=== PATIENT | male | born 1950 | race Caucasian/White ===

== ENCOUNTER → 2017-08-08 | Outpatient (CLI) | payer BC ==
[~2017-08-08] MED LIST: ALA; ALBU1AER9 INH; BIOCIDIN; CHOL1TAB42; COCONUT PO; FISHOIL PO; METHYL CPG; MULTCAP42 PO; NAC; TRANSFER FACTOR; [UNRECOGNIZED DRUG - OTHER]; [UNRECOGNIZED DRUG - OTHER]; [UNRECOGNIZED DRUG - OTHER]; probiotic; tumeric
[2017-08-13 05:39] LABS: ANA SCREEN TC 249X POSITIVE (NEGATIVE); ANTI-SS-A <1.0 NEG AI (<1.0 NEG); ANTI-SS-B <1.0 NEG AI (<1.0 NEG); ANTICARDIOLIPID AB IGA <11 APL (< = 11); COMPLEMENT C3 TC 44859W 121 MG/DL (90-180); COMPLEMENT C4 TC 44982E 26 MG/DL (16-47); MICROSOMAL AB <1 IU/ML (<9)
[2017-08-13 13:08] LABS: ANA TITER 1:40 TITER (<1:40)
== END | disposition home or self-care (01) ==
LOC: C.LAB1850 14:54
PROVIDERS: ATTEND Internal Medicine Infectious Disease
DX: F03.90 Unspecified dementia, unspecified severity, without behavioral disturbance, psychotic disturbance, mood disturbance, and anxiety (principal)

== ENCOUNTER 2022-01-16 11:39 | Inpatient (IN) ==
[2022-01-16 12:22] LABS: Appearance Urine Clear (Clear); Bacteria Urine Automated Negative (Negative); Bilirubin Urine Negative (Negative); Blood Urine Negative (Negative); Color Urine Yellow; Epithelial Cell Urine Auto >30 /lpf (0-5); Glucose Urine UA Trace (Negative); Ketones Urine Trace (Negative); Leukocyte Esterase Urine Negative (Negative); Nitrite Urine Negative (Negative); Protein Urine Trace (Negative); RBC Urine Automated 0-4 /hpf (0-4); Specific Gravity Urine 1.028 (1.000-1.030); Urobilinogen Urine Negative (Negative); pH Urine 6.5 (4.5-7.5)
--- NOTE | 2022-01-16 12:28 | Emergency Department Note ---
History of Present Illness General Chief complaint: Leg Weakness, Bilateral Stated complaint: FELL,LOSS OF MUSCLE CONTROLL,NECK PAIN Time Seen by Provider: 01/16/22 12:16 History of Present Illness 71-year-old male presents to the ED with a chief complaint change in mental status over the past 24 hours. Normally he is able to ambulate but has not been able to ambulate for about 24 hours. He fell last night around 10:30 PM. He fell onto the bed and against a nightstand. He has had a cough for the past cou ple of days. The patient had some Advil this morning. He does have a chronic history of dementia. He has had this for around 10 years. When the contacted the PCPs office, they recommended that the patient come into the ED for evaluation. Home Medications Medication Instructions Recorded Confirmed Type L-Threonine Tab 1 tab PO DAILY 04/01/21 04/01/21 History Bharath Restful Sleep 1 tab PO HS 04/01/21 04/01/21 History aspirin 81 mg tablet 81 mg PO DAILY 04/01/21 04/01/21 History atorvastatin 40 mg tablet 40 mg PO QPM 04/01/21 04/01/21 History memantine 10 mg tablet 10 mg PO BID 04/01/21 04/01/21 History sertraline 50 mg tablet 50 mg PO DAILY 04/01/21 04/01/21 History Allergies Allergy/AdvReac Type Severity Reaction Status Date / Time celecoxib Allergy Unknown RASH Verified 04/01/21 16:47 penicillin V Allergy Unknown COLITIS Verified 04/01/21 16:47 WITH ALL CILLINS Past Med/Surg History Medical History Dementia High cholesterol Surgical History History of knee joint replacement Social History Smoking Status: Never smoker Feels Safe at Home: Yes Review of Systems A total of 10 systems reviewed and were otherwise negative Physical Exam Vital Signs Vital Signs - 24 hr 01/16/22 11:41 01/16/22 12:54 Temperature 36.8 C Temperature Source Temporal Artery Scan Pulse Rate 108 H Pulse Rate [Apical] 68 Pulse Rhythm [Apical] Regular Respiratory Rate 18 16 Respiratory Effort / Characteristics Non-Labored Non-Labored Respiratory Depth Normal Normal Blood Pressure 124/80 Blood Pressure [Right Arm] 121/76 Blood Pressure Mean 94 Blood Pressure Mean [Right Arm] 91 Pulse Oximetry 97 98 Oxygen Delivery Method Room Air Room Air Sepsis Recent Fever Within 48 Hours No Sepsis New/Unexplained Change in Mental Status No Sepsis Action Taken by Nursing No Action Required CONSTITUTIONAL/VITAL SIGNS: Reviewed / noted above. GENERAL: Non-toxic in appearance. INTEGUMENTARY: Warm, dry, and [place]. HEAD: Normocephalic. EYES: without scleral icterus or trauma. ENT/OROPHARYNX: clear and moist. LYMPHADENOPATHY/NECK: Is supple without lymphadenopathy or meningismus. RESPIRATORY: Clear to auscultation bilaterally. No increased work of breathing. CARDIOVASCULAR: Regular rate and rhythm. GI/ABDOMEN: Soft and nontender. No organomegaly or pulsatile mass. EXTREMITIES: Warm and well perfused. BACK: No CVA tenderness. NEUROLOGICAL: Patient does not follow commands. Minimal verbal skills which are known comprehensible. Moves all 4 extremities. PSYCHIATRIC: Unable to assess. MUSCULOSKELETAL: Normally developed with good muscle tone. TRIAGE NURSING DOCUMENTATION REVIEWED. Medical Decision Making Differential Diagnosis Differential includes acute coronary syndrome, myocardial infarction, CVA, TIA, anemia, infection, pneumonia, UTI, pyelonephritis, poor nutrition, dehydration, electrolyte disturbance,hypoglycemia. Medical Records Attestation: I reviewed the patient's medical records. Home Medications Current Medication List: was personally reviewed by me Laboratory Data Attestation: I reviewed the patient's lab results. Result diagrams: 01/16/22 12:16 01/16/22 12:16 Lab Results 01/16/22 01/16/22 01/16/22 Range/Units 11:55 12:16 12:16 WBC 6.58 (4.8-10.8) K/ul RBC 5.02 (4.63-6.08) M/uL Hgb 16.0 (14.0-18.0) g/dl Hct 46.6 (40.1-51.0) % MCV 92.8 (80.0-100.0) fL MCH 31.9 (25.0-34.0) pg MCHC 34.3 (32.0-36.0) g/dL RDW Std Deviation 41.1 (36.4-46.3) fL RDW Coeff of [place] 12.0 (11.5-14.5) % Plt Count 138 (130-400) K/uL MPV 10.0 (9.4-12.4) fL Immature Gran % (Auto) 0.3 % Neut % (Auto) 76.3 % Lymph % (Auto) 12.8 % [place] % (Auto) 9.7 % Eos % (Auto) 0.3 % Baso % (Auto) 0.6 % Neut # (Auto) 5.02 (1.4-6.5) K/uL Lymph # (Auto) 0.84 L (1.2-3.4) K/uL [place] # (Auto) 0.64 (0.24-0.82) K/uL Eos # (Auto) 0.02 (0-0.50) K/uL Baso # (Auto) 0.04 (0-0.2) K/uL Immature Gran # (Auto) 0.02 (0.00-0.02) K/uL Sodium 138 (136-145) mmol/L Potassium 4.2 (3.5-5.1) mmol/L Chloride 100 (98-107) mmol/L Carbon Dioxide 28 (21-32) mmol/L Anion Gap 10 (3-11) BUN 17 (6-23) mg/dl Creatinine 1.19 (0.6-1.4) mg/dl Est Cr Clr Drug Dosing Not Reportable Est GFR ( Amer) 71.8 ml/min Est GFR (Non-Af Amer) 62.0 ml/min BUN/Creatinine Ratio 14.3 (10-20) Glucose 191 H (70-99(Fasting)) mg/dl Calcium 9.2 (8.5-10.1) mg/dl Total Bilirubin 0.9 (0.2-1.0) mg/dl AST 42 H (13-39) U/L ALT 41 (7-52) U/L Alkaline Phosphatase 88 (34-104) U/L Troponin I High Sens 9.5 (0-20) pg/ml Total Protein 7.4 (6.0-8.3) gm/dl Albumin 4.4 (3.4-5.0) gm/dl Globulin 3.0 (2.5-4.0) gm/dl Albumin/Globulin Ratio 1.5 (0.9-2) TSH (0.300-4.500) uIu/ml Urine Color Yellow Urine Appearance Clear (Clear) Urine pH 6.5 (4.5-7.5) Ur Specific [place] 1.028 (1.000-1.030) Urine Protein Trace H (Negative) Urine Glucose (UA) Trace H (Negative) Urine Ketones Trace H (Negative) Urine Blood Negative (Negative) Urine Nitrite Negative (Negative) Urine Bilirubin Negative (Negative) Urine Urobilinogen Negative (Negative) Ur Leukocyte Esterase Negative (Negative) Urine WBC (Auto) 1-5 (0-5) /hpf Urine RBC (Auto) 0-4 (0-4) /hpf U Hyaline Cast (Auto) 1-5 (0-5) /lpf U Epithel Cells (Auto) >30 H (0-5) /lpf Urine Bacteria (Auto) Negative (Negative) Ur Renal Epithelial Cell Not Reportable Urine Mucus Present A (None Prsent) Urine Sperm Present A (None Prsent) SARS-CoV-2, RNA, NAAT (NEGATIVE) 01/16/22 01/16/22 Range/Units 12:16 12:49 WBC (4.8-10.8) K/ul RBC (4.63-6.08) M/uL Hgb (14.0-18.0) g/dl Hct (40.1-51.0) % MCV (80.0-100.0) fL MCH (25.0-34.0) pg MCHC (32.0-36.0) g/dL RDW Std Deviation (36.4-46.3) fL RDW Coeff of [place] (11.5-14.5) % Plt Count (130-400) K/uL MPV (9.4-12.4) fL Immature Gran % (Auto) % Neut % (Auto) % Lymph % (Auto) % [place] % (Auto) % Eos % (Auto) % Baso % (Auto) % Neut # (Auto) (1.4-6.5) K/uL Lymph # (Auto) (1.2-3.4) K/uL [place] # (Auto) (0.24-0.82) K/uL Eos # (Auto) (0-0.50) K/uL Baso # (Auto) (0-0.2) K/uL Immature Gran # (Auto) (0.00-0.02) K/uL Sodium (136-145) mmol/L Potassium (3.5-5.1) mmol/L Chloride (98-107) mmol/L Carbon Dioxide (21-32) mmol/L Anion Gap (3-11) BUN (6-23) mg/dl Creatinine (0.6-1.4) mg/dl Est Cr Clr Drug Dosing Est GFR ( Amer) ml/min Est GFR (Non-Af Amer) ml/min BUN/Creatinine Ratio (10-20) Glucose (70-99(Fasting)) mg/dl Calcium (8.5-10.1) mg/dl Total Bilirubin (0.2-1.0) mg/dl AST (13-39) U/L ALT (7-52) U/L Alkaline Phosphatase (34-104) U/L Troponin I High Sens (0-20) pg/ml Total Protein (6.0-8.3) gm/dl Albumin (3.4-5.0) gm/dl Globulin (2.5-4.0) gm/dl Albumin/Globulin Ratio (0.9-2) TSH 1.384 (0.300-4.500) uIu/ml Urine Color Urine Appearance (Clear) Urine pH (4.5-7.5) Ur Specific [place] (1.000-1.030) Urine Protein (Negative) Urine Glucose (UA) (Negative) Urine Ketones (Negative) Urine Blood (Negative) Urine Nitrite (Negative) Urine Bilirubin (Negative) Urine Urobilinogen (Negative) Ur Leukocyte Esterase (Negative) Urine WBC (Auto) (0-5) /hpf Urine RBC (Auto) (0-4) /hpf U Hyaline Cast (Auto) (0-5) /lpf U Epithel Cells (Auto) (0-5) /lpf Urine Bacteria (Auto) (Negative) Ur Renal Epithelial Cell Urine Mucus (None Prsent) Urine Sperm (None Prsent) SARS-CoV-2, RNA, NAAT POSITIVE A* (NEGATIVE) Imaging Data Radiologist's Impression: Chest X-Ray 01/16/22 11:48 XR chest 1V portable CLINICAL HISTORY: weakness COMPARISON STUDY: Chest radiograph April 01, 2021. FINDINGS: Lung volumes are normal. Linear left basilar opacity reflects atelectasis. There is no pneumothorax or pleural effusion. Cardiac size is normal. Mediastinal contours are normal. There is no evidence for pulmonary edema. Old left-sided rib deformities are unchanged. IMPRESSION: No acute cardiopulmonary findings. ACT 112: Negative or not required by law. Electronically signed by: Jaxon Chavira M.D. 01/16/2022 12:[address] 01/16/22 12:27 CT cervical spine wo con CLINICAL HISTORY: fall TECHNIQUE: Multidetector row helical CT of the cervical spine was performed without administration of intravenous contrast. Coronal and sagittal reformations were obtained. Automated dose lowering techniques and/or adjustment according to patient size were utilized for this exam. Comparison: None available at the time of this dictation. FINDINGS: No acute fractures or subluxations are identified. Degenerative changes are seen in the visualized spine. The alignment is normal. Soft tissues are unremarkable. IMPRESSION: Degenerative changes without evidence of acute bony injury. ACT 112: Negative or not required by law. Electronically signed by: Giancarlo Cruz M.D. 01/16/2022 1:[address] 01/16/22 12:27 CT head/brain wo con CLINICAL HISTORY: fall with pain COMPARISON STUDY: No previous studies for comparison. CT DOSE: 823.94 mGycm TECHNIQUE: Standard CT of the Brain was performed without IV contrast. A dose lowering technique was utilized adhering to the principles of ALARA. FINDINGS: Extraaxial space: There is no evidence for subdural hematoma. There are no extra-axial fluid collections. Ventricles and cisterns: The ventricles are mildly to moderately dilated bilaterally. There is no evidence for midline shift or mass effect. Parenchyma: There is no subarachnoid or intraparenchymal hemorrhage. There is no evidence for an acute infarct or cerebral edema. There is evidence for an old, sharply defined lacunar infarct within the basal ganglia on the left. There is mild cerebral cortical atrophy and decreased attenuation in the periventricular white matter representing remote small vessel disease. There are no gross mass lesions. Osseous structures: There is no evidence for an acute fracture. There is mild mucosal thickening involving the floor the right maxillary. The remaining visual ized paranasal sinuses are clear. The mastoid air cells are clear bilaterally. Soft tissues: There is no evidence for focal soft tissue swelling. IMPRESSION: 1. No acute intracerebral pathology. 2. Old lacunar infarct within the basal ganglia on the left. 3. Mild cerebral cortical atrophy and remote small vessel disease. 4. Mild chronic right maxillary sinusitis ACT 112: Negative or not required by law. Electronically signed by: Gavino Keys M.D. 01/16/2022 1:32 PM ECG Data Attestation: I personally reviewed and interpreted this ECG as follows: Additional Comments: Twelve-lead EKG: Per my interpretation shows a normal sinus rhythm at a rate of 67. No ST elevation. No PVCs. Normal QTC. MDM Narrative 71-year-old male presents to the ED from home with a concern about worsening weakness and a fall in the setting of chronic dementia. Fell last night around 10:30 PM. Past 24 hours has not been able to ambulate. Normally ambulates without assistance devices. His twelve-lead EKG shows a normal sinus rhythm. Urine did not show infection. CBC was normal. Chemistry panel was unremarkable. Glucose is 191. Troponin was negative. TSH was normal. Urine did not show infection. CT scan of the head and CT scan of the cervical spine did not show acute injury. Chest x-ray was also negative for acute disease. COVID test was positive. The patient and family were told the results of the test. The patient was seen by the hospitalist for further evaluation and care. Impression & Plan Ambulatory dysfunction, Altered mental status, COVID-19 Discharge Plan Visit Data Chief Complaint: Leg Weakness, Bilateral Stated Complaint: FELL,LOSS OF MUSCLE CONTROLL,NECK PAIN ED Provider: Fidencio Alvarez Discharge Problem: Ambulatory dysfunction, Altered mental status, COVID-19 Patient Disposition: Being Evaluated by Hospitalist Forms Stand Alone Forms: My [facility], Virtual Emergency Department, Important Visit Information Prescriptions Prescriptions: No Action memantine 10 mg tablet 10 mg PO BID atorvastatin 40 mg tablet 40 mg PO QPM Low-Dose Aspirin 81 mg Tablet 81 mg PO DAILY sertraline 50 mg tablet 50 mg PO DAILY L-Threonine Tab 1 tab PO DAILY Bharath Restful Sleep 1 tab PO HS Referrals Referrals: Corby Cox, [Primary Care Provider] -
[2022-01-16 12:37] LABS: Mucus Urine Present (None Prsent)
[2022-01-16 12:38] LABS: Sperm Urine Present (None Prsent)
--- NOTE | 2022-01-16 12:38 | XRay Report ---
XR chest 1V portable CLINICAL HISTORY: weakness COMPARISON STUDY: Chest radiograph April 01, 2021. FINDINGS: Lung volumes are normal. Linear left basilar opacity reflects atelectasis. There is no pneu mothorax or pleural effusion. Cardiac size is normal. Mediastinal contours are normal. There is no ev idence for pulmonary edema. Old left-sided rib deformities are unchanged. IMPRESSION: No acute cardiopulmonary findings. ACT 112: Negative or not required by law. Electronically signed by: Jaxon Chavira M.D. 01/16/2022 12:37 PM
[2022-01-16 12:59] LABS: Troponin I High Sensitivity 9.5 pg/ml (0-20)
[2022-01-16 13:05] LABS: Alanine Aminotransferase 41 U/L (7-52); Albumin Globulin Ratio 1.5 (0.9-2); Albumin Level 4.4 gm/dl (3.4-5.0); Alkaline Phosphatase 88 U/L (34-104); Anion Gap 10 (3-11); Aspartate Aminotransferase 42 U/L (13-39); BUN Creatinine Ratio 14.3 (10-20); Bilirubin,Total 0.9 mg/dl (0.2-1.0); Blood Urea Nitrogen 17 mg/dl (6-23); Calcium 9.2 mg/dl (8.5-10.1); Carbon Dioxide 28 mmol/L (21-32); Chloride 100 mmol/L (98-107); Est GFR (African American) 71.8 ml/min; Glucose 191 mg/dl (70-99(Fasting)); Potassium 4.2 mmol/L (3.5-5.1); Sodium 138 mmol/L (136-145); Total Protein 7.4 gm/dl (6.0-8.3)
[2022-01-16 13:10] LABS: Hematocrit (blood only) 46.6 % (40.1-51.0); Mean Corpuscular Hemoglobin 31.9 pg (25.0-34.0); Mean Corpuscular Hgb Conc 34.3 g/dL (32.0-36.0); Mean Corpuscular Volume 92.8 fL (80.0-100.0); Platelet Count 138 K/uL (130-400); RDW Standard Deviation 41.1 fL (36.4-46.3); Red Blood Count 5.02 M/uL (4.63-6.08); White Blood Count 6.58 K/ul (4.8-10.8)
[2022-01-16 13:11] LABS: Basophils # (auto) 0.04 K/uL (0-0.2); Basophils % (auto) 0.6 %; Eosinophils # (auto) 0.02 K/uL (0-0.50); Eosinophils % (auto) 0.3 %; Immature Granulocytes # (auto) 0.02 K/uL (0.00-0.02); Immature Granulocytes % (auto) 0.3 %; Lymphocytes # (auto) 0.84 K/uL (1.2-3.4); Lymphocytes % (auto) 12.8 %; Monocytes # (auto) 0.64 K/uL (0.24-0.82); Monocytes % (auto) 9.7 %; Neutrophils # (auto) 5.02 K/uL (1.4-6.5); Neutrophils % (auto) 76.3 %
--- NOTE | 2022-01-16 13:33 | CT Scan Report ---
CT head/brain wo con CLINICAL HISTORY: fall with pain COMPARISON STUDY: No previous studies for comparison. CT DOSE: 823.94 mGycm TECHNIQUE: Standard CT of the Brain was performed without IV contrast. A dose lowering technique was utilized adhering to the principles of ALARA. FINDINGS: Extraaxial space: There is no evidence for subdural hematoma. There are no extra-axial fluid collecti ons. Ventricles and cisterns: The ventricles are mildly to moderately dilated bilaterally. There is no bryon dence for midline shift or mass effect. Parenchyma: There is no subarachnoid or intraparenchymal hemorrhage. There is no evidence for an acut e infarct or cerebral edema. There is evidence for an old, sharply defined lacunar infarct within the basal ganglia on the left. There is mild cerebral cortical atrophy and decreased attenuation in the periventricular white matter representing remote small vessel disease. There are no gross mass lesion s. Osseous structures: There is no evidence for an acute fracture. There is mild mucosal thickening invo lving the floor the right maxillary. The remaining visualized paranasal sinuses are clear. The mastoi d air cells are clear bilaterally. Soft tissues: There is no evidence for focal soft tissue swelling. IMPRESSION: 1. No acute intracerebral pathology. 2. Old lacunar infarct within the basal ganglia on the left. 3. Mild cerebral cortical atrophy and remote small vessel disease. 4. Mild chronic right maxillary sinusitis ACT 112: Negative or not required by law. Electronically signed by: Gavino Keys M.D. 01/16/2022 1:32 PM
--- NOTE | 2022-01-16 13:37 | CT Scan Report ---
CT cervical spine wo con CLINICAL HISTORY: fall TECHNIQUE: Multidetector row helical CT of the cervical spine was performed without administration of intravenous contrast. Coronal and sagittal reformations were obtained. Automated dose lowering techn iques and/or adjustment according to patient size were utilized for this exam. Comparison: None available at the time of this dictation. FINDINGS: No acute fractures or subluxations are identified. Degenerative changes are seen in the visualized sp ine. The alignment is normal. Soft tissues are unremarkable. IMPRESSION: Degenerative changes without evidence of acute bony injury. ACT 112: Negative or not required by law. Electronically signed by: Giancarlo Cruz M.D. 01/16/2022 1:36 PM
--- NOTE | 2022-01-16 15:41 | History & Physical Report ---
Date of Service January 16, 2022 Assessment & Plan (1) Dementia: (2) Ambulatory dysfunction: Plan: Admit to [facility] Patient presenting from home with generalized weakness, fall. Head CT, C-spine CT negative for acute findings. History of advanced dementia Tested positive for COVID-19 in the ED Patient currently too weak to return home with . states that she is considering long-term placement. PT/OT, case management consults (3) COVID-19: Plan: Saturating well on room air, no signs of pneumonia on CXR No indication for COVID-19 directed therapies at this time Trace ketones noted in urine, patient may be mildly dehydrated, will give 1 L IVF (4) History of CVA (cerebrovascular accident): Plan: Continue ASA and statin (5) DVT prophylaxis: Plan: SQ Lovenox History of Present Illness Chief Complaint: Generalized weakness Primary Care Provider: Corby Cox DO 71-year-old male with PMH advanced dementia, history of CVA, HLD, and other problems listed below who presents the ED for evaluation of generalized weakness. Due to patient's advanced dementia, history is unobtainable from him. History is obtained from patient's at the bedside. A couple of days ago, while taking their dog for a walk, patient's noticed that he was shuffling his feet and leaning forward. Yesterday, patient was increasingly confused from his baseline. He had fallen out of bed overnight. Patient typically can walk unassisted. His speech is garbled and nonsensical at baseline. notes a mild cough and rhinorrhea since yesterday. No fever. No other symptoms reported. In the ED, patient tested positive for COVID-19. No signs of pneumonia on CXR and patient is saturating well on room air. Labs unremarkable. Patient is currently too weak to return home with his . Allergies Allergy/AdvReac Type Severity Reaction Status Date / Time ampicillin Allergy Unknown colitis Verified 01/16/22 15:55 celecoxib Allergy Unknown RASH Verified 04/01/21 16:47 clindamycin Allergy Unknown colitis Verified 01/16/22 15:55 penicillin V Allergy Unknown COLITIS Verified 04/01/21 16:47 WITH ALL CILLINS Home Medications Medication Instructions Recorded Confirmed Type L-Threonine Tab 1 tab PO DAILY 04/01/21 01/16/22 History Bharath Restful Sleep 1 tab PO HS 04/01/21 01/16/22 History aspirin 81 mg tablet 81 mg PO Q2D 04/01/21 01/16/22 History atorvastatin 40 mg tablet 40 mg PO QPM 04/01/21 01/16/22 History memantine 10 mg tablet 10 mg PO BID 04/01/21 01/16/22 History sertraline 50 mg tablet 50 mg PO DAILY 04/01/21 01/16/22 History Past Med/Surg History Medical History (Updated 01/16/22 @ 15:51 by RICARDO Bains) Dementia High cholesterol History of CVA (cerebrovascular accident) Surgical History History of knee joint replacement Family History (Updated 01/16/22 @ 15:48 by RICARDO Bains) Mother Diabetes Social History (Updated 01/16/22 @ 15:48 by RICARDO Bains) Smoking Status: Never smoker Hx Alcohol Use: No Feels Safe at Home: Yes Review of Systems Review of Systems: Unobtainable due to cognitive status Physical Exam Constitutional: WD/WN, vitals as above Eyes: PERRL, conjunctivae normal, anicteric sclerae ENMT: external ear and nose normal, oropharynx normal Respiratory: normal respiratory effort, lungs clear to auscultation Cardiovascular: Rate/Rhythm: regular rate and regular rhythm Vessels: normal peripheral pulses Extremities: no edema Gastrointestinal (Abdomen): normal bowel sounds, soft, nontender, no hepatosplenomegaly Musculoskeletal: Extremities: no cyanosis and no clubbing Patient does not look commands in order to assess strength Skin: no rashes, warm and dry Neurologic: Speech / Cognition: + abnormal speech (Mumbled, nonsensical speech) Unable to complete neurologic exam due to underlying advanced dementia Psychiatric: Orientation: alert; + not oriented to person, + not oriented to place and + not oriented to time Results & Data Results & Data ([facility]) Vital Signs (Past 12 Hours) Vital Signs Temp Pulse Pulse Resp BP BP Pulse Ox 01/16/22 14:00 70 16 107/86 97 01/16/22 12:54 68 16 121/76 98 01/16/22 11:41 36.8 C 108 H 18 124/80 97 O2 Del Method 01/16/22 14:00 Room Air 01/16/22 12:54 Room Air 01/16/22 11:41 Room Air Laboratory Results Short CBC 01/16/22 Range/Units 12:16 WBC 6.58 (4.8-10.8) K/ul Hgb 16.0 (14.0-18.0) g/dl Hct 46.6 (40.1-51.0) % Plt Count 138 (130-400) K/uL BMP 01/16/22 12:16 Sodium 138 Potassium 4.2 Chloride 100 Carbon Dioxide 28 BUN 17 Creatinine 1.19 Glucose 191 H Calcium 9.2 Liver Function 01/16/22 Range/Units 12:16 Total Bilirubin 0.9 (0.2-1.0) mg/dl AST 42 H (13-39) U/L ALT 41 (7-52) U/L Alkaline Phosphatase 88 (34-104) U/L Albumin 4.4 (3.4-5.0) gm/dl Urine 01/16/22 Range/Units 11:55 Urine Color Yellow Urine Appearance Clear (Clear) Urine pH 6.5 (4.5-7.5) Ur Specific [place] 1.028 (1.000-1.030) Urine Protein Trace H (Negative) Urine Glucose (UA) Trace H (Negative) Diagnostic Findings Chest X-Ray 01/16/22 11:48 XR chest 1V portable CLINICAL HISTORY: weakness COMPARISON STUDY: Chest radiograph April 01, 2021. FINDINGS: Lung volumes are normal. Linear left basilar opacity reflects atelectasis. There is no pneumothorax or pleural effusion. Cardiac size is normal. Mediastinal contours are normal. There is no evidence for pulmonary edema. Old left-sided rib deformities are unchanged. IMPRESSION: No acute cardiopulmonary findings. ACT 112: Negative or not required by law. Electronically signed by: Jaxon Chavira M.D. 01/16/2022 12:[address] 01/16/22 12:27 CT cervical spine wo con CLINICAL HISTORY: fall TECHNIQUE: Multidetector row helical CT of the cervical spine was performed without administration of intravenous contrast. Coronal and sagittal reformations were obtained. Automated dose lowering techniques and/or adjustment according to patient size were utilized for this exam. Comparison: None available at the time of this dictation. FINDINGS: No acute fractures or subluxations are identified. Degenerative changes are seen in the visualized spine. The alignment is normal. Soft tissues are unremarkable. IMPRESSION: Degenerative changes without evidence of acute bony injury. ACT 112: Negative or not required by law. Electronically signed by: Giancarlo Cruz M.D. 01/16/2022 1:[address] 01/16/22 12:27 CT head/brain wo con CLINICAL HISTORY: fall with pain COMPARISON STUDY: No previous studies for comparison. CT DOSE: 823.94 mGycm TECHNIQUE: Standard CT of the Brain was performed without IV contrast. A dose lowering technique was utilized adhering to the principles of ALARA. FINDINGS: Extraaxial space: There is no evidence for subdural hematoma. There are no extra-axial fluid collections. Ventricles and cisterns: The ventricles are mildly to moderately dilated bilaterally. There is no evidence for midline shift or mass effect. Parenchyma: There is no subarachnoid or intraparenchymal hemorrhage. There is no evidence for an acute infarct or cerebral edema. There is evidence for an old, sharply defined lacunar infarct within the basal ganglia on the left. There is mild cerebral cortical atrophy and decreased attenuation in the periventricular white matter representing remote small vessel disease. There are no gross mass lesions. Osseous structures: There is no evidence for an acute fracture. There is mild mucosal thickening involving the floor the right maxillary. The remaining visualized paranasal sinuses are clear. The mastoid air cells are clear bilaterally. Soft tissues: There is no evidence for focal soft tissue swelling. IMPRESSION: 1. No acute intracerebral pathology. 2. Old lacunar infarct within the basal ganglia on the left. 3. Mild cerebral cortical atrophy and remote small vessel disease. 4. Mild chronic right maxillary sinusitis ACT 112: Negative or not required by law. Electronically signed by: Gavino Keys M.D. 01/16/2022 1:32 PM Code Status & VTE Plan Code Status Patient is a DNR as per my discussion with his who is at the bedside. Supervising Physician Co-Signing Physician Notes Patient was seen and examined independently at bedside. Chart reviewed. Case discussed with Poonam SILVA and agree with the documentation above with regards to HPI, physical exam and assessment plan. In summary, this is a 71 year old male with advanced Alzheimer's dementia who presented with generalized weakness and ambulatory dysfunction in setting of COVID 19 infection. Vitals stable, saturating well in room air. Awake alert but not answering appropriately or following commands, chest clear, abd benign, heart sounds normal, no LE edema. Will place in observation, gentle ivf, PT/OT eval, will need rehab. Rest as per the note above.
[2022-01-16] MEDS ORDERED: GLUCOSE 40% GEL 15 GM TUBE PO PRN (17:41)
[2022-01-16] MEDS ORDERED: SODIUM CHLORIDE 0.9% 1000ML 1,000 ML IV SCH (17:41)
[2022-01-16] MEDS ORDERED: GLUCOSE 10 TAB/TUBE PO PRN (17:41)
[2022-01-16] MEDS ORDERED: DEXTROSE 50% 50 ML SYRINGE IV PRN (17:41)
[2022-01-16] MEDS ORDERED: GLUCAGON FOR INJ 1 MG VIAL SQ PRN (17:41)
[2022-01-16] MEDS ORDERED: CARBOHYDRATES FOR HYPOGLYCEMIA PO PRN (17:41)
[2022-01-16] MEDS ORDERED: Patient's HEIGHT &/or WEIGHT Needed SCH (18:00)
[2022-01-16] MEDS: SERTRALINE HCL 50 MG TABLET PO SCH (19:50)
[2022-01-16] MEDS: ATORVASTATIN 40 MG TAB PO SCH (19:51)
[2022-01-16] MEDS: MEMANTINE HCL 10 MG TAB PO SCH (19:52)
[2022-01-16] MEDS: INSULIN ASPART PER UNIT SC SCH ×2 (20:51→21:31)
[2022-01-16] MEDS: ACETAMINOPHEN 325 MG TAB PO PRN (21:37)
[2022-01-16] MEDS: ENOXAPARIN INJ 40 MG/0.4 ML SYR SQ SCH (21:37)
--- NOTE | 2022-01-17 06:01 | Electrocardiogram Report ---
Test Reason : Blood Pressure : / mmHG Vent. Rate : 067 BPM Atrial Rate : 067 BPM P-R Int : 186 ms QRS Dur : 078 ms QT Int : 442 ms P-R-T Axes : 055 101 023 degrees QTc Int : 467 ms Normal sinus rhythm Rightward axis Cannot rule out Anterior infarct , age undetermined Nonspecific T wave abnormality Abnormal ECG When compared with ECG of 01-APR-2021 14:45, MA interval has decreased Nonspecific T wave abnormality now evident in Anterior leads Confirmed by Fan Gomez ([id number]) on 01/17/2022 6:00:46 AM Referred By: Confirmed By:Fan Gomez
[2022-01-17] MEDS: MEMANTINE HCL 10 MG TAB PO SCH ×2 (07:52→20:19)
[2022-01-17] MEDS: ASPIRIN 81 MG ECTAB PO SCH (07:52)
[2022-01-17] MEDS: SERTRALINE HCL 50 MG TABLET PO SCH (07:53)
[2022-01-17 08:02] LABS: BUN Creatinine Ratio 15.6 (10-20); Calcium 7.9 mg/dl (8.5-10.1); Creatinine Clr Calc Pharmacy 70.3 ml/min; Est GFR (African American) 93.1 ml/min; Est GFR (Non-African American) 80.3 ml/min; Potassium 4.1 mmol/L (3.5-5.1)
[2022-01-17 08:07] LABS: Hematocrit (blood only) 40.1 % (40.1-51.0); Hemoglobin 14.1 g/dl (14.0-18.0); Mean Corpuscular Hgb Conc 35.2 g/dL (32.0-36.0); Mean Corpuscular Volume 91.1 fL (80.0-100.0); Mean Platelet Volume 9.9 fL (9.4-12.4); Platelet Count 112 K/uL (130-400); RDW Coefficient of Variation 11.9 % (11.5-14.5); RDW Standard Deviation 39.9 fL (36.4-46.3); White Blood Count 8.17 K/ul (4.8-10.8)
[2022-01-17 08:21] LABS: Estimated Average Glucose 137 mg/dl; Hemoglobin A1C 6.4 % (4.5-5.6)
[2022-01-17] MEDS: INSULIN ASPART PER UNIT SC SCH ×4 (09:00→20:18)
--- NOTE | 2022-01-17 11:02 | Hospitalist Progress Note ---
Date of Service January 17, 2022 Assessment & Plan (1) Dementia: Plan: - advanced stage - is primary caregiver who has MS - she feels she is not able to care for him at home any more and he becomes belligerent and aggressive with her at times and she sometimes feels for her physical safety - he is ambulatory at baseline and can get himself to the bathroom usually, per his - not oriented, mostly dependent on most ADLs - looking for LTC placement most likely - CM consulted for above (2) Ambulatory dysfunction: Plan: - Admit to [facility] - Patient presenting from home with generalized weakness, fall. - Head CT, C-spine CT negative for acute findings. - History of advanced dementia - Tested positive for COVID-19 - no pulmonary concerns of pneumonia but likely contributing to his decreased PO intake leading to weakness - improved since IVF - Patient currently too weak to return home with . states that she is considering long-term placement. - PT/OT, case management consults (3) COVID-19: Plan: - Saturating well on room air, no signs of pneumonia on CXR - No indication for COVID-19 directed therapies at this time - Trace ketones noted in urine, patient likely dehydrated - s/p 1 L IVF - encourage PO intake (4) History of CVA (cerebrovascular accident): Plan: - Continue ASA and statin (5) DVT prophylaxis: Plan: - SQ Lovenox Plan DNR/DNI Med/surg Dispo - needs LTC placement - patient medically stable for discharge when facility available - CM consulted Cecil Song MD [facility] Medicine Admission and Anticipated Discharge Date Admission Date: January 16, 2022 Subjective The patient is 71 year old man with pmh advanced dementia, h/o CVA, HLD who presented with generalized weakness from home. Patient found to have COVID19 without pneumonia but likely contributed to his dehydration and decreased functional capacity from baseline. Given IVF and PT/OT consulted. leaning toward LTC as it is difficult for her to care for him by herself. The patient has advanced dementia and was not able to full participate in the exam. Denied any complaints when asked. says he looks better than when he came in yesterday. Review of Systems Review of Systems: All systems reviewed & are unremarkable except as noted in Subjective Physical Exam Physical Exam: Constitutional:L WD/WN, vitals as a james Eyes: PERRL, conjunctiva e normal, anicteri c sclerae ENMT: external ear and n ose normal, oropha rynx normal Respiratory: normal respiratory effort, lungs ronald ar to auscultation Cardiovascular:L Rate/Rhythm: regul ar rate and regula r rhythm Vessels: normal peripheral pulses Extremiti es: no edema Gastrointestinal ( Abdomen): normal bowel sound s, soft, nontender , no hepatosplenom egaly Musculoskeletal: L Extremities: no cy anosis and no club bruno Patient does not follow comman ds consistently in order to assess s trength full - mov ing all extremitie s Skin: no rashes, warm an d dry Neurologic: Speech / Cognition : + abnormal speec h (Mumbled, nonsen sical speech at ti mes) Unable to co mplete neurologic exam due to underl zaire advanced noé ntia Psychiatric: Orientation: alert ; + not oriented t o person, + not or iented to place an d + not oriented t o time Results & Data Results & Data ([facility]) Vital Signs (Past 12 Hours) Vital Signs Temp Pulse Resp BP Pulse Ox O2 Del Method 01/17/22 08:39 36.7 C 65 18 123/82 97 Room Air 01/17/22 08:08 Room Air Laboratory Results Short CBC 01/16/22 01/17/22 Range/Units 12:16 07:12 WBC 6.58 8.17 (4.8-10.8) K/ul Hgb 16.0 14.1 (14.0-18.0) g/dl Hct 46.6 40.1 (40.1-51.0) % Plt Count 138 112 L (130-400) K/uL BMP 01/16/22 01/17/22 12:16 07:12 Sodium 138 138 Potassium 4.2 4.1 Chloride 100 104 Carbon Dioxide 28 28 BUN 17 15 Creatinine 1.19 0.96 Glucose 191 H 140 H Calcium 9.2 7.9 L Liver Function 01/16/22 Range/Units 12:16 Total Bilirubin 0.9 (0.2-1.0) mg/dl AST 42 H (13-39) U/L ALT 41 (7-52) U/L Alkaline Phosphatase 88 (34-104) U/L Albumin 4.4 (3.4-5.0) gm/dl Urine 01/16/22 Range/Units 11:55 Urine Color Yellow Urine Appearance Clear (Clear) Urine pH 6.5 (4.5-7.5) Ur Specific [place] 1.028 (1.000-1.030) Urine Protein Trace H (Negative) Urine Glucose (UA) Trace H (Negative) Medications Administered Current Inpatient Medications Acetaminophen (Acetaminophen 325 Mg Tab) 650 mg PO Q4H PRN PRN Reason: pain/fever Stop: 02/15/22 17:40 Last Admin: 01/16/22 21:37 Dose: 650 mg Aspirin (Aspirin 81 Mg Ectab) 81 mg PO Q2D@0900 GIANCARLO Stop: 02/16/22 08:59 Last Admin: 01/17/22 07:52 Dose: 81 mg Atorvastatin Calcium (Atorvastatin 40 Mg Tab) 40 mg PO QPM GIANCARLO Stop: 02/15/22 20:59 Last Admin: 01/16/22 19:51 Dose: 40 mg Dextrose (Dextrose 50% 50 Ml Syringe) 25 - 50 ml IV UD PRN; Protocol PRN Reason: Hypoglycemia Protocol Stop: 02/15/22 17:40 Enoxaparin Sodium (Enoxaparin Inj 40 Mg/0.4 Ml Syr) 40 mg SQ QPM GIANCARLO Stop: 02/15/22 20:59 Last Admin: 01/16/22 21:37 Dose: 40 mg Glucagon (Glucagon For Inj 1 Mg Vial) 1 mg SQ UD PRN; Protocol PRN Reason: Hypoglycemia Protocol Stop: 02/15/22 17:40 Glucose (Glucose 40% Gel 15 Gm Tube) 15 - 30 gm PO UD PRN; Protocol PRN Reason: Hypoglycemia Protocol Stop: 02/15/22 17:40 Glucose (Glucose 10 Tab/Tube) 4 - 8 tab PO UD PRN; Protocol PRN Reason: Hypoglycemia Treatment Stop: 02/15/22 17:40 Insulin Aspart (Insulin Aspart Per Unit) 0 units SC ACHS GIANCARLO Stop: 02/15/22 17:40 Last Admin: 01/17/22 09:00 Dose: 7 units Memantine (Memantine Hcl 10 Mg Tab) 10 mg PO BID GIANCARLO Stop: 02/15/22 20:59 Last Admin: 01/17/22 07:52 Dose: 10 mg Miscellaneous (Carbohydrates For Hypoglycemia ) 15 - 30 gm PO UD PRN PRN Reason: Hypoglycemia Protocol Stop: 02/15/22 17:40 Sertraline HCl (Sertraline Hcl 50 Mg Tablet) 50 mg PO DAILY GIANCARLO Stop: 02/15/22 17:40 Last Admin: 01/17/22 07:53 Dose: 50 mg
[2022-01-17] MEDS: ATORVASTATIN 40 MG TAB PO SCH (20:15)
[2022-01-17] MEDS: ENOXAPARIN INJ 40 MG/0.4 ML SYR SQ SCH (20:16)
[2022-01-17] MEDS: ACETAMINOPHEN 325 MG TAB PO PRN (20:19)
[2022-01-18] MEDS: MEMANTINE HCL 10 MG TAB PO SCH ×2 (08:49→22:18)
[2022-01-18] MEDS: SERTRALINE HCL 50 MG TABLET PO SCH (08:49)
[2022-01-18] MEDS: INSULIN ASPART PER UNIT SC SCH ×4 (09:00→21:01)
--- NOTE | 2022-01-18 20:56 | Hospitalist Progress Note ---
Date of Service January 18, 2022 Assessment & Plan (1) Ambulatory dysfunction: Plan: - Patient presenting from home with generalized weakness, fall. - Head CT, C-spine CT negative for acute findings. - History of advanced dementia - Tested positive for COVID-19 - no pulmonary concerns of pneumonia but likely contributing to his decreased PO intake leading to weakness - improved since IVF - Patient currently too weak to return home with . states that she is considering long-term placement. - PT/OT, case management consults -Fall precaution (2) Dementia: Plan: - advanced stage - is primary caregiver who has MS - she feels she is not able to care for him at home any more and he becomes belligerent and aggressive with her at times and she sometimes feels for her physical safety - he is ambulatory at baseline and can get himself to the bathroom usually, per his - not oriented, mostly dependent on most ADLs - looking for LTC placement most likely -Case management working on placement (3) COVID-19: Plan: - Saturating well on room air, no signs of pneumonia on CXR - No indication for COVID-19 directed therapies at this time -Clinically stable (4) History of CVA (cerebrovascular accident): Plan: - Continue ASA and statin (5) DVT prophylaxis: Plan: - SQ Lovenox Plan DNR/DNI Med/surg Disposition Waiting for placement Admission and Anticipated Discharge Date Admission Date: January 17, 2022 Subjective Patient was seen and examined for follow-up generalized weakness and COVID 19 Sitting in the commode with present As per patient started looking much better His strength improves compared to when he came he Is very calm and cooperative with no abnormal behavior Denies any chest pain, palpitation, dizziness, shortness of breath. Review of Systems Review of Systems: All systems reviewed & are unremarkable except as noted in Subjective Physical Exam Physical Exam: General- No acute distress, dementia Head- atraumatic Eyes- PERRL, EOMI, ENT- oropharynx clear Neck- supple, no JVD Lungs- clear to auscultation Heart- regular rhythm; no murmur Abdomen- normal bowel sounds, soft, nontender Extremities- no calf tenderness Neuro- EOMI; no facial palsy; no dysarthria, + abnormal speech (Mumbled, nonse nsical speech) Skin- warm & dry Results & Data Results & Data ([facility]) Vital Signs (Past 12 Hours) Vital Signs Temp Pulse Resp BP Pulse Ox O2 Del Method 01/18/22 16:46 36.7 C 60 16 96/61 L 100 Room Air 01/18/22 09:01 Room Air
[2022-01-18] MEDS: ATORVASTATIN 40 MG TAB PO SCH (22:17)
[2022-01-18] MEDS: ENOXAPARIN INJ 40 MG/0.4 ML SYR SQ SCH (22:19)
[2022-01-19] MEDS: ASPIRIN 81 MG ECTAB PO SCH (09:41)
[2022-01-19] MEDS: SERTRALINE HCL 50 MG TABLET PO SCH (09:41)
[2022-01-19] MEDS: MEMANTINE HCL 10 MG TAB PO SCH ×2 (09:41→22:01)
[2022-01-19] MEDS: INSULIN ASPART PER UNIT SC SCH ×4 (10:23→22:01)
--- NOTE | 2022-01-19 16:48 | Hospitalist Progress Note ---
Date of Service January 19, 2022 Assessment & Plan (1) Ambulatory dysfunction: Plan: - Patient presenting from home with generalized weakness, fall. - Head CT, C-spine CT negative for acute findings. - History of advanced dementia - Tested positive for COVID-19 - no pulmonary concerns of pneumonia but likely contributing to his decreased PO intake leading to weakness - improved since IVF - Patient currently too weak to return home with . states that she is considering long-term placement. - PT/OT, case management consults -Fall precaution (2) Dementia: Plan: - advanced stage - is primary caregiver who has MS - she feels she is not able to care for him at home any more and he becomes belligerent and aggressive with her at times and she sometimes feels for her physical safety - he is ambulatory at baseline and can get himself to the bathroom usually, per his - not oriented, mostly dependent on most ADLs - looking for LTC placement most likely -Case management working on placement (3) COVID-19: Plan: - Saturating well on room air, no signs of pneumonia on CXR - No indication for COVID-19 directed therapies at this time -Clinically stable (4) History of CVA (cerebrovascular accident): Plan: - Continue ASA and statin (5) DVT prophylaxis: Plan: - SQ Lovenox Plan DNR/DNI Med/surg Disposition Waiting for placement Admission and Anticipated Discharge Date Admission Date: January 17, 2022 Subjective Patient was seen and examined for follow-up generalized weakness and COVID 19 Lying in bed resting comfortable with at bedside said that she cannot take him home because pt sometimes got very aggressive Denies any chest pain, palpitation, dizziness, shortness of breath. Review of Systems Review of Systems: All systems reviewed & are unremarkable except as noted in Subjective Physical Exam Physical Exam: General- No acute distress, dementia Head- atraumatic Eyes- PERRL, EOMI, ENT- oropharynx clear Neck- supple, no JVD Lungs- clear to auscultation Heart- regular rhythm; no murmur Abdomen- normal bowel sounds, soft, nontender Extremities- no calf tenderness Neuro- EOMI; no facial palsy; no dysarthria, + abnormal speech (Mumbled, nonsensical speech) Skin- warm & dry Results & Data Results & Data ([facility]) Vital Signs (Past 12 Hours) Vital Signs Temp Pulse Resp BP Pulse Ox O2 Del Method 01/19/22 08:34 36.4 C L 46 L 16 123/80 98 Room Air
[2022-01-19] MEDS: ATORVASTATIN 40 MG TAB PO SCH (22:01)
[2022-01-19] MEDS: ENOXAPARIN INJ 40 MG/0.4 ML SYR SQ SCH (22:02)
[2022-01-20] MEDS: INSULIN ASPART PER UNIT SC SCH ×4 (08:51→21:31)
[2022-01-20] MEDS: SERTRALINE HCL 50 MG TABLET PO SCH (08:54)
[2022-01-20] MEDS: MEMANTINE HCL 10 MG TAB PO SCH ×2 (08:54→21:01)
[2022-01-20] MEDS: ATORVASTATIN 40 MG TAB PO SCH (21:01)
[2022-01-20] MEDS: ENOXAPARIN INJ 40 MG/0.4 ML SYR SQ SCH (21:01)
[2022-01-21] MEDS: ASPIRIN 81 MG ECTAB PO SCH (09:03)
[2022-01-21] MEDS: SERTRALINE HCL 50 MG TABLET PO SCH (09:03)
[2022-01-21] MEDS: MEMANTINE HCL 10 MG TAB PO SCH ×2 (09:03→20:05)
[2022-01-21] MEDS: INSULIN ASPART PER UNIT SC SCH ×4 (09:04→22:31)
--- NOTE | 2022-01-21 09:32 | Hospitalist Progress Note ---
Date of Service January 20, 2022 Assessment & Plan (1) Ambulatory dysfunction: Plan: - Patient presenting from home with generalized weakness, fall. - Head CT, C-spine CT negative for acute findings. - History of advanced dementia - Tested positive for COVID-19 - no pulmonary concerns of pneumonia but likely contributing to his decreased PO intake leading to weakness - improved since IVF - Patient currently too weak to return home with . states that she is considering long-term placement. - PT/OT, case management consults -Fall precaution (2) Dementia: Plan: - advanced stage - is primary caregiver who has MS - she feels she is not able to care for him at home any more and he becomes belligerent and aggressive with her at times and she sometimes feels for her physical safety - he is ambulatory at baseline and can get himself to the bathroom usually, per his - not oriented, mostly dependent on most ADLs - looking for LTC placement most likely - He has not had any aggressive behavior -Case management working on placement (3) COVID-19: Plan: - Saturating well on room air, no signs of pneumonia on CXR - No indication for COVID-19 directed therapies at this time -Repeat Covid 19 test positive -Clinically stable (4) History of CVA (cerebrovascular accident): Plan: - Continue ASA and statin (5) DVT prophylaxis: Plan: - SQ Lovenox Plan DNR/DNI Med/surg Disposition Waiting for placement Admission and Anticipated Discharge Date Admission Date: January 17, 2022 Subjective Patient was seen and examined for follow-up generalized weakness and COVID 19 Sitting in bed comfortable with at bedside is concerned about the longer pt stays in the hospital, it might get aggressive She said jeanna can take him on Sunday if repeat covid test is negative Denies any complaint Review of Systems Review of Systems: All systems reviewed & are unremarkable except as noted in Subjective Physical Exam Physical Exam: General- No acute distress, dementia Head- atraumatic Eyes- PERRL, EOMI, ENT- oropharynx clear Neck- supple, no JVD Lungs- clear to auscultation Heart- regular rhythm; no murmur Abdomen- normal bowel sounds, soft, nontender Extremities- no calf tenderness Neuro- EOMI; no facial palsy; no dysarthria, + abnormal speech (Mumbled, nonsensical speech) Skin- warm & dry Results & Data Results & Data ([facility]) Vital Signs (Past 12 Hours) Vital Signs Temp Pulse Resp BP Pulse Ox O2 Del Method 01/21/22 09:00 Room Air 01/21/22 08:54 37.0 C 66 16 134/75 92 Room Air
[2022-01-21] MEDS: ATORVASTATIN 40 MG TAB PO SCH (20:05)
[2022-01-21] MEDS: ENOXAPARIN INJ 40 MG/0.4 ML SYR SQ SCH (20:06)
--- NOTE | 2022-01-21 23:58 | Hospitalist Progress Note ---
Date of Service January 21, 2022 Assessment & Plan (1) Ambulatory dysfunction: Plan: - Patient presenting from home with generalized weakness, fall. - Head CT, C-spine CT negative for acute findings. - History of advanced dementia - Tested positive for COVID-19 - no pulmonary concerns of pneumonia but likely contributing to his decreased PO intake leading to weakness - improved since IVF - Patient currently too weak to return home with . states that she is considering long-term placement. - PT/OT recommended inpatient therapy -Fall precaution (2) Dementia: Plan: - advanced stage - is primary caregiver who has MS - she feels she is not able to care for him at home any more and he becomes belligerent and aggressive with her at times and she sometimes feels for her physical safety - he is ambulatory at baseline and can get himself to the bathroom usually, per his - not oriented, mostly dependent on most ADLs - looking for LTC placement most likely - He has not had any aggressive behavior -Case management working on placement (3) COVID-19: Plan: - Saturating well on room air, no signs of pneumonia on CXR - No indication for COVID-19 directed therapies at this time -Repeat Covid 19 test positive - Continue to be asymptomatic -Clinically stable (4) History of CVA (cerebrovascular accident): Plan: - Continue ASA and statin (5) DVT prophylaxis: Plan: - SQ Lovenox Plan DNR/DNI Med/surg Disposition Waiting for placement Admission and Anticipated Discharge Date Admission Date: January 17, 2022 Subjective Patient was seen and examined for follow-up generalized weakness and COVID 19 Sitting in bed comfortable with at bedside Pt is more awake today and was interact today. He shook my hand today said patient symptoms started on Sunday (01/13) but it was tested positive for Covid on Sunday ( 01/16) His repeat COVID test yesterday was positive Denies any complaint Review of Systems Review of Systems: All systems reviewed & are unremarkable except as noted in Subjective Physical Exam Physical Exam: General- No acute distress, dementia Head- atraumatic Eyes- PERRL, EOMI, ENT- oropharynx clear Neck- supple, no JVD Lungs- clear to auscultation Heart- regular rhythm; no murmur Abdomen- normal bowel sounds, soft, nontender Extremities- no calf tenderness Neuro- EOMI; no facial palsy; no dysarthria, + abnormal speech (Mumbled, nonsensical speech) Skin- warm & dry Results & Data Results [facility] ([facility]) Vital Signs (Past 12 Hours) Vital Signs Temp Pulse Resp BP Pulse Ox O2 Del Method 01/21/22 22:01 36.5 C 61 16 107/68 96 Room Air
[2022-01-22] MEDS: INSULIN ASPART PER UNIT SC SCH ×4 (08:46→23:54)
[2022-01-22] MEDS: SERTRALINE HCL 50 MG TABLET PO SCH (08:46)
[2022-01-22] MEDS: MEMANTINE HCL 10 MG TAB PO SCH ×2 (08:46→21:04)
[2022-01-22] MEDS: ENOXAPARIN INJ 40 MG/0.4 ML SYR SQ SCH (21:04)
[2022-01-22] MEDS: ATORVASTATIN 40 MG TAB PO SCH (21:04)
--- NOTE | 2022-01-22 23:50 | Hospitalist Progress Note ---
Date of Service January 22, 2022 Assessment & Plan (1) Ambulatory dysfunction: Plan: - Patient presenting from home with generalized weakness, fall. - Head CT, C-spine CT negative for acute findings. - History of advanced dementia - Tested positive for COVID-19 - no pulmonary concerns of pneumonia but likely contributing to his decreased PO intake leading to weakness - improved since IVF - Patient currently too weak to return home with . states that she is considering long-term placement. - PT/OT recommended inpatient therapy -Fall precaution (2) Dementia: Plan: - advanced stage - is primary caregiver who has MS - she feels she is not able to care for him at home any more and he becomes belligerent and aggressive with her at times and she sometimes feels for her physical safety - he is ambulatory at baseline and can get himself to the bathroom usually, per his - not oriented, mostly dependent on most ADLs - looking for LTC placement most likely - He has not had any aggressive behavior -Case management working on placement (3) COVID-19: Plan: - Saturating well on room air, no signs of pneumonia on CXR - No indication for COVID-19 directed therapies at this time -Repeat Covid 19 test positive - Continue to be asymptomatic -Clinically stable (4) History of CVA (cerebrovascular accident): Plan: - Continue ASA and statin (5) DVT prophylaxis: Plan: - SQ Lovenox Plan DNR/DNI Med/surg Disposition Waiting for placement Admission and Anticipated Discharge Date Admission Date: January 17, 2022 Subjective Patient was seen and examined for follow-up generalized weakness and COVID 19 Lying in bed comfortable with at bedside with sitting Patient has not any abnormal behavior or agitation Review of Systems Review of Systems: All systems reviewed & are unremarkable except as noted in Subjective Physical Exam Physical Exam: General- No acute distress, dementia Head- atraumatic Eyes- PERRL, EOMI, ENT- oropharynx clear Neck- supple, no JVD Lungs- clear to auscultation Heart- regular rhythm; no murmur Abdomen- normal bowel sounds, soft, nontender Extremities- no calf tenderness Neuro- EOMI; no facial palsy; no dysarthria, + abnormal speech (Mumbled, nonsensical speech) Skin- warm & dry Results & Data Results & Data ([facility]) Vital Signs (Past 12 Hours) Vital Signs Temp Pulse Pulse Resp BP Pulse Ox O2 Del Method 01/22/22 21:07 36.9 C 54 L 19 110/70 96 Room Air 01/22/22 16:26 36.7 C 64 18 128/62 96 Room Air
[2022-01-23] MEDS: INSULIN ASPART PER UNIT SC SCH ×2 (08:48→12:28)
[2022-01-23] MEDS: MEMANTINE HCL 10 MG TAB PO SCH (10:08)
[2022-01-23] MEDS: ASPIRIN 81 MG ECTAB PO SCH (10:08)
[2022-01-23] MEDS: SERTRALINE HCL 50 MG TABLET PO SCH (10:08)
--- NOTE | 2022-02-02 10:16 | Discharge Summary ---
Date of Service January 23, 2022 Admission HPI Per Admitting Provider 71-year-old male with PMH advanced dementia, history of CVA, HLD, and other problems listed below who presents the ED for evaluation of generalized weakness. Due to patient's advanced dementia, history is unobtainable from him. History is obtained from patient's at the bedside. A couple of days ago, while taking their dog for a walk, patient's noticed that he was shuffling his feet and leaning forward. Yesterday, patient was increasingly confused from his baseline. He had fallen out of bed overnight. Patient typically can walk unassisted. His speech is garbled and nonsensical at baseline. notes a mild cough and rhinorrhea since yesterday. No fever. No other symptoms reported. In the ED, patient tested positive for COVID-19. No signs of pneumonia on CXR and patient is saturating well on room air. Labs unremarkable. Patient is currently too weak to return home with his . Admission Exam Per Admitting Provider Constitutional: WD/WN, vitals as above Eyes: PERRL, conjunctivae normal, anicteric sclerae ENMT: external ear and nose normal, oropharynx normal Respiratory: normal respiratory effort, lungs clear to auscultation Cardiovascular: Rate/Rhythm: regular rate and regular rhythm Vessels: normal peripheral pulses Extremities: no edema Gastrointestinal (Abdomen): normal bowel sounds, soft, nontender, no hepatosplenomegaly Musculoskeletal: Extremities: no cyanosis and no clubbing Patient does not look commands in order to assess strength Skin: no rashes, warm and dry Neurologic: Speech / Cognition: + abnormal speech (Mumbled, nonsensical speech) Unable to complete neurologic exam due to underlying advanced dementia Psychiatric: Orientation: alert; + not oriented to person, + not oriented to place and + not oriented to time Principal Diagnosis Ambulatory dysfunction Dementia COVID-19 History of CVA (cerebrovascular accident): Discharge Exam General- No acute distress, dementia Head- atraumatic Eyes- PERRL, EOMI, ENT- oropharynx clear Neck- supple, no JVD Lungs- clear to auscultation Heart- regular rhythm; no murmur Abdomen- normal bowel sounds, soft, nontender Extremities- no calf tenderness Neuro- EOMI; no facial palsy; no dysarthria, + abnormal speech (Mumbled, nonsensical speech) Skin- warm & dry Discharge Data Allergies Allergy/AdvReac Type Severity Reaction Status Date / Time ampicillin Allergy Unknown colitis Verified 01/16/22 15:55 celecoxib Allergy Unknown RASH Verified 04/01/21 16:47 clindamycin Allergy Unknown colitis Verified 01/16/22 15:55 penicillin V Allergy Unknown COLITIS Verified 04/01/21 16:47 WITH ALL CILLINS Consultations 01/16/22 14:16 ED Decision to Admit Stat Ordered Studies 01/16/22 12:27 CT cervical spine wo con Stat CT head/brain wo con Stat CT head/brain wo con CLINICAL HISTORY: fall with pain COMPARISON STUDY: No previous studies for comparison. CT DOSE: 823.94 mGycm TECHNIQUE: Standard CT of the Brain was performed without IV contrast. A dose lowering technique was utilized adhering to the principles of ALARA. FINDINGS: Extraaxial space: There is no evidence for subdural hematoma. There are no extra-axial fluid collections. Ventricles and cisterns: The ventricles are mildly to moderately dilated bilaterally. There is no evidence for midline shift or mass effect. Parenchyma: There is no subarachnoid or intraparenchymal hemorrhage. There is no evidence for an acute infarct or cerebral edema. There is evidence for an old, sharply defined lacunar infarct within the basal ganglia on the left. There is mild cerebral cortical atrophy and decreased attenuation in the periventricular white matter representing remote small vessel disease. There are no gross mass lesions. Osseous structures: There is no evidence for an acute fracture. There is mild mucosal thickening involving the floor the right maxillary. The remaining visualized paranasal sinuses are clear. The mastoid air cells are clear bilaterally. Soft tissues: There is no evidence for focal soft tissue swelling. IMPRESSION: 1. No acute intracerebral pathology. 2. Old lacunar infarct within the basal ganglia on the left. 3. Mild cerebral cortical atrophy and remote small vessel disease. 4. Mild chronic right maxillary sinusitis ACT 112: Negative or not required by law. Electronically signed by: Gavino Keys M.D. 01/16/2022 1:32 PM Dictated:01/16/22 1330 Transcribed: 01/16/[address] cervical spine wo con CLINICAL HISTORY: fall TECHNIQUE: Multidetector row helical CT of the cervical spine was performed without administration of intravenous contrast. Coronal and sagittal reformations were obtained. Automated dose lowering techniques and/or adjustment according to patient size were utilized for this exam. Comparison: None available at the time of this dictation. FINDINGS: No acute fractures or subluxations are identified. Degenerative changes are seen in the visualized spine. The alignment is normal. Soft tissues are unremarkable. IMPRESSION: Degenerative changes without evidence of acute bony injury. ACT 112: Negative or not required by law. Electronically signed by: Giancarlo Cruz M.D. 01/16/2022 1:36 PM Dictated:01/16/22 1333 Transcribed: 01/16/22 1333 XR chest 1V portable CLINICAL HISTORY: weakness COMPARISON STUDY: Chest radiograph April 01, 2021. FINDINGS: Lung volumes are normal. Linear left basilar opacity reflects atelectasis. There is no pneumothorax or pleural effusion. Cardiac size is normal. Mediastinal contours are normal. There is no evidence for pulmonary edema. Old left-sided rib deformities are unchanged. IMPRESSION: No acute cardiopulmonary findings. ACT 112: Negative or not required by law. Electronically signed by: Jaxon Chavira M.D. 01/16/2022 12:37 PM Dictated:01/16/22 1236 Transcribed: 01/16/22 1236 Hospital Course (1) Ambulatory dysfunction: - Patient presenting from home with generalized weakness, fall. - Head CT, C-spine CT negative for acute findings. - History of advanced dementia - Tested positive for COVID-19 - no pulmonary concerns of pneumonia but likely contributing to his decreased PO intake leading to weakness - improved since IVF - Patient currently too weak to return home with . states that she is considering long-term placement. - PT/OT recommended inpatient therapy -Fall precaution (2) Dementia: - advanced stage - is primary caregiver who has MS - she feels she is not able to care for him at home any more and he becomes belligerent and aggressive with her at times and she sometimes feels for her physical safety - he is ambulatory at baseline and can get himself to the bathroom usually, per his - not oriented, mostly dependent on most ADLs - looking for LTC placement most likely - He has not had any aggressive behavior -Case management working on placement (3) COVID-19: - Saturating well on room air, no signs of pneumonia on CXR - No indication for COVID-19 directed therapies at this time -Repeat Covid 19 test positive - Continue to be asymptomatic -Clinically stable (4) History of CVA (cerebrovascular accident): - Continue ASA and statin (5) DVT prophylaxis: - SQ Lovenox Plan DNR/DNI Med/surg Disposition Waiting for placement Total Time Total Time Spent Total Time Spent (In Minutes): 35 minutes Discharge Plan Discharge Items Patient Disposition: Personal [facility] Reason For Visit: COVID+, AMBULATORY DYSFUNCTION Discharge Diagnosis: Ambulatory dysfunction Dementia COVID-19 History of CVA (cerebrovascular accident): Activity: Resume your previous activity Non-emergency contact: Primary Care Provider Call non-emergency contact if: you have any medication questions and your temperature is above 101 Follow-up/Referrals: Corby Cox, [Primary Care Provider] - Diet: Heart Healthy Addtl Attending Provider Instructions: Follow up with your primary care provider once discharge from [facility] Continue physical and occupational therapy Continue to practice social distance Continue to wear a mask Continue monitor for sign of shortness of breath Seek medical attention if develop any respiratory problem Fall precaution Home Isolation COVID-19 Instructions The following information about Home Isolation is from the CDC Website: https://www.cdc.gov/coronavirus/2019-ncov/hcp/svoyyvyh-tkyndnt-pchfow.html Stay home except to get medical care People who are mildly ill with COVID-19 are able to isolate at home during their illness. You should restrict activities outside your home, except for getting medical care. Do not go to work, school, or public areas. Avoid using public transportation, ride-sharing, or taxis. Separate yourself from other people and animals in your home People: As much as possible, you should stay in a specific room and away from other people in your home. Also, you should use a separate bathroom, if available. Animals: You should restrict contact with pets and other animals while you are sick with COVID-19, just like you would around other people. Although there have not been reports of pets or other animals becoming sick with COVID-19, it is still recommended that people sick with COVID-19 limit contact with animals until more information is known about the virus. When possible, have another member of your household care for your animals while you are sick. If you are sick with COVID-19, avoid contact with your pet, including petting, snuggling, being kissed or licked, and sharing food. If you must care for your pet or be around animals while you are sick, wash your hands before and after you interact with pets and wear a face mask. Call ahead before visiting your doctor If you have a medical appointment, call the healthcare provider and tell them that you have or may have COVID-19. This will help the healthcare providers office take steps to keep other people from getting infected or exposed. Wear a face mask You should wear a face mask when you are around other people (e.g., sharing a room or vehicle) or pets and before you enter a healthcare providers office. If you are not able to wear a face mask (for example, because it causes trouble breathing), then people who live with you should not stay in the same room with you, or they should wear a face mask if they enter your room. Cover your coughs and sneezes Cover your mouth and nose with a tissue when you cough or sneeze. Throw used tissues in a lined trash can. Immediately wash your hands with soap and water for at least 20 seconds or, if soap and water are not available, clean your hands with an alcohol-based hand sugar sampler that contains at least 60% alcohol. Clean your hands often Wash your hands often with soap and water for at least 20 seconds, especially after blowing your nose, coughing, or sneezing; going to the bathroom; and before eating or preparing food. If soap and water are not readily available, use an alcohol-based hand sugar sampler with at least 60% alcohol, covering all surfaces of your hands and rubbing them together until they feel dry. Soap and water are the best option if hands are visibly dirty. Avoid touching your eyes, nose, and mouth with unwashed hands. Avoid sharing personal household items You should not share dishes, drinking glasses, cups, eating utensils, towels, or bedding with other people or pets in your home. After using these items, they should be washed thoroughly with soap and water. Clean all high-touch surfaces everyday High touch surfaces include counters, tabletops, doorknobs, bathroom fixtures, toilets, phones, keyboards, tablets, and bedside tables. Also, clean any surfaces that may have blood, stool, or body fluids on them. Use a household cleaning spray or wipe, according to the label instructions. Labels contain instructions for safe and effective use of the cleaning product including precautions you should take when applying the product, such as wearing gloves and making sure you have good ventilation during use of the product. Monitor your symptoms Seek prompt medical attention if your illness is worsening (e.g., difficulty breathing).Beforeseeking care, call your healthcare provider and tell them that you have, or are being evaluated for, COVID-19. Put on a face mask before you enter the facility. These steps will help the healthcare providers office to keep other people in the office or waiting room from getting infected or exposed. Ask your healthcare provider to call the local or state health department. Persons who are placed under active monitoring or facilitated self- monitoring should follow instructions provided by their local health department or occupational health professionals, as appropriate. When working with your local health department check their available hours. If you have a medical emergency and need to call 911, notify the dispatch personnel that you have, or are being evaluated for COVID-19. If possible, put on a face mask before emergency medical services arrive. Discontinuing home isolation Patients with confirmed COVID-19 should remain under home isolation precautions until the risk of secondary transmission to others is thought to be low. The decision to discontinue home isolation precautions should be made on a [id number]-[id number] basis, in consultation with healthcare providers and state and local health departments. Coronavirus disease 2019 (COVID-19) is a virus that causes a respiratory illness. It is caused by a coronavirus called 2019 novel coronavirus (2019- nCoV). There are many types of coronavirus. Coronaviruses are a very common cause of bronchitis. They may sometimes cause lung infection(pneumonia). Symptoms can range from mild to severe respiratory illness. These viruses are also foundin some animals. COVID-19 was first found in people in [facility], in late 2019. In 2020, several cases of COVID-19 have been confirmed in the [place] Public health officials are working to find the source. How the virus spreads is not yet fully known. It may be spread through droplets of fluid that a person coughs or sneezes into the air. It may be spread if you touch a surface with virus on it, such as a handle or object, and then touch your mouth. What are the symptoms of COVID-19? Some people have no symptoms or mild symptoms. Symptoms may appear 2 to 14 days after contact with the virus. Symptoms can include: Fever Coughing Trouble breathing What are possible complications from COVID-19? In many cases, this virus can cause infection (pneumonia) in both lungs. In some cases, this can cause . How is COVID-19 diagnosed? Your healthcare provider will ask about your symptoms. He or she will also ask about your recent travel and contact with sick people. Testing for the virus is only done through the CDC. If yourhealthcare provider thinks you may have COVID- 19, he or she will work with your local health department and the CDC on testing. Follow all instructions from your healthcare provider. COVID-19 is diagnosed by: Nasal and throat swab. A cotton-tipped swab is wiped inside your nose or throat. This is done to check for viruses in your nasal mucus. Sputum culture. A small sample of mucus coughed from your lungs (sputum) is collected if you have a cough. It is checked for the virus. How is COVID-19 treated? There is currently no medicine to treat the virus. Treatment is done to help your body while it fights the virus. This is known as supportive care. Supportive care may include: Pain medicine. These include acetaminophen and ibuprofen. They are used to help ease pain and reduce fever. Bed rest. This helps your body fight the illness. For severe illness, you may need to stay in the hospital. Care during severe illness may include: IV (intravenous) fluids.These are given through a vein to help keep your body hydrated. Oxygen. Supplemental oxygen or ventilation with a breathing machine (ventilator) may be given. This is done to keep enough oxygen in your body. Are you at risk for COVID-19? If youve been to a place where people have been sick with this virus, you are at risk for infection. You are at risk if you: Recently traveled to an affected area Had contact with a sick person who recently traveled to this area Had contact with a person who was diagnosed with COVID-19 How can COVID-19 be prevented? There is no vaccine yet. The best prevention is to not have contact with the virus. The CDC advises that people should not travel to areas where there are COVID-19 outbreaks right now for any reason that is not urgent. To help prevent spreading the infection, wash your hands often, or use an alcohol-basedhand sugar sampler. If you are in an area with COVID-19: Wash your hands often. Or use an alcohol-based hand sugar sampler often. Only touch your eyes, nose, or mouth with clean hands. Dont have contact with people who are sick. Follow local instructions about being in public. For example, you may be told to not use public transport for a period of time. Stay away from markets that have live or animals. Wash your hands after touching any animals. Don't touch animals that may be sick. Dont share eating or drinking tools with sick people. Dont kiss someone who is sick. Clean surfaces often with disinfectant. If you were in an area with COVID-19 in the last 14 days: Call your healthcare provider. He or she can talk with local health staff to see what action may be needed. Follow all instructions from your provider. Take your temperature every morning and evening for at least 14 days. This is to check for fever. Keep a record of the readings. Keep watch for symptoms of the virus. Tell your provider right away if you have symptoms. If you were in an area with COVID-19 and have a fever or other symptoms: Dont panic. Keep in mind that other illnesses can cause similar symptoms. Stay away from work, school, and public places. Limit physical contact with family members. Don't kiss anyone or share eating or drinking utensils. Clean surfaces you touch with disinfectant. This is to help prevent the virus from spreading. Call your healthcare provider. Explain that you have been exposed to COVID-19 and have symptoms. Do this before going to any hospital. Wait for instructions. Keep in mind that healthcare staff may wear protective equipment such as masks, gowns, gloves, and eye protection. You may be put in a separate room. This is to prevent the possible virus from spreading. Tell the healthcare staff about recent travel. This includes local travel on public transport. Staff may need to find other people you have been in contact with. Follow all instructions the healthcare staff give you. If you have been diagnosed with COVID-19 Follow all instructions from your healthcare provider. Dont leave your home, except to get medical care. Call your healthcare providers office before going. They can prepare and give you instructions. This will help prevent the virus from spreading. Dont go to work, school, or public areas. Dont use public transport or taxis. Stay away from other people in your home. Have them wear face masks around you. Dont share household items or food. Wear a face mask if you can. This includes at home or in a medical facility. Cover your face with a tissue when you cough or sneeze. Throw the tissue away. Wash your hands. Wash your hands often. Caregivers should: Follow all instructions from healthcare staff. Wear a face mask and protective clothing as advised. Wash hands often. Keep track of the sick persons symptoms. Clean surfaces, fabrics, and laundry thoroughly. Keep other people away from the sick person. When to call your healthcare provider Call your healthcare provider: If youve recently traveled and have symptoms If you have been diagnosed with COVID-19 and your symptoms are worse To learn more To find out more about COVID-19, visit the CDC website at www.cdc.gov/coronavirus/2019-ncov/index.html. 6858-0527 [employer]. [address] [place] [address]. All rights reserved. This information is not intended as a substitute for professional medical care. Always follow your healthcare professional's instructions. This information has been adapted from [employer] Pending Studies at Discharge: No Stand-Alone Forms: My [employer], Smoking Cessation Skilled Items Patient informed of condition?: Yes DNR: Yes Discharge Level of Care: Skilled Communicable Disease: Yes Discharge Prognosis: Stable Lines: None Urinary Catheter: No Medications and DC Order Prescriptions: Continued aspirin 81 mg Tablet,Delayed Release (Dr/Ec) 81 mg PO Q OTHER DAY memantine 10 mg tablet 10 mg PO AMHS atorvastatin 40 mg tablet 40 mg PO QPM sertraline 50 mg tablet 50 mg PO DAILY Discharge Orders: Discharge Order (Routine); Ordered 01/23/22 Ordered By: Di Bray/Other Patient Handouts: Prediabetes Admission Data Admit Date/Time: 01/17/22 12:12 Attending Provider: Di Kaba Admit Provider: Juan Wilkinson Primary Care Provider: Corby Cox Other Providers: Juan Wilkinson ; Yoselin Glass at [facility] ; Cecil Song Other Interventions: Discharge Summary Assessment (RN) Last Done: 01/23/22 11:50
== END 2022-01-23 13:48 | disposition home or self-care (01) | DRG 178 ==
LOC: ED 11:39 → EDINP 11:39 → SUATTDRO 14:55 → 3W 17:40 → SUATTDRO 01-17 12:12
DX: Z79.82 Long term (current) use of aspirin; E78.00 Pure hypercholesterolemia, unspecified; Z88.0 Allergy status to penicillin; Z86.73 Personal history of transient ischemic attack (TIA), and cerebral infarction without residual deficits; U07.1 COVID-19; R26.89 Other abnormalities of gait and mobility; Z83.3 Family history of diabetes mellitus; Z88.8 Allergy status to other drugs, medicaments and biological substances; F03.91 Unspecified dementia, unspecified severity, with behavioral disturbance; Z66 Do not resuscitate; E86.0 Dehydration

== ENCOUNTER 2022-03-13 08:36 | Inpatient (IN) ==
[2022-03-13] MEDS ORDERED: LORazepam 2 MG/2 ML SYR IV STA ×2 (08:48→11:45)
[2022-03-13] MEDS ORDERED: levETIRAcetam 1,500 MG in 0.9 % SODIUM CHLORIDE 100 ML IV STA (08:48)
[2022-03-13] MEDS ORDERED: SODIUM CHLORIDE 0.9% 500 ML IV SCH (09:00)
[2022-03-13 09:03] LABS: Basophils # (auto) 0.05 K/uL (0-0.2); Basophils % (auto) 0.8 %; Eosinophils # (auto) 0.26 K/uL (0-0.50); Eosinophils % (auto) 4.3 %; Hematocrit (blood only) 42.9 % (40.1-51.0); Hemoglobin 14.8 g/dl (14.0-18.0); Immature Granulocytes # (auto) 0.01 K/uL (0.00-0.02); Immature Granulocytes % (auto) 0.2 %; Lymphocytes # (auto) 1.79 K/uL (1.2-3.4); Lymphocytes % (auto) 29.9 %; Mean Corpuscular Hemoglobin 31.8 pg (25.0-34.0); Mean Corpuscular Hgb Conc 34.5 g/dL (32.0-36.0); Mean Corpuscular Volume 92.1 fL (80.0-100.0); Mean Platelet Volume 9.6 fL (9.4-12.4); Monocytes # (auto) 0.59 K/uL (0.24-0.82); Monocytes % (auto) 9.9 %; Neutrophils # (auto) 3.28 K/uL (1.4-6.5); Neutrophils % (auto) 54.9 %; Platelet Count 179 K/uL (130-400); RDW Coefficient of Variation 12.9 % (11.5-14.5); RDW Standard Deviation 43.6 fL (36.4-46.3); Red Blood Count 4.66 M/uL (4.63-6.08); White Blood Count 5.98 K/ul (4.8-10.8)
--- NOTE | 2022-03-13 09:03 | Emergency Department Note ---
Impression & Plan Tachyarrhythmia, Fall, Seizure, CHI (closed head injury) ED Provider Note NAME: RACHAEL HOPSON AGE: 71 SEX: M : 1950 ARRIVES VIA: Ambulance INFORMANT: Patient, ED PROVIDER(S): Landen Davenport MD Chief Complaint: Seizure, fall HPI: Patient presents from [facility] due to concern for a history of dem entia associated with a fall this morning. Unsure as to whether not the fall because of seizure the seizure happened before the fall. Patient reportedly fell striking the back of his head. BSG was 123. Patient does have a known history of dementia and takes a baby aspirin. Patient sometimes does exhibit aggressive behavior but there were no issues for EMS in route. Patient was reported to have hematoma to the occiput. Patient reportedly had generalized tonic-clonic seizure-like activity for approximately 3 minutes in duration. No other reported symptoms or issues. No medications were given. Patient does not have a prior history of seizure. ROS: See HPI for pertinent positives and negatives. A total of 10 systems were reviewed and otherwise negative. Past medical history: See below Surgical history: See below Social history: See below Physical Exam: GENERAL: NAD, wearing a mask, non-toxic. EYE EXAM: Normal conjunctiva. PERRL, no anisocoria and EOM's grossly intact w/o pain. NECK: Supple, no nuchal rigidity, no adenopathy, non-tender. No signs of meningismus. FROM of the neck with good chin to chest and neck extension. No stridor. LUNGS: Clear to auscultation. Normal chest wall mechanics. HEART: NSR, no MRG. ABDOMEN: Abdomen soft, non-tender, normo-active bowel sounds, no masses, no rebound or guarding. BACK: No CVA TTP. SKIN: No rashes and no bruising. UPPER EXTREMITIES: Upper extremities are grossly normal. LOWER EXTREMITIES: Grossly normal, no edema. NEURO EXAM: Alert, occasionally follows commands,, cranial nerves II-XII grossly intact, normal speech, moves all 4 extremities. Differential diagnoses: Epilepsy, infection, hypoglycemia, electrolyte abnorm alities, cardiac sources, intracerebral event, trauma, toxicologic, neurologic, syncope, as well as other pathologies. Course: Patient was seen and evaluated the bedside. Full history physical exam was performed. EKG interpreted by Sinus with first-degree AV block, rate of 52, normal QRS and normal axis no obvious ST elevations. Repeat EKG interpreted by me Sinus bradycardia with first-degree AV block, rate of 52, prolonged SC normal QRS and axis no obvious ST elevations. No significant change from previous completed earlier today. Imaging Studies: See Below Cardiac monitoring: An order was placed for continuous cardiac monitoring. The monitor shows a rate of 65 with sinus rhythm. MDM: Patient was seen due to concern for seizure and head strike. Blood work was obtained along with an EKG. Patient was not very cooperative and thus was given a small amount of Ativan to help with facilitating blood work and obtaining CAT scans. The patient did have CT of the head and cervical spine completed. The patient was also ordered Keppra given the patient's concern for seizure. The patient's blood work showed a normal white count H&H and platelet count with normal kidney function and coags. Mild elevations in AST and ALT. Urinalysis with no evidence of obvious infection. COVID-negative. CT of his head with no ICH. There is a large posterior parietal scalp hematoma. The patient does not have any evidence of laceration that requires repair at this time. CT cervical spine negative. I did discuss the patient's case with on-call neurology Dr. Saenz who did not recommend continued antiepileptic medication for first-time possible seizure. Upon rediscussing the patient's plan of care with the power of criminal attorney which is the who was at bedside and the patient did have a tachyarrhythmia that was brief and self terminating. Patient did have pacer pads placed and we did discuss CODE STATUS. Patient is DNR/DNI. Patient was ordered magnesium and some Ativan. Patient was ordered additional IV fluids. Given the tachyarrhythmia this is a possible cause of the patient's possible seizure versus syncopal event. I did speak with the on-call hospitalist Edelmira almeida and the patient was admitted by Dr. Wilkinson. Past Med/Surg History Medical History Ambulatory dysfunction COVID-19 Dementia Fall High cholesterol History of CVA (cerebrovascular accident) HLD (hyperlipidemia) Seizure Senile degeneration of brain Surgical History History of knee joint replacement Family History Mother Diabetes Social History Smoking Status: Never smoker Hx Alcohol Use: No Hx Substance Use: No Preferred Language: Ukrainian Communication Ability: Impaired Psychiatric Clinician Required: No Beliefs That Will Affect Care: None marital status: Current Living Situation: Spouse Current Living Situation Comment: 1 story home with How many Children do You have: 2 Feels Safe at Home: Yes Assistive Devices: None Allergies Allergies Allergy/AdvReac Type Severity Reaction Status Date / Time ampicillin Allergy Unknown colitis Verified 01/16/22 15:55 celecoxib Allergy Unknown RASH Verified 04/01/21 16:47 clindamycin Allergy Unknown colitis Verified 01/16/22 15:55 penicillin V Allergy Unknown COLITIS Verified 04/01/21 16:47 WITH ALL CILLINS Home Meds Home Medications Medication Instructions Recorded Confirmed atorvastatin 40 mg tablet 40 mg PO QPM 04/01/21 03/13/22 memantine 10 mg tablet 10 mg PO AMHS 04/01/21 03/13/22 sertraline 50 mg tablet 50 mg PO DAILY 04/01/21 03/13/22 aspirin 81 mg tablet,delayed 81 mg PO Q OTHER DAY 01/16/22 03/13/22 release Results & Data (ED) Vital Signs Vital Signs - 24 hr 03/13/22 08:40 03/13/22 09:30 03/13/22 11:12 Temperature 36.5 C Temperature Source Oral Pulse Rate 60 Pulse Rate [Left Finger] 97 H Pulse Rate from SpO2 Sensor Pulse Rhythm Regular Pulse Rhythm [Left Finger] Pulse Strength Normal Pulse Strength [Left Finger] Respiratory Rate 22 16 Respiratory Effort / Characteristics Non-Labored Spontaneous Respiratory Depth Normal Respiratory Pattern Regular Blood Pressure 134/76 Blood Pressure [Right Arm] 147/90 H Blood Pressure Mean 95 Blood Pressure Mean [Right Arm] 109 Blood Pressure Position Sitting Pulse Oximetry 98 98 97 Oxygen Delivery Method Room Air Room Air Room Air Sepsis Recent Fever Within 48 Hours No Sepsis New/Unexplained Change in Mental Status No Sepsis Action Taken by Nursing No Action Required 03/13/22 11:12 03/13/22 11:12 03/13/22 08:43 Temperature Temperature Source Pulse Rate 49 L 76 Pulse Rate [Left Finger] 49 L Pulse Rate from SpO2 Sensor Pulse Rhythm Regular Pulse Rhythm [Left Finger] Regular Pulse Strength Pulse Strength [Left Finger] Normal Respiratory Rate 20 16 20 Respiratory Effort / Characteristics Non-Labored Respiratory Depth Normal Respiratory Pattern Blood Pressure Blood Pressure [Right Arm] 143/91 H Blood Pressure Mean Blood Pressure Mean [Right Arm] 108 Blood Pressure Position Pulse Oximetry 95 95 Oxygen Delivery Method Room Air Room Air Sepsis Recent Fever Within 48 Hours Sepsis New/Unexplained Change in Mental Status Sepsis Action Taken by Nursing 03/13/22 09:00 03/13/22 09:28 03/13/22 09:59 Temperature Temperature Source Pulse Rate 69 Pulse Rate [Left Finger] Pulse Rate from SpO2 Sensor Pulse Rhythm Pulse Rhythm [Left Finger] Pulse Strength Pulse Strength [Left Finger] Respiratory Rate 20 Respiratory Effort / Characteristics Respiratory Depth Respiratory Pattern Blood Pressure 147/90 H Blood Pressure [Right Arm] Blood Pressure Mean 109 Blood Pressure Mean [Right Arm] Blood Pressure Position Pulse Oximetry Oxygen Delivery Method Sepsis Recent Fever Within 48 Hours Sepsis New/Unexplained Change in Mental Status Sepsis Action Taken by Nursing 03/13/22 10:02 03/13/22 11:09 03/13/22 11:10 Temperature Temperature Source Pulse Rate 56 L 50 L Pulse Rate [Left Finger] Pulse Rate from SpO2 Sensor 59 L Pulse Rhythm Pulse Rhythm [Left Finger] Pulse Strength Pulse Strength [Left Finger] Respiratory Rate 11 L 19 Respiratory Effort / Characteristics Respiratory Depth Respiratory Pattern Blood Pressure Blood Pressure [Right Arm] Blood Pressure Mean Blood Pressure Mean [Right Arm] Blood Pressure Position Pulse Oximetry 97 Oxygen Delivery Method Sepsis Recent Fever Within 48 Hours Sepsis New/Unexplained Change in Mental Status Sepsis Action Taken by Nursing 03/13/22 11:10 03/13/22 11:41 03/13/22 11:41 Temperature Temperature Source Pulse Rate 61 Pulse Rate [Left Finger] Pulse Rate from SpO2 Sensor Pulse Rhythm Pulse Rhythm [Left Finger] Pulse Strength Pulse Strength [Left Finger] Respiratory Rate 21 Respiratory Effort / Characteristics Respiratory Depth Respiratory Pattern Blood Pressure 143/91 H 149/89 H Blood Pressure [Right Arm] Blood Pressure Mean 108 109 Blood Pressure Mean [Right Arm] Blood Pressure Position Pulse Oximetry Oxygen Delivery Method Sepsis Recent Fever Within 48 Hours Sepsis New/Unexplained Change in Mental Status Sepsis Action Taken by [facility] Medications Current Medication List: was personally reviewed by me Laboratory Data Attestation: I reviewed the patient's lab results. Result diagrams: 03/13/22 08:49 03/13/22 08:49 Lab Results 03/13/22 03/13/22 03/13/22 Range/Units 08:49 08:49 08:49 WBC 5.98 (4.8-10.8) K/ul RBC 4.66 (4.63-6.08) M/uL Hgb 14.8 (14.0-18.0) g/dl Hct 42.9 (40.1-51.0) % MCV 92.1 (80.0-100.0) fL MCH 31.8 (25.0-34.0) pg MCHC 34.5 (32.0-36.0) g/dL RDW Std Deviation 43.6 (36.4-46.3) fL RDW Coeff of Celeste 12.9 (11.5-14.5) % Plt Count 179 (130-400) K/uL MPV 9.6 (9.4-12.4) fL Immature Gran % (Auto) 0.2 % Neut % (Auto) 54.9 % Lymph % (Auto) 29.9 % Durham % (Auto) 9.9 % Eos % (Auto) 4.3 % Baso % (Auto) 0.8 % Neut # (Auto) 3.28 (1.4-6.5) K/uL Lymph # (Auto) 1.79 (1.2-3.4) K/uL Durham # (Auto) 0.59 (0.24-0.82) K/uL Eos # (Auto) 0.26 (0-0.50) K/uL Baso # (Auto) 0.05 (0-0.2) K/uL Immature Gran # (Auto) 0.01 (0.00-0.02) K/uL PT (9.0-12.0) Seconds INR (0.9-1.1) APTT (21.0-31.0) Seconds PTT Ratio Sodium 139 (136-145) mmol/L Potassium 4.5 (3.5-5.1) mmol/L Chloride 105 (98-107) mmol/L Carbon Dioxide 26 (21-32) mmol/L Anion Gap 8 (3-11) BUN 11 (6-23) mg/dl Creatinine 0.91 (0.6-1.4) mg/dl Est Cr Clr Drug Dosing 80.9 ml/min Est GFR ( Amer) 99.3 ml/min Est GFR (Non-Af Amer) 85.7 ml/min BUN/Creatinine Ratio 12.1 (10-20) Glucose 145 H (70-99(Fasting)) mg/dl Calcium 8.8 (8.5-10.1) mg/dl Phosphorus (2.5-4.9) mg/dl Magnesium 2.1 (1.7-2.4) mg/dl Total Bilirubin 0.7 (0.2-1.0) mg/dl AST 43 H (13-39) U/L ALT 60 H (7-52) U/L Alkaline Phosphatase 80 (34-104) U/L Troponin I High Sens 4.9 D (0-20) pg/ml Total Protein 5.7 L (6.0-8.3) gm/dl Albumin 3.5 (3.4-5.0) gm/dl Globulin 2.2 L (2.5-4.0) gm/dl Albumin/Globulin Ratio 1.6 (0.9-2) TSH 6.488 H (0.300-4.500) uIu/ml Free T4 0.63 (0.61-1.60) ng/dl Urine Color Urine Appearance (Clear) Urine pH (4.5-7.5) Ur Specific Cardinal (1.000-1.030) Urine Protein (Negative) Urine Glucose (UA) (Negative) Urine Ketones (Negative) Urine Blood (Negative) Urine Nitrite (Negative) Urine Bilirubin (Negative) Urine Urobilinogen (Negative) Ur Leukocyte Esterase (Negative) SARS-CoV-2, RNA, NAAT (NEGATIVE) 03/13/22 03/13/22 03/13/22 Range/Units 08:49 09:36 10:18 WBC (4.8-10.8) K/ul RBC (4.63-6.08) M/uL Hgb (14.0-18.0) g/dl Hct (40.1-51.0) % MCV (80.0-100.0) fL MCH (25.0-34.0) pg MCHC (32.0-36.0) g/dL RDW Std Deviation (36.4-46.3) fL RDW Coeff of Celeste (11.5-14.5) % Plt Count (130-400) K/uL MPV (9.4-12.4) fL Immature Gran % (Auto) % Neut % (Auto) % Lymph % (Auto) % Durham % (Auto) % Eos % (Auto) % Baso % (Auto) % Neut # (Auto) (1.4-6.5) K/uL Lymph # (Auto) (1.2-3.4) K/uL Durham # (Auto) (0.24-0.82) K/uL Eos # (Auto) (0-0.50) K/uL Baso # (Auto) (0-0.2) K/uL Immature Gran # (Auto) (0.00-0.02) K/uL PT 11.1 (9.0-12.0) Seconds INR 1.0 (0.9-1.1) APTT 24.6 (21.0-31.0) Seconds PTT Ratio 0.9 Sodium (136-145) mmol/L Potassium (3.5-5.1) mmol/L Chloride (98-107) mmol/L Carbon Dioxide (21-32) mmol/L Anion Gap (3-11) BUN (6-23) mg/dl Creatinine (0.6-1.4) mg/dl Est Cr Clr Drug Dosing ml/min Est GFR ( Amer) ml/min Est GFR (Non-Af Amer) ml/min BUN/Creatinine Ratio (10-20) Glucose (70-99(Fasting)) mg/dl Calcium (8.5-10.1) mg/dl Phosphorus 2.9 (2.5-4.9) mg/dl Magnesium (1.7-2.4) mg/dl Total Bilirubin (0.2-1.0) mg/dl AST (13-39) U/L ALT (7-52) U/L Alkaline Phosphatase (34-104) U/L Troponin I High Sens (0-20) pg/ml Total Protein (6.0-8.3) gm/dl Albumin (3.4-5.0) gm/dl Globulin (2.5-4.0) gm/dl Albumin/Globulin Ratio (0.9-2) TSH (0.300-4.500) uIu/ml Free T4 (0.61-1.60) ng/dl Urine Color Yellow Urine Appearance Clear (Clear) Urine pH 8.5 H (4.5-7.5) Ur Specific Cardinal 1.013 (1.000-1.030) Urine Protein Negative (Negative) Urine Glucose (UA) Negative (Negative) Urine Ketones Negative (Negative) Urine Blood Negative (Negative) Urine Nitrite Negative (Negative) Urine Bilirubin Negative (Negative) Urine Urobilinogen Negative (Negative) Ur Leukocyte Esterase Negative (Negative) SARS-CoV-2, RNA, NAAT (NEGATIVE) 03/13/22 Range/Units 11:40 WBC (4.8-10.8) K/ul RBC (4.63-6.08) M/uL Hgb (14.0-18.0) g/dl Hct (40.1-51.0) % MCV (80.0-100.0) fL MCH (25.0-34.0) pg MCHC (32.0-36.0) g/dL RDW Std Deviation (36.4-46.3) fL RDW Coeff of Celeste (11.5-14.5) % Plt Count (130-400) K/uL MPV (9.4-12.4) fL Immature Gran % (Auto) % Neut % (Auto) % Lymph % (Auto) % Durham % (Auto) % Eos % (Auto) % Baso % (Auto) % Neut # (Auto) (1.4-6.5) K/uL Lymph # (Auto) (1.2-3.4) K/uL Durham # (Auto) (0.24-0.82) K/uL Eos # (Auto) (0-0.50) K/uL Baso # (Auto) (0-0.2) K/uL Immature Gran # (Auto) (0.00-0.02) K/uL PT (9.0-12.0) Seconds INR (0.9-1.1) APTT (21.0-31.0) Seconds PTT Ratio Sodium (136-145) mmol/L Potassium (3.5-5.1) mmol/L Chloride (98-107) mmol/L Carbon Dioxide (21-32) mmol/L Anion Gap (3-11) BUN (6-23) mg/dl Creatinine (0.6-1.4) mg/dl Est Cr Clr Drug Dosing ml/min Est GFR ( Amer) ml/min Est GFR (Non-Af Amer) ml/min BUN/Creatinine Ratio (10-20) Glucose (70-99(Fasting)) mg/dl Calcium (8.5-10.1) mg/dl Phosphorus (2.5-4.9) mg/dl Magnesium (1.7-2.4) mg/dl Total Bilirubin (0.2-1.0) mg/dl AST (13-39) U/L ALT (7-52) U/L Alkaline Phosphatase (34-104) U/L Troponin I High Sens (0-20) pg/ml Total Protein (6.0-8.3) gm/dl Albumin (3.4-5.0) gm/dl Globulin (2.5-4.0) gm/dl Albumin/Globulin Ratio (0.9-2) TSH (0.300-4.500) uIu/ml Free T4 (0.61-1.60) ng/dl Urine Color Urine Appearance (Clear) Urine pH (4.5-7.5) Ur Specific Cardinal (1.000-1.030) Urine Protein (Negative) Urine Glucose (UA) (Negative) Urine Ketones (Negative) Urine Blood (Negative) Urine Nitrite (Negative) Urine Bilirubin (Negative) Urine Urobilinogen (Negative) Ur Leukocyte Esterase (Negative) SARS-CoV-2, RNA, NAAT NEGATIVE (NEGATIVE) Administered Medications Discontinued Medications Sodium Chloride (Nss) 500 mls @ 999 mls/hr IV .Q31M [facility] Stop: 03/13/22 09:30 Last Infusion: 03/13/22 09:33 Dose: 0 mls/hr Documented By: Admin: 03/13/22 09:02 Dose: 999 mls/hr Documented By: YOGESH Levetiracetam 1,500 mg/ Sodium (Chloride) 115 mls @ 440 mls/hr IV NOW STA Stop: 03/13/22 09:02 Last Infusion: 03/13/22 09:43 Dose: 0 mls/hr Documented By: Admin: 03/13/22 09:27 Dose: 440 mls/hr Documented By: YOGESH Sodium Chloride (Nss 1000ml) 1,000 mls @ 999 mls/hr IV .Q1H1M ONE Stop: 03/13/22 12:45 Last Infusion: 03/13/22 13:27 Dose: 0 mls/hr Documented By: Admin: 03/13/22 11:50 Dose: 999 mls/hr Documented By: BOLIVAR Magnesium Sulfate/Dextrose (Magnesium Sulfate / D5w) 1 gm in 100 mls @ 100 mls/hr IV NOW STA Stop: 03/13/22 12:56 Last Infusion: 03/13/22 13:27 Dose: 0 mls/hr Documented By: Admin: 03/13/22 12:07 Dose: 100 mls/hr Documented By: BOLIVAR Lorazepam (Lorazepam 2 Mg/2 Ml Syr) 0.5 mg IV NOW STA; Protocol Stop: 03/13/22 08:49 Last Admin: 03/13/22 09:02 Dose: 0.5 mg Documented By: YOGESH Lorazepam (Lorazepam 2 Mg/2 Ml Syr) Confirm Administered Dose 2 mg .ROUTE .STK- MED ONE Stop: 03/13/22 11:43 Last Admin: 03/13/22 11:50 Dose: Not Given Documented By: BOLIVAR Lorazepam (Lorazepam 2 Mg/2 Ml Syr) 0.5 mg IV NOW STA; Protocol Stop: 03/13/22 11:46 Last Admin: 03/13/22 11:49 Dose: 0.5 mg Documented By: BOLIVAR Imaging Data Radiologist's Impression: Cervical Spine CT 03/13/22 08:[address] DOSE: 1027.79 mGy.cm HISTORY: Closed head injury., occipital head strike, seizure TECHNIQUE: Multiaxial CT images of the cervical spine were performed and reformatted in the sagittal and coronal plane without the use of contrast. A dose lowering technique was utilized adhering to the principles of ALARA. COMPARISON: Cervical spine CT 01/16/2022. FINDINGS: No fractures. No subluxation. Prevertebral soft tissues and the C1-C2 interval are intact. No pneumothorax. The left C2-C3 facets are fused. Moderate disc space narrowing from C3 through C5. Severe disc space narrowing from C5 through C7. IMPRESSION: No fractures within the cervical spine. ACT 112: Negative or not required by law. Electronically signed by: Mainor Angeles M.D. 03/13/2022 10:[address] 03/13/22 08:49 CT SCAN OF THE BRAIN WITHOUT IV CONTRAST CLINICAL HISTORY: Head injury. Seizure. COMPARISON STUDY: CT of the brain dated 01/16/2022. TECHNIQUE: Unenhanced axial CT scan of the brain is performed from the vertex to the skull base. A dose lowering technique was utilized adhering to the principles of ALARA. FINDINGS: Brain parenchyma: There is age-related involutional change noting mild subcortical and periventricular microangiopathic disease. There is no hemorrhage, mass effect, or evidence of acute territorial ischemia by CT criteria. Chronic lacunar infarcts are noted in the left thalamus and the left basal ganglia. Looney-white matter differentiation is preserved. No extra-axial fluid collection is seen. Ventricles, sulci, cisterns: Prominent secondary to involutional change. Intracranial vasculature: There is atherosclerotic calcification of the cavernous carotid and vertebral arteries. Calvarium: The skeletal structures are osteopenic. No depressed calvarial fracture is seen. Soft tissues: There is a large posterior parietal scalp hematoma. Sinuses and mastoids: There is mild mucosal thickening within the right maxillary antrum. Trace mucosal thickening is seen in the ethmoid sinuses. The mastoid air cells are well pneumatized. Orbits: The bony orbits are grossly intact. IMPRESSION: 1 There is no hemorrhage, mass effect, or evidence of acute territorial ischemia by CT criteria. 2. Large posterior parietal scalp hematoma. ACT 112: Negative or not required by law. Electronically signed by: Wil Hernandez M.D. 03/13/2022 10:17 AM Discharge Plan Visit Data Chief Complaint: Seizure ED Provider: Landen Davenport Discharge Problem: Tachyarrhythmia, Fall, Seizure, CHI (closed head injury) Patient Disposition: Admitted As Inpatient Discharge Instructions Interventions: ED Discharge Assessment Last Done: 03/13/22 14:37
[2022-03-13 09:28] LABS: Albumin Globulin Ratio 1.6 (0.9-2); Albumin Level 3.5 gm/dl (3.4-5.0); BUN Creatinine Ratio 12.1 (10-20); Bilirubin,Total 0.7 mg/dl (0.2-1.0); Calcium 8.8 mg/dl (8.5-10.1); Creatinine Clr Calc Pharmacy 80.9 ml/min; Est GFR (African American) 99.3 ml/min; Est GFR (Non-African American) 85.7 ml/min; Globulin 2.2 gm/dl (2.5-4.0); Magnesium 2.1 mg/dl (1.7-2.4); Potassium 4.5 mmol/L (3.5-5.1); Total Protein 5.7 gm/dl (6.0-8.3)
[2022-03-13 09:29] LABS: Troponin I High Sensitivity 4.9 pg/ml (0-20)
[2022-03-13 09:38] LABS: Thyroid Stimulating Hormone 6.488 uIu/ml (0.300-4.500)
[2022-03-13 10:01] LABS: Partial Thromboplastin Ratio 0.9; Partial Thromboplastin Time 24.6 Seconds (21.0-31.0); Prothrombin Time 11.1 Seconds (9.0-12.0)
--- NOTE | 2022-03-13 10:18 | CT Scan Report ---
CT SCAN OF THE BRAIN WITHOUT IV CONTRAST CLINICAL HISTORY: Head injury. Seizure. COMPARISON STUDY: CT of the brain dated 01/16/2022. TECHNIQUE: Unenhanced axial CT scan of the brain is performed from the vertex to the skull base. A do se lowering technique was utilized adhering to the principles of ALARA. FINDINGS: Brain parenchyma: There is age-related involutional change noting mild subcortical and periventricula r microangiopathic disease. There is no hemorrhage, mass effect, or evidence of acute territorial isc hemia by CT criteria. Chronic lacunar infarcts are noted in the left thalamus and the left basal gang yosi. Looney-white matter differentiation is preserved. No extra-axial fluid collection is seen. Ventricles, sulci, cisterns: Prominent secondary to involutional change. Intracranial vasculature: There is atherosclerotic calcification of the cavernous carotid and vertebr al arteries. Calvarium: The skeletal structures are osteopenic. No depressed calvarial fracture is seen. Soft tissues: There is a large posterior parietal scalp hematoma. Sinuses and mastoids: There is mild mucosal thickening within the right maxillary antrum. Trace mucos al thickening is seen in the ethmoid sinuses. The mastoid air cells are well pneumatized. Orbits: The bony orbits are grossly intact. IMPRESSION: 1 There is no hemorrhage, mass effect, or evidence of acute territorial ischemia by CT criteria. 2. Large posterior parietal scalp hematoma. ACT 112: Negative or not required by law. Electronically signed by: Wil Hernandez M.D. 03/13/2022 10:17 AM
--- NOTE | 2022-03-13 10:18 | CT Scan Report ---
CERVICAL SPINE CT CT DOSE: 1027.79 mGy.cm HISTORY: Closed head injury., occipital head strike, seizure TECHNIQUE: Multiaxial CT images of the cervical spine were performed and reformatted in the sagittal and coronal plane without the use of contrast. A dose lowering technique was utilized adhering to th e principles of ALARA. COMPARISON: Cervical spine CT 01/16/2022. FINDINGS: No fractures. No subluxation. Prevertebral soft tissues and the C1-C2 interval are intact. No pneumothorax. The left C2-C3 facets are fused. Moderate disc space narrowing from C3 through C5. S evere disc space narrowing from C5 through C7. IMPRESSION: No fractures within the cervical spine. ACT 112: Negative or not required by law. Electronically signed by: Mainor Angeles M.D. 03/13/2022 10:17 AM
[2022-03-13 10:29] LABS: T4 Free Thyroxine 0.63 ng/dl (0.61-1.60)
[2022-03-13 10:45] LABS: Appearance Urine Clear (Clear); Bilirubin Urine Negative (Negative); Blood Urine Negative (Negative); Color Urine Yellow; Glucose Urine UA Negative (Negative); Ketones Urine Negative (Negative); Leukocyte Esterase Urine Negative (Negative); Nitrite Urine Negative (Negative); Protein Urine Negative (Negative); Specific Gravity Urine 1.013 (1.000-1.030); Urobilinogen Urine Negative (Negative); pH Urine 8.5 (4.5-7.5)
[2022-03-13] MEDS ORDERED: LORazepam 2 MG/2 ML SYR ONE (11:42)
[2022-03-13] MEDS ORDERED: SODIUM CHLORIDE 0.9% 1000ML 1,000 ML IV ONE (11:45)
--- NOTE | 2022-03-13 11:54 | History & Physical Report ---
Date of Service March 13, 2022 Assessment & Plan (1) Fall: (2) Seizure: (3) Senile degeneration of brain: (4) HLD (hyperlipidemia): Plan Mr. Rice is a 71 year old male who presented to the [facility] from [facility] s/p fall and a reported tonic-clonic seizure that lasted about 3 minutes. The patient has a PMH that includes: Advanced Alzheimer's dementia with behavioral disturbance, H/O CVA, HLD. Received Keppra once for empiric dosing. I talked with Dr. Saenz with Neurology and he stated we could do an EEG. 30 beat run of monomorphic VT and spontaneously returned to NSR. Per family, conservative approach to care. DNR/DNI in the event of cardiac or respiratory arrest, and confirmed no synchronized cardioversion or defibrillation. Will provide a POLST form to the family as discussed on the phone for them to complete (for future). Patient was lying in his hospital bed, but did become agitated with my physical exam. Fall: Seizure: Witnessed approx. 3 min tonic-clonic seizure after a fall where he hit the back of his head; no meds given in route Keppra given empirically and ED doc discussed with oncall Neurology; Dr. Saenz. No official neuro consult unless subsequent events Discussed with Dr. Saenz; hold on consult unless further seizure or family decides they would like EEG Cervical Spine CT: negative Head CT: small occipital hematoma Recently started on Olanzapine for behavior disturbance r/t dementia as outlined below - adverse affects include fall; benefits vs risk discussed with family. QTC: 446 Arrhythmia: Ventricular Tachycardia with pulse: Patient experienced 30 beat run of monomorphic VT in the ED; no chemical or mechanical intervention performed and family wishes for no cardioversion Will obtain ECHO as cleared by family Mg+ 2.1--> 1 G admin in ED; trend in AM Troponin 4.9; while negative will trend LFT's slightly elevated AST 43; ALT 60; will recheck in AM Alzheimer's Dementia with behavioral disturbance: Behavioral disturbance; diagnosed 7 years ago. Pt relies on staff to anticipate and meet most of his ADL needs; still ambulatory with walker independently. No recent falls. One fall noted when patient had covid. Was recently started on Olanzapine for behavioral disturbance; discussed benefit vs risk for this patient; will continue as observed benefit FAST score- up to 6C Palliative Performance Scale - 40-50% HLD: Stable; takes atorvastatin Disposition: PCP: Dr. Cox Code: DNR/DNI VTE Prophylaxis: SCDs. Consider chemoprophylaxis if patient is not discharged tomorrow. Patient currently a resident at [facility] but family was in process of transitioning to [facility]. Will pass along to Case Management to facilitate and look into this further I personally was able to review all current laboratory work and diagnostic images obtained in the ED. Additionally, I was able to review the patients past medication reconciliation and history with direct visualization in the patients chart. Discussed pt and plan of care with Dr. Wilkinson. History of Present Illness Chief Complaint: fall/seizure Primary Care Provider: Corby Cox DO Mr. Rice is a 71 year old male who presented to the [facility] from [facility] s/p fall and a reported tonic-clonic seizure that lasted about 3 minutes. The patient did hit his head when he fell. The patient has a PMH that includes: advanced alzheimer's dementia with behavioral disturbance, H/O CVA, HLD. Due to patient's advanced dementia, history is unobtainable from him. History is obtained from patient's Amairani. The patient does not have a history of seizures and has not had one before. I was able to meet with the patients , Amairani, at the bedside and also was able to facetime with the patients DIL Rosalinda who is a Pharmacist. At baseline, the patient is ambulatory with his walker, is able to eat independently, requires prompting for the bathroom and needs assistance with bathing and dressing. She has a baby monitor in his room at [facility] and she noticed him getting up with his walker in no apparent distress and he walked into the hallway. It is unclear whether he had a seizure and then a fall or had a fall and then a seizure. In the ED, he received Keppra once for empiric dosing. I talked with Dr. Saenz with Neurology and he stated we could do an EEG. Additionally, in the ED the patient experienced a 30 beat run of monomorphic VT and spontaneously returned to NSR. Plan of care was discussed with family and they would like to have a more conservative approach to his care. The decision was made to continue monitoring with electrolyte replacement as necessary, obtain an ECHO, continue to determine underlying causes of his arrhythmia and seizure with a goal to return to his SNF. The pt stated that she is in the process of having him transferred from [facility] to [facility]. Confirmed pt to be a DNR/DNI in the event of cardiac or respiratory arrest, and confirmed no synchronized cardioversion or defibrillation. Will provide a POLST form to the family as discussed on the phone for them to complete (for future). Patient was lying in his hospital bed, but did become agitated with my physical exam. Patient became further agitated and was able to urinate in the urinal. Per patients , he appears to be neurologically at baseline. Please see A/P for further details. Allergies Allergy/AdvReac Type Severity Reaction Status Date / Time ampicillin Allergy Unknown colitis Verified 01/16/22 15:55 celecoxib Allergy Unknown RASH Verified 04/01/21 16:47 clindamycin Allergy Unknown colitis Verified 01/16/22 15:55 penicillin V Allergy Unknown COLITIS Verified 04/01/21 16:47 WITH ALL CILLINS Home Medications Medication Instructions Recorded Confirmed Type atorvastatin 40 mg tablet 40 mg PO QPM 04/01/21 03/13/22 History memantine 10 mg tablet 10 mg PO AMHS 04/01/21 03/13/22 History sertraline 50 mg tablet 50 mg PO DAILY 04/01/21 03/13/22 History aspirin 81 mg tablet,delayed 81 mg PO Q OTHER DAY 01/16/22 03/13/22 History release Past Med/Surg History Medical History Ambulatory dysfunction COVID-19 Dementia Fall High cholesterol History of CVA (cerebrovascular accident) HLD (hyperlipidemia) Seizure Senile degeneration of brain Surgical History History of knee joint replacement Family History Mother Diabetes Social History Smoking Status: Unknown if ever smoked Hx Alcohol Use: No Hx Substance Use: No Preferred Language: Dominican Communication Ability: Impaired Shingler Required: No Beliefs That Will Affect Care: None marital status: Current Living Situation: Spouse Current Living Situation Comment: 1 story home with How many Children do You have: 2 Feels Safe at Home: Yes Assistive Devices: None Review of Systems Review of Systems: Unobtainable due to cognitive status (advanced dementia) Physical Exam Physical Exam: Neuro: AAOx1, PERRLA, unable to assess CN due to irritiability HEENT: head normocephalic, moist mucus membranes. posterior scalp hematoma with some bleeding noted. CV: S1/S2, (-) M/G/R, (-) edema, cap refill < 3 seconds Resp: Lungs CTA anteriorly. Pt refused to allow posterior auscultation. On RA GI: Abdomen S/NT/ND, Ax4 bowel sounds Musculoskeletal: 5/5 B/L UE strength, 5/5 B/L LE strength; uses walker to ambulate. Follows some commands. Skin: (-) rashes , (-) erythema. Psych: agitated and demented mood Results & Data Results & Data ([facility]) Vital Signs (Past 12 Hours) Vital Signs Temp Pulse Pulse Resp BP BP Pulse Ox 03/13/22 11:12 49 L 16 143/91 H 95 03/13/22 11:12 49 L 20 95 03/13/22 11:12 97 03/13/22 09:30 97 H 16 147/90 H 98 03/13/22 08:40 36.5 C 60 22 134/76 98 O2 Del Method 03/13/22 11:12 Room Air 03/13/22 11:12 Room Air 03/13/22 11:12 Room Air 03/13/22 09:30 Room Air 03/13/22 08:40 Room Air Laboratory Results Short CBC 03/13/22 Range/Units 08:49 WBC 5.98 (4.8-10.8) K/ul Hgb 14.8 (14.0-18.0) g/dl Hct 42.9 (40.1-51.0) % Plt Count 179 (130-400) K/uL BMP 03/13/22 08:49 Sodium 139 Potassium 4.5 Chloride 105 Carbon Dioxide 26 BUN 11 Creatinine 0.91 Glucose 145 H Calcium 8.8 Liver Function 03/13/22 Range/Units 08:49 Total Bilirubin 0.7 (0.2-1.0) mg/dl AST 43 H (13-39) U/L ALT 60 H (7-52) U/L Alkaline Phosphatase 80 (34-104) U/L Albumin 3.5 (3.4-5.0) gm/dl Urine 03/13/22 Range/Units 10:18 Urine Color Yellow Urine Appearance Clear (Clear) Urine pH 8.5 H (4.5-7.5) Ur Specific [place] 1.013 (1.000-1.030) Urine Protein Negative (Negative) Urine Glucose (UA) Negative (Negative) Diagnostic Findings Cervical Spine CT 03/13/22 08:[address] DOSE: 1027.79 mGy.cm HISTORY: Closed head injury., occipital head strike, seizure TECHNIQUE: Multiaxial CT images of the cervical spine were performed and reformatted in the sagittal and coronal plane without the use of contrast. A dose lowering technique was utilized adhering to the principles of ALARA. COMPARISON: Cervical spine CT 01/16/2022. FINDINGS: No fractures. No subluxation. Prevertebral soft tissues and the C1-C2 interval are intact. No pneumothorax. The left C2-C3 facets are fused. Moderate disc space narrowing from C3 through C5. Severe disc space narrowing from C5 through C7. IMPRESSION: No fractures within the cervical spine. ACT 112: Negative or not required by law. Electronically signed by: Mainor Angeles M.D. 03/13/2022 10:[address] 03/13/22 08:49 CT SCAN OF THE BRAIN WITHOUT IV CONTRAST CLINICAL HISTORY: Head injury. Seizure. COMPARISON STUDY: CT of the brain dated 01/16/2022. TECHNIQUE: Unenhanced axial CT scan of the brain is performed from the vertex to the skull base. A dose lowering technique was utilized adhering to the principles of ALARA. FINDINGS: Brain parenchyma: There is age-related involutional change noting mild subcortical and periventricular microangiopathic disease. There is no hemorrhage, mass effect, or evidence of acute territorial ischemia by CT criteria. Chronic lacunar infarcts are noted in the left thalamus and the left basal ganglia. Looney-white matter differentiation is preserved. No extra-axial fluid collection is seen. Ventricles, sulci, cisterns: Prominent secondary to involutional change. Intracranial vasculature: There is atherosclerotic calcification of the cavernous carotid and vertebral arteries. Calvarium: The skeletal structures are osteopenic. No depressed calvarial fracture is seen. Soft tissues: There is a large posterior parietal scalp hematoma. Sinuses and mastoids: There is mild mucosal thickening within the right maxillary antrum. Trace mucosal thickening is seen in the ethmoid sinuses. The mastoid air cells are well pneumatized. Orbits: The bony orbits are grossly intact. IMPRESSION: 1 There is no hemorrhage, mass effect, or evidence of acute territorial ischemia by CT criteria. 2. Large posterior parietal scalp hematoma. ACT 112: Negative or not required by law. Electronically signed by: Wil Hernandez M.D. 03/13/2022 10:17 AM Code Status & VTE Plan Code Status DNR/DNI in the event of cardiac or respiratory arrest VTE Prophylaxis Plan VTE Prophylaxis will be ordered: Yes Supervising Physician Co-Signing Physician Notes Patient was seen and examined independently at bedside. Chart reviewed. Case discussed with Sasha SILVA and agree with the documentation above with regards to HPI, physical exam and assessment plan. In summary, this is a 71 year old male with advanced Alzheimer's dementia, resident of [facility] with plan to transfer to [facility], presented to the ED with fall and tonic clonic seizure like activity for 3 minutes, sustaining posterior scalp hematoma. Given Keppra in ED but per discussion with neuro, no need for continuation of AED for now being first isolated episode- will need if recurrent episode. Also had 30 beats of VT in the ED, self limiting. Labs, CT, EKG, tele reviewed. Agree with observation, EEG, seizure precaution, neuro eval, tele, echo. Consider cardio evaluation if tele or echo with concerning findings. Family would like him to be transferred to [facility] directly from here rather than sending back to [facility]. CM notified. Also, family would like more conservative approach rather than being aggressive, as detailed above by Sasha SILVA. Rest as per the note above.
[2022-03-13] MEDS ORDERED: MAGNESIUM SULFATE / D5W 1 GM/100 ML BAG IV STA (11:57)
[2022-03-13] MEDS ORDERED: ONDANSETRON INJ 2 MG/ML 2 ML VIAL IV PRN (15:52)
[2022-03-13] MEDS ORDERED: ACETAMINOPHEN 325 MG TAB PO PRN (15:52)
[2022-03-13] MEDS ORDERED: POLYETHYLENE (MIRALAX) 17 GM PACK PO PRN (15:52)
[2022-03-13] MEDS ORDERED: ALUMINUM/MAGNESIUM SUSP 30 ML UDC PO PRN (15:52)
[2022-03-13] MEDS ORDERED: MAGNESIUM HYDROXIDE SUSP 30 ML UDC PO PRN (15:52)
[2022-03-13] MEDS ORDERED: OLANZapine ZYDIS 5 MG ORALLY DIS. TAB PO ONE (16:48)
[2022-03-13] MEDS ORDERED: OLANZapine 10 MG/2.1 ML SDV IM STA (16:49)
--- NOTE | 2022-03-13 18:00 | Electrocardiogram Report ---
Test Reason : Blood Pressure : / mmHG Vent. Rate : 052 BPM Atrial Rate : 052 BPM P-R Int : 216 ms QRS Dur : 090 ms QT Int : 460 ms P-R-T Axes : 064 063 037 degrees QTc Int : 427 ms Sinus bradycardia with sinus arrhythmia with 1st degree A-V block Low voltage QRS Borderline ECG When compared with ECG of 16-JAN-2022 12:00, CO interval has increased Confirmed by Jj Bautista ([id number]) on 03/13/2022 6:00:08 PM Referred By: REFERRED SELF Confirmed By:Thomas Bautista
[2022-03-13] MEDS: ATORVASTATIN 40 MG TAB PO SCH (20:26)
[2022-03-13] MEDS: MEMANTINE HCL 10 MG TAB PO SCH (20:26)
[2022-03-13] MEDS ORDERED: OLANZapine ZYDIS 5 MG ORALLY DIS. TAB PO SCH (21:00)
[2022-03-14 00:09] LABS: Chol HDL Ratio 3.2 (0-5)
[2022-03-14] MEDS: MEMANTINE HCL 10 MG TAB PO SCH ×2 (08:26→20:56)
[2022-03-14] MEDS: SERTRALINE HCL 50 MG TABLET PO SCH (08:26)
[2022-03-14] MEDS: OLANZAPINE 2.5 MG TAB PO SCH (08:26)
[2022-03-14] MEDS: DOCUSATE SODIUM 100 MG CAP PO SCH (08:30)
[2022-03-14] MEDS ORDERED: OLANZapine 10 MG/2.1 ML SDV IM STA ×2 (08:59→20:49)
[2022-03-14] MEDS ORDERED: ASPIRIN 81 MG ECTAB PO SCH (09:00)
[2022-03-14] MEDS ORDERED: LORazepam 0.5 MG in SYRINGE 0 ML IV ONE (09:15)
--- NOTE | 2022-03-14 10:14 | XRay Report ---
SINGLE VIEW CHEST CLINICAL HISTORY: Postoperative cough and wheezing. FINDINGS: An AP, portable, supine chest radiograph is compared to study dated 01/16/2022. The examinati on is degraded by portable technique and patient rotation. The heart appears enlarged noting atheros clerotic calcification of the thoracic aorta. The pulmonary vasculature is noncongested. The lungs an d pleural spaces are clear. No pneumothorax is seen. The skeletal structures are osteopenic. The bony thorax is grossly intact. IMPRESSION: No acute cardiopulmonary abnormality is identified. ACT 112: Negative or not required by law. Electronically signed by: Wil Hernandez M.D. 03/14/2022 10:13 AM
--- NOTE | 2022-03-14 13:36 | Hospitalist Progress Note ---
Date of Service March 14, 2022 Assessment & Plan (1) Fall: (2) Seizure: (3) Senile degeneration of brain: (4) HLD (hyperlipidemia): Plan Mr. Rice is a 71 year old male who presented to the [facility] from [facility] s/p fall and a reported seizure that lasted about 3 minutes. The patient has a PMH that includes: Advanced Alzheimer's dementia with behavioral disturbance, H/O CVA, HLD. Received Keppra once for empiric dosing in the ED. Dr. Saenz( Neurology) was called from the ED. He recommended to obtain EEG; no antiepileptic medication was recommended as this was patient's first seizure. In the ED, patient had 30 beats of monomorphic V. tach which self terminated. He is DNR/DNI. He was admitted to telemetry floor for further management. Fall ( ? Cardiogenic vs Seizure) Reported to have tonic-clonic seizure after a fall where he hit the back of his head Keppra given empirically and ED doc discussed with [facility] Neurology; Dr. Saenz. No official neuro consult unless subsequent events and recommended to obtain EEG Episode of monomorphic 30 beats of V tach in ED; self terminating Cervical Spine CT: negative Head CT: small occipital hematoma Recently started on Olanzapine for behavior disturbance r/t dementia EKG shows sinus bradycardia with first-degree AV block Echo shows normal systolic function with EF of 55 to 60% with no segmental wall motion abnormality Plan: - Uncertain if patient had a mechanical fall, fall following a seizure or cardiogenic syncope. -Telemetry shows sinus bradycardia with no pauses and no episode of V. tach since admission. Echo unremarkable for wall motion abnormality. We will continue to monitor him on telemetry. He may require outpatient Zio patch. -Continue to monitor for repeat seizure; EEG is pending. No maintenance antiepileptic needed as per neurology discussion with ED. Alzheimer's Dementia with behavioral disturbance: Behavioral disturbance; diagnosed 7 years ago. Pt relies on staff to anticipate and meet most of his ADL needs; still ambulatory with walker independently. No recent falls. One fall noted when patient had covid. Was recently started on Olanzapine for behavioral disturbance; discussed benefit vs risk for this patient; will continue as observed benefit FAST score- up to 6C Palliative Performance Scale - 40-50% Plan; -Discussed with his regarding discharge planning. She would prefer him to go to [facility] unit at discharge. Case management on board. Will appreciate recommendation. -Delirium precautions. HLD: Stable; takes atorvastatin Disposition: PCP: Dr. Cox Code: DNR/DNI VTE Prophylaxis: Lovenox Admission and Anticipated Discharge Date Admission Date: March 13, 2022 Subjective Patient seen and examined at bedside. He was agitated and aggressive. He required Zyprexa to calm him down. His was at bedside. Reports that the patient gets agitated when he has to urinate in a urinal and prefers going to the bathroom. No other episode of seizure noted since the hospitalization. Telemetry shows sinus bradycardia with rate in 40s; no episode of pause or V. tach. Review of Systems Review of Systems: Unobtainable due to mental health condition Physical Exam Physical Exam: GENERAL: Lethargic but awake evaluate voice.. EYE EXAM: Normal conjunctiva. PERRL, no anisocoria and EOM's grossly intact w/o pain. NECK: Supple, no nuchal rigidity, no adenopathy, non-tender. No signs of meningismus. LUNGS: Clear to auscultation. Normal chest wall mechanics. HEART: NSR, no MRG. ABDOMEN: Abdomen soft, non-tender, normo-active bowel sounds, no masses, no rebound or guarding. BACK: No CVA TTP. SKIN: No rashes and no bruising. UPPER EXTREMITIES: Upper extremities are grossly normal. LOWER EXTREMITIES: Grossly normal, no edema. NEURO EXAM: Alert, occasionally follows commands,, cranial nerves II-XII grossly intact, normal speech, moves all 4 extremities. Results & Data Results & Data ([facility]) Vital Signs (Past 12 Hours) Vital Signs Pulse 03/14/22 09:22 44 L Laboratory Results Laboratory Results WBC 5.98 K/ul (4.8-10.8) 03/13/22 08:49 RBC 4.66 M/uL (4.63-6.08) 03/13/22 08:49 Hgb 14.8 g/dl (14.0-18.0) 03/13/22 08:49 Hct 42.9 % (40.1-51.0) 03/13/22 08:49 MCV 92.1 fL (80.0-100.0) 03/13/22 08:49 MCH 31.8 pg (25.0-34.0) 03/13/22 08:49 MCHC 34.5 g/dL (32.0-36.0) 03/13/22 08:49 RDW Std Deviation 43.6 fL (36.4-46.3) 03/13/22 08:49 RDW Coeff of Celeste 12.9 % (11.5-14.5) 03/13/22 08:49 Plt Count 179 K/uL (130-400) 03/13/22 08:49 MPV 9.6 fL (9.4-12.4) 03/13/22 08:49 Immature Gran % (Auto) 0.2 % 03/13/22 08:49 Neut % (Auto) 54.9 % 03/13/22 08:49 Lymph % (Auto) 29.9 % 03/13/22 08:49 [place] % (Auto) 9.9 % 03/13/22 08:49 Eos % (Auto) 4.3 % 03/13/22 08:49 Baso % (Auto) 0.8 % 03/13/22 08:49 Neut # (Auto) 3.28 K/uL (1.4-6.5) 03/13/22 08:49 Lymph # (Auto) 1.79 K/uL (1.2-3.4) 03/13/22 08:49 [place] # (Auto) 0.59 K/uL (0.24-0.82) 03/13/22 08:49 Eos # (Auto) 0.26 K/uL (0-0.50) 03/13/22 08:49 Baso # (Auto) 0.05 K/uL (0-0.2) 03/13/22 08:49 Immature Gran # (Auto) 0.01 K/uL (0.00-0.02) 03/13/22 08:49 PT 11.1 Seconds (9.0-12.0) 03/13/22 09:36 INR 1.0 (0.9-1.1) 03/13/22 09:36 APTT 24.6 Seconds (21.0-31.0) 03/13/22 09:36 PTT Ratio 0.9 03/13/22 09:36 Sodium 139 mmol/L (136-145) 03/13/22 08:49 Potassium 4.5 mmol/L (3.5-5.1) 03/13/22 08:49 Chloride 105 mmol/L (98-107) 03/13/22 08:49 Carbon Dioxide 26 mmol/L (21-32) 03/13/22 08:49 Anion Gap 8 (3-11) 03/13/22 08:49 BUN 11 mg/dl (6-23) 03/13/22 08:49 Creatinine 0.91 mg/dl (0.6-1.4) 03/13/22 08:49 Est Cr Clr Drug Dosing 80.9 ml/min 03/13/22 08:49 Est GFR ( Amer) 99.3 ml/min 03/13/22 08:49 Est GFR (Non-Af Amer) 85.7 ml/min 03/13/22 08:49 BUN/Creatinine Ratio 12.1 (10-20) 03/13/22 08:49 Glucose 145 mg/dl (70-99(Fasting)) H 03/13/22 08:49 Calcium 8.8 mg/dl (8.5-10.1) 03/13/22 08:49 Phosphorus 2.9 mg/dl (2.5-4.9) 03/13/22 08:49 Magnesium 2.1 mg/dl (1.7-2.4) 03/13/22 08:49 Total Bilirubin 0.7 mg/dl (0.2-1.0) 03/13/22 08:49 AST 43 U/L (13-39) H 03/13/22 08:49 ALT 60 U/L (7-52) H 03/13/22 08:49 Alkaline Phosphatase 80 U/L (34-104) 03/13/22 08:49 Troponin I High Sens 8.0 pg/ml (0-20) 03/13/22 21:52 Total Protein 5.7 gm/dl (6.0-8.3) L 03/13/22 08:49 Albumin 3.5 gm/dl (3.4-5.0) 03/13/22 08:49 Globulin 2.2 gm/dl (2.5-4.0) L 03/13/22 08:49 Albumin/Globulin Ratio 1.6 (0.9-2) 03/13/22 08:49 Triglycerides 171 mg/dl (0-150) H 03/13/22 21:52 Cholesterol 174 mg/dl (0-200) 03/13/22 21:52 LDL Cholesterol, Calc 86 mg/dl 03/13/22 21:52 VLDL Cholesterol, Calc 34 mg/dl (0-30) H 03/13/22 21:52 HDL Cholesterol 54 mg/dl 03/13/22 21:52 Cholesterol/HDL Ratio 3.2 (0-5) 03/13/22 21:52 TSH 6.488 uIu/ml (0.300-4.500) H 03/13/22 08:49 Free T4 0.63 ng/dl (0.61-1.60) 03/13/22 08:49 Urine Color Yellow 03/13/22 10:18 Urine Appearance Clear (Clear) 03/13/22 10:18 Urine pH 8.5 (4.5-7.5) H 03/13/22 10:18 Ur Specific [place] 1.013 (1.000-1.030) 03/13/22 10:18 Urine Protein Negative (Negative) 03/13/22 10:18 Urine Glucose (UA) Negative (Negative) 03/13/22 10:18 Urine Ketones Negative (Negative) 03/13/22 10:18 Urine Blood Negative (Negative) 03/13/22 10:18 Urine Nitrite Negative (Negative) 03/13/22 10:18 Urine Bilirubin Negative (Negative) 03/13/22 10:18 Urine Urobilinogen Negative (Negative) 03/13/22 10:18 Ur Leukocyte Esterase Negative (Negative) 03/13/22 10:18 Nasal Screen MRSA (PCR) Negative (Negative) 03/13/22 17:26 SARS-CoV-2, RNA, NAAT NEGATIVE (NEGATIVE) 03/13/22 11:[address] 03/13/22 08:[address] DOSE: 1027.79 mGy.cm HISTORY: Closed head injury., occipital head strike, seizure TECHNIQUE: Multiaxial CT images of the cervical spine were performed and reformatted in the sagittal and coronal plane without the use of contrast. A dose lowering technique was utilized adhering to the principles of ALARA. COMPARISON: Cervical spine CT 01/16/2022. FINDINGS: No fractures. No subluxation. Prevertebral soft tissues and the C1-C2 interval are intact. No pneumothorax. The left C2-C3 facets are fused. Moderate disc space narrowing from C3 through C5. Severe disc space narrowing from C5 through C7. IMPRESSION: No fractures within the cervical spine. ACT 112: Negative or not required by law. Electronically signed by: Mainor Angeles M.D. 03/13/2022 10:[address] 03/13/22 08:49 CT SCAN OF THE BRAIN WITHOUT IV CONTRAST CLINICAL HISTORY: Head injury. Seizure. COMPARISON STUDY: CT of the brain dated 01/16/2022. TECHNIQUE: Unenhanced axial CT scan of the brain is performed from the vertex to the skull base. A dose lowering technique was utilized adhering to the principles of ALARA. FINDINGS: Brain parenchyma: There is age-related involutional change noting mild subcortical and periventricular microangiopathic disease. There is no hemorrhage, mass effect, or evidence of acute territorial ischemia by CT criteria. Chronic lacunar infarcts are noted in the left thalamus and the left basal ganglia. Looney-white matter differentiation is preserved. No extra-axial fluid collection is seen. Ventricles, sulci, cisterns: Prominent secondary to involutional change. Intracranial vasculature: There is atherosclerotic calcification of the cavernous carotid and vertebral arteries. Calvarium: The skeletal structures are osteopenic. No depressed calvarial fracture is seen. Soft tissues: There is a large posterior parietal scalp hematoma. Sinuses and mastoids: There is mild mucosal thickening within the right maxillary antrum. Trace mucosal thickening is seen in the ethmoid sinuses. The mastoid air cells are well pneumatized. Orbits: The bony orbits are grossly intact. IMPRESSION: 1 There is no hemorrhage, mass effect, or evidence of acute territorial ischemia by CT criteria. 2. Large posterior parietal scalp hematoma. ACT 112: Negative or not required by law. Electronically signed by: Wil Hernandez M.D. 03/13/2022 10:17 AM Chest X-Ray 03/14/22 11:48 SINGLE VIEW CHEST CLINICAL HISTORY: Postoperative cough and wheezing. FINDINGS: An AP, portable, supine chest radiograph is compared to study dated 01/16/2022. The examination is degraded by portable technique and patient rotation. The heart appears enlarged noting atherosclerotic calcification of the thoracic aorta. The pulmonary vasculature is noncongested. The lungs and pleural spaces are clear. No pneumothorax is seen. The skeletal structures are osteopenic. The bony thorax is grossly intact. IMPRESSION: No acute cardiopulmonary abnormality is identified. ACT 112: Negative or not required by law. Electronically signed by: Wil Hernandez M.D. 03/14/2022 10:13 AM (1) Fall Encounter type: initial encounter Qualified Code(s): W19.XXXA - Unspecified fall, initial encounter
[2022-03-14 15:13] LABS: Basophils # (auto) 0.06 K/uL (0-0.2); Basophils % (auto) 1.2 %; Eosinophils # (auto) 0.26 K/uL (0-0.50); Hemoglobin 14.8 g/dl (14.0-18.0); Immature Granulocytes # (auto) 0.01 K/uL (0.00-0.02); Immature Granulocytes % (auto) 0.2 %; Lymphocytes # (auto) 1.48 K/uL (1.2-3.4); Lymphocytes % (auto) 28.7 %; Mean Corpuscular Hemoglobin 31.6 pg (25.0-34.0); Mean Corpuscular Hgb Conc 34.4 g/dL (32.0-36.0); Mean Corpuscular Volume 91.7 fL (80.0-100.0); Mean Platelet Volume 9.7 fL (9.4-12.4); Monocytes # (auto) 0.57 K/uL (0.24-0.82); Monocytes % (auto) 11.1 %; Neutrophils # (auto) 2.77 K/uL (1.4-6.5); Neutrophils % (auto) 53.8 %; Platelet Count 190 K/uL (130-400); RDW Coefficient of Variation 12.8 % (11.5-14.5); RDW Standard Deviation 42.8 fL (36.4-46.3); Red Blood Count 4.69 M/uL (4.63-6.08); White Blood Count 5.15 K/ul (4.8-10.8)
[2022-03-14] MEDS ORDERED: OLANZapine ZYDIS 5 MG ORALLY DIS. TAB PO PRN (20:49)
[2022-03-14] MEDS: ATORVASTATIN 40 MG TAB PO SCH (20:56)
[2022-03-15] MEDS ORDERED: OLANZapine 10 MG/2.1 ML SDV IM STA (04:39)
[2022-03-15 07:38] LABS: Basophils # (auto) 0.08 K/uL (0-0.2); Basophils % (auto) 1.1 %; Hematocrit (blood only) 43.5 % (40.1-51.0); Hemoglobin 15.2 g/dl (14.0-18.0); Immature Granulocytes # (auto) 0.09 K/uL (0.00-0.02); Immature Granulocytes % (auto) 1.2 %; Lymphocytes # (auto) 1.64 K/uL (1.2-3.4); Lymphocytes % (auto) 21.8 %; Mean Corpuscular Hemoglobin 31.6 pg (25.0-34.0); Mean Corpuscular Hgb Conc 34.9 g/dL (32.0-36.0); Mean Corpuscular Volume 90.4 fL (80.0-100.0); Mean Platelet Volume 9.4 fL (9.4-12.4); Monocytes # (auto) 0.78 K/uL (0.24-0.82); Monocytes % (auto) 10.4 %; Neutrophils # (auto) 4.62 K/uL (1.4-6.5); Neutrophils % (auto) 61.5 %; Platelet Count 192 K/uL (130-400); RDW Coefficient of Variation 12.8 % (11.5-14.5); RDW Standard Deviation 42.8 fL (36.4-46.3); Red Blood Count 4.81 M/uL (4.63-6.08); White Blood Count 7.51 K/ul (4.8-10.8)
[2022-03-15 08:07] LABS: BUN Creatinine Ratio 14.6 (10-20); Calcium 8.8 mg/dl (8.5-10.1); Creatinine Clr Calc Pharmacy 82.8 ml/min; Est GFR (African American) 101.1 ml/min; Est GFR (Non-African American) 87.2 ml/min; Potassium 4.2 mmol/L (3.5-5.1)
--- NOTE | 2022-03-15 08:39 | Electrocardiogram Report ---
Test Reason : Blood Pressure : / mmHG Vent. Rate : 055 BPM Atrial Rate : 055 BPM P-R Int : 176 ms QRS Dur : 090 ms QT Int : 462 ms P-R-T Axes : 029 062 035 degrees QTc Int : 441 ms Sinus bradycardia Otherwise normal ECG When compared with ECG of 13-MAR-2022 11:44, AK interval has decreased Nonspecific T wave abnormality no longer evident in Anterior leads Confirmed by Jj Bautista ([id number]) on 03/15/2022 8:39:07 AM Referred By: REFERRED SELF Confirmed By:Thomas Bautista
--- NOTE | 2022-03-15 08:43 | Cardiology Consultation ---
Date of Consultation March 15, 2022 Assessment & Plan (1) Fall: (2) Ventricular tachycardia: (3) Seizure: (4) Dementia: Plan This is a 71-year-old male who presented due to a fall and reported tonic-clonic seizure lasting approximately 3 minutes. There is no prior history of seizures, this was a new possible diagnosis for him. Given x1 dose of Keppra without return of symptoms. 30 beat run of VT seen on telemetry while in the ED- no further episodes seen on telemetry since admission. Cause of fall uncertain at this time. Mechanical vs. seizure vs. medication related vs. cardiac ( ? VT) EEG pending per neurology. Will defer seizure workup to the primary team. Patient was recently started on Olanzapine/Zyprexa for behavioral disturbance which has a known adverse effect of possible falls. From a cardiac standpoint related to his episode of VT: Echo and labs were unremarkable. Unable to add beta noe to suppress potential ectopy due to slow resting heart rate. Per the hospitalist team family is wishing for conservative treatment only and patient is currently a DNR/DNI. They are declining any medical or mechanical extraordinary measures including cardioversion or defibrillation. I believe at this time monitoring on telemetry will be helpful to capture any further episode. As an outpatient, can consider ZIO monitor, however, given families wishes I am not sure that the results would change the outcome or treatment plan. Case discussed with Dr. Macario. No further recommendations by cardiology at this time- please reach out with any further questions or concerns. Supervising Physician Co-Signing Physician Notes Patient seen and examined with RICARDO Alejo. Agree with findings and assessment as above. History of Present Illness Reason for Consultation: Nonsustained ventricular tachycardia Requesting Physician: Jeanette hospitalist Attending Physician: Jamie Mancia MD History of Present Illness This is a 71-year-old male who presented to [facility] emergency department from [facility] due to a fall and reported tonic-clonic seizure lasting approximately 3 minutes. There is no prior history of seizures, this was a new possible diagnosis for him. Patient was treated with Keppra in the emergency department. Patient was recently started on olanzapine for behavioral disturbance which has a known adverse effect of possible falls. Family aware per hospitalist team. Neurology mention possibly doing an EEG. Head CT showed a small occipital hematoma On telemetry patient had a 30 beat run of nonsustained monitor for VT with spontaneous conversion to normal sinus rhythm. He was asymptomatic. Patient was made a DNR/DNI-family wishes no medical or mechanical intervention performed including cardioversion or defibrillation. Lab work: Unremarkable. Echo 03/14: LVEF normal at 55 to 60% with no wall motion abnormalities. Grade 2 diastolic dysfunction. No significant valvular pathology. 03/15: Upon entrance into the room patient sleeping soundly in bed. Woke easily. Patient is a poor historian due to underlying dementia. Overall states that he was feeling well. No chest pain. No shortness of breath. No palpitations. Per nursing, no further falls. No dizziness. Telemetry: SB 40-60s, no further VT seen on tele. Past medical history: Advanced Alzheimer's dementia with behavioral disturbance History of CVA Hyperlipidemia Allergies Allergy/AdvReac Type Severity Reaction Status Date / Time ampicillin Allergy Unknown colitis Verified 01/16/22 15:55 celecoxib Allergy Unknown RASH Verified 04/01/21 16:47 clindamycin Allergy Unknown colitis Verified 01/16/22 15:55 penicillin V Allergy Unknown COLITIS Verified 04/01/21 16:47 WITH ALL CILLINS Home Medications Medication Instructions Recorded Confirmed Type atorvastatin 40 mg tablet 40 mg PO QPM 04/01/21 03/13/22 History memantine 10 mg tablet 10 mg PO AMHS 04/01/21 03/13/22 History sertraline 50 mg tablet 50 mg PO DAILY 04/01/21 03/13/22 History aspirin 81 mg tablet,delayed 81 mg PO Q OTHER DAY 01/16/22 03/13/22 History release docusate sodium 100 mg capsule 100 mg PO DAILY 03/15/22 03/15/22 History (Colace) lorazepam 0.5 mg tablet 0.5 mg PO DAILY PRN Agitation 03/15/22 03/15/22 History olanzapine 2.5 mg tablet 2.5 mg PO DAILY 03/15/22 03/15/22 History Patient History Medical History Ambulatory dysfunction COVID-19 Dementia Fall High cholesterol History of CVA (cerebrovascular accident) HLD (hyperlipidemia) Seizure Senile degeneration of brain Surgical History History of knee joint replacement Family History Mother Diabetes Social History Smoking Status: Never smoker Hx Alcohol Use: No Hx Substance Use: No Preferred Language: Botswanan Communication Ability: Impaired Waxer Required: No Beliefs That Will Affect Care: None marital status: Current Living Situation: Spouse Current Living Situation Comment: 1 story home with How many Children do You have: 2 Feels Safe at Home: Yes Assistive Devices: None Review of Systems Review of Systems: Unobtainable due to cognitive status (Dementia) Physical Exam Constitutional: WD/WN, vitals as above no acute distress Eyes: PERRL, conjunctivae normal, anicteric sclerae Neck: normal visual inspection and trachea midline Respiratory: normal respiratory effort, lungs clear to auscultation Cardiovascular: RRR, no murmur, no edema Heart Sounds: normal S1 and normal S2; no murmur Vessels: normal peripheral pulses; no JVD and no carotid bruit Extremities: no edema Gastrointestinal (Abdomen): normal bowel sounds, soft, nontender, no hepatosplenomegaly Psychiatric: Orientation: alert and cooperative; + not oriented x 3 Results & Data ([facility]) Vital Signs (Past 12 Hours) Vital Signs Temp Pulse Pulse Resp BP Pulse Ox O2 Del Method 03/15/22 02:34 36.4 C L 51 L 16 158/90 H 100 Room Air 03/15/22 00:13 62 Laboratory Results Cardiac Enzymes 03/14/22 Range/Units 13:04 Troponin I High Sens 5.7 (0-20) pg/ml CBC 03/14/22 03/15/22 Range/Units 13:04 07:20 WBC 5.15 7.51 (4.8-10.8) K/ul RBC 4.69 4.81 (4.63-6.08) M/uL Hgb 14.8 15.2 (14.0-18.0) g/dl Hct 43.0 43.5 (40.1-51.0) % Plt Count 190 192 (130-400) K/uL Neut # (Auto) 2.77 4.62 (1.4-6.5) K/uL Lymph # (Auto) 1.48 1.64 (1.2-3.4) K/uL [place] # (Auto) 0.57 0.78 (0.24-0.82) K/uL Eos # (Auto) 0.26 0.30 (0-0.50) K/uL Baso # (Auto) 0.06 0.08 (0-0.2) K/uL Comprehensive Metabolic Panel 03/15/22 Range/Units 07:20 Sodium 140 (136-145) mmol/L Potassium 4.2 (3.5-5.1) mmol/L Chloride 107 (98-107) mmol/L Carbon Dioxide 28 (21-32) mmol/L BUN 13 (6-23) mg/dl Creatinine 0.89 (0.6-1.4) mg/dl Glucose 154 H (70-99(Fasting)) mg/dl Calcium 8.8 (8.5-10.1) mg/dl Intake and Output 03/14/22 03/15/22 03/15/22 22:59 06:59 14:59 Other: # Unmeasured Voids 2 1 (1) Fall Encounter type: initial encounter Qualified Code(s): W19.XXXA - Unspecified fall, initial encounter
--- NOTE | 2022-03-15 08:46 | Electrocardiogram Report ---
Test Reason : Blood Pressure : / mmHG Vent. Rate : 056 BPM Atrial Rate : 056 BPM P-R Int : 158 ms QRS Dur : 092 ms QT Int : 470 ms P-R-T Axes : 040 047 024 degrees QTc Int : 453 ms Sinus bradycardia Otherwise normal ECG When compared with ECG of 14-MAR-2022 16:36, (unconfirmed) No significant change was found Confirmed by Jj Bautista ([id number]) on 03/15/2022 8:45:37 AM Referred By: REFERRED SELF Confirmed By:Thomas Bautista
[2022-03-15] MEDS ORDERED: ENOXAPARIN INJ 40 MG/0.4 ML SYR SQ SCH (09:00)
[2022-03-15] MEDS: OLANZAPINE 2.5 MG TAB PO SCH (09:25)
[2022-03-15] MEDS: SERTRALINE HCL 50 MG TABLET PO SCH (09:25)
[2022-03-15] MEDS: MEMANTINE HCL 10 MG TAB PO SCH ×2 (09:25→20:51)
[2022-03-15] MEDS: DOCUSATE SODIUM 100 MG CAP PO SCH (09:26)
[2022-03-15] MEDS ORDERED: LORazepam 1 MG in SYRINGE 0 ML IV PRN (16:51)
--- NOTE | 2022-03-15 18:45 | Hospitalist Progress Note ---
Date of Service March 15, 2022 Assessment & Plan (1) Fall: (2) Seizure: (3) Senile degeneration of brain: (4) HLD (hyperlipidemia): Plan Patient is a 71 yr male who presented to the [facility] from [facility] s/p fall and a reported seizure that lasted about 3 minutes. The patient has a PMH that includes: Advanced Alzheimer's dementia with behavioral disturbance, H/O CVA, HLD. Received Keppra once for empiric dosing in the ED. Dr. Saenz( Neurology) was called from the ED. He recommended to obtain EEG; no antiepileptic medication was recommended as this was patient's first seizure. In the ED, patient had 30 beats of monomorphic V. tach which self terminated. He is DNR/DN I. He was admitted to telemetry floor for further management. Fall Likely multifactorial: Seizure Vs VT Reported to have tonic-clonic seizure after a fall Scalp Hematoma due to fall-POA ? Seizure secondary to withdrawal from lorazepam Keppra given empirically while in ED, and ED staff discussed with [facility] Neurology; Dr. Saenz. No official neuro consult unless subsequent events and recommended to obtain EEG Episode of monomorphic 30 beats of V tach in ED; self terminating --CT head:There is no hemorrhage, mass effect, or evidence of acute territorial ischemia by CT criteria. Large posterior parietal scalp hematoma. --Neck CT:No fractures within the cervical spine. EEG pending Seizure precautions Ativan as needed for seizure EKG shows sinus bradycardia with first-degree AV block Echo shows normal systolic function with EF of 55 to 60% with no segmental wall motion abnormality Appreciate cardiology input No aggressive management as per patient's family May need outpatient ZIO monitor Alzheimer's dementia with behavioral disturbance Pt relies on staff to anticipate and meet most of his ADL needs; still ambulatory with walker independently. No recent falls. Was recently started on Olanzapine for behavioral disturbance SNF as able Delirium precautions. Continue memantine HLD: Stable; on atorvastatin DVT Px: SCDs Re: Scalp Hematoma Code Status : DNR/DNI Admission and Anticipated Discharge Date Admission Date: March 13, 2022 Subjective Patient is seen and examined at bedside Was agitated overnight and received Zyprexa Sitter at bedside Poor historian Discussed with patient's over the phone EEG pending Review of Systems Review of Systems: Other Physical Exam Physical Exam: Physical Exam: Vitals signs as noted above General Appearance:Moderately built and nourished, no apparent distress Head: normocephalic, +traumatic, scalp laceration Eyes: normal inspection, EOMI Neck: supple, Trachea midline Respiratory/Chest: Normal breath sounds, CTA, No accessory muscle use Cardiovascular: S1, S2, No murmur Abdomen/GI:Soft, Non tender, Bowel sounds present Extremities/Musculoskeletal:normal inspection, no edema Neurologic/Psych:grossly no focal neurological deficits, +Dementia Skin: normal color, warm Results & Data Results & Data ([facility]) Vital Signs (Past 12 Hours) Vital Signs Temp Pulse Pulse Resp BP Pulse Ox O2 Del Method 03/15/22 14:16 55 L 03/15/22 10:03 36.3 C L 58 L 16 118/82 95 Room Air Laboratory Results Short CBC 03/15/22 Range/Units 07:20 WBC 7.51 (4.8-10.8) K/ul Hgb 15.2 (14.0-18.0) g/dl Hct 43.5 (40.1-51.0) % Plt Count 192 (130-400) K/uL BMP 03/15/22 07:20 Sodium 140 Potassium 4.2 Chloride 107 Carbon Dioxide 28 BUN 13 Creatinine 0.89 Glucose 154 H Calcium 8.8 (1) Fall Encounter type: initial encounter Qualified Code(s): W19.XXXA - Unspecified fall, initial encounter
[2022-03-15] MEDS: ATORVASTATIN 40 MG TAB PO SCH (20:50)
[2022-03-16 08:24] LABS: BUN Creatinine Ratio 14.9 (10-20); Calcium 8.9 mg/dl (8.5-10.1); Creatinine Clr Calc Pharmacy 69.3 ml/min; Est GFR (African American) 95.5 ml/min; Est GFR (Non-African American) 82.4 ml/min; Potassium 4.5 mmol/L (3.5-5.1)
[2022-03-16] MEDS: SERTRALINE HCL 50 MG TABLET PO SCH (10:00)
[2022-03-16] MEDS: OLANZAPINE 2.5 MG TAB PO SCH (10:00)
[2022-03-16] MEDS: DOCUSATE SODIUM 100 MG CAP PO SCH (10:00)
[2022-03-16] MEDS: MEMANTINE HCL 10 MG TAB PO SCH ×2 (10:00→19:51)
--- NOTE | 2022-03-16 12:28 | Electroencephalogram ---
EEG Procedure Note Date of Service March 16, 2022 Start / End Times Start Time: 9:27 AM End Time: 9:47 AM Referring Physician Sasha Whyte History Seizure-like episode, Alzheimer's dementia Home Medication List Medication Instructions Recorded Confirmed Type atorvastatin 40 mg tablet 40 mg PO QPM 04/01/21 03/13/22 History memantine 10 mg tablet 10 mg PO AMHS 04/01/21 03/13/22 History sertraline 50 mg tablet 50 mg PO DAILY 04/01/21 03/13/22 History aspirin 81 mg tablet,delayed 81 mg PO Q OTHER DAY 01/16/22 03/13/22 History release docusate sodium 100 mg capsule 100 mg PO DAILY 03/15/22 03/15/22 History (Colace) lorazepam 0.5 mg tablet 0.5 mg PO DAILY PRN Agitation 03/15/22 03/15/22 History olanzapine 2.5 mg tablet 2.5 mg PO DAILY 03/15/22 03/15/22 History Inpatient Medication List Atorvastatin Calcium (Atorvastatin 40 Mg Tab) 40 mg PO QPM GIANCARLO Stop: 04/12/22 20:59 Last Admin: 03/15/22 20:50 Dose: 40 mg Documented By: Admin: 03/14/22 20:56 Dose: 40 mg Documented By: Admin: 03/13/22 20:26 Dose: 40 mg Documented By: ANNIA Docusate Sodium (Docusate Sodium 100 Mg Cap) 100 mg PO DAILY GIANCARLO Stop: 04/13/22 08:59 Last Admin: 03/16/22 10:00 Dose: 100 mg Documented By: Admin: 03/15/22 09:26 Dose: 100 mg Documented By: Admin: 03/14/22 08:30 Dose: Not Given Documented By: MARY BETH Memantine (Memantine Hcl 10 Mg Tab) 10 mg PO AMHS GIANCARLO Stop: 04/12/22 20:59 Last Admin: 03/16/22 10:00 Dose: 10 mg Documented By: Admin: 03/15/22 20:51 Dose: 10 mg Documented By: Admin: 03/15/22 09:25 Dose: 10 mg Documented By: Admin: 03/14/22 20:56 Dose: 10 mg Documented By: Admin: 03/14/22 08:26 Dose: 10 mg Documented By: MARY BETH Admin: 03/13/22 20:26 Dose: 10 mg Documented By: ANNIA Olanzapine (Olanzapine 2.5 Mg Tab) 2.5 mg PO QAM GIANCARLO Stop: 04/13/22 08:59 Last Admin: 03/16/22 10:00 Dose: 2.5 mg Documented By: Admin: 03/15/22 09:25 Dose: 2.5 mg Documented By: Admin: 03/14/22 08:26 Dose: 2.5 mg Documented By: MARY BETH Olanzapine (Olanzapine Zydis 5 Mg Orally Dis. Tab) 2.5 mg PO HS PRN PRN Reason: Agitation Stop: 04/12/22 20:59 Last Admin: 03/15/22 03:46 Dose: 2.5 mg Documented By: DMITRY Sertraline HCl (Sertraline Hcl 50 Mg Tablet) 50 mg PO DAILY GIANCARLO Stop: 04/13/22 08:59 Last Admin: 03/16/22 10:00 Dose: 50 mg Documented By: Admin: 03/15/22 09:25 Dose: 50 mg Documented By: Admin: 03/14/22 08:26 Dose: 50 mg Documented By: MARY BETH Discontinued Medications Aspirin (Aspirin 81 Mg Ectab) 81 mg PO Q2D@0900 GIANCARLO Stop: 04/13/22 08:59 Last Admin: 03/14/22 08:26 Dose: 81 mg Documented By: MARY BETH Sodium Chloride (Nss) 500 mls @ 999 mls/hr IV .Q31M GIANCARLO Stop: 03/13/22 09:30 Last Infusion: 03/13/22 09:33 Dose: 0 mls/hr Documented By: Admin: 03/13/22 09:02 Dose: 999 mls/hr Documented By: YOGESH Levetiracetam 1,500 mg/ Sodium (Chloride) 115 mls @ 440 mls/hr IV NOW STA Stop: 03/13/22 09:02 Last Infusion: 03/13/22 09:43 Dose: 0 mls/hr Documented By: Admin: 03/13/22 09:27 Dose: 440 mls/hr Documented By: YOGESH Sodium Chloride (Nss 1000ml) 1,000 mls @ 999 mls/hr IV .Q1H1M ONE Stop: 03/13/22 12:45 Last Infusion: 03/13/22 13:27 Dose: 0 mls/hr Documented By: Admin: 03/13/22 11:50 Dose: 999 mls/hr Documented By: BOLIVAR Magnesium Sulfate/Dextrose (Magnesium Sulfate / D5w) 1 gm in 100 mls @ 100 mls/hr IV NOW STA Stop: 03/13/22 12:56 Last Infusion: 03/13/22 13:27 Dose: 0 mls/hr Documented By: Admin: 03/13/22 12:07 Dose: 100 mls/hr Documented By: BOLIVAR Lorazepam 0.5 mg/ Syringe 0.5 mls @ 2 mls/min IV ONE ONE Stop: 03/14/22 09:16 Last Admin: 03/14/22 14:13 Dose: Not Given Documented By: MARY BETH Lorazepam (Lorazepam 2 Mg/2 Ml Syr) 0.5 mg IV NOW STA; Protocol Stop: 03/13/22 08:49 Last Admin: 03/13/22 09:02 Dose: 0.5 mg Documented By: YOGESH Lorazepam (Lorazepam 2 Mg/2 Ml Syr) Confirm Administered Dose 2 mg .ROUTE .STK- MED ONE Stop: 03/13/22 11:43 Last Admin: 03/13/22 11:50 Dose: Not Given Documented By: BOLIVAR Lorazepam (Lorazepam 2 Mg/2 Ml Syr) 0.5 mg IV NOW STA; Protocol Stop: 03/13/22 11:46 Last Admin: 03/13/22 11:49 Dose: 0.5 mg Documented By: BOLIVAR Olanzapine (Olanzapine Zydis 5 Mg Orally Dis. Tab) 2.5 mg PO ONCE ONE Stop: 03/13/22 16:49 Last Admin: 03/13/22 16:59 Dose: Not Given Documented By: [id number] Olanzapine (Olanzapine 10 Mg/2.1 Ml Sdv) 2.5 mg IM NOW STA Stop: 03/13/22 16:50 Last Admin: 03/13/22 16:55 Dose: 2.5 mg Documented By: [id number] Olanzapine (Olanzapine Zydis 5 Mg Orally Dis. Tab) 2.5 mg PO HS GIANCARLO Stop: 04/12/22 20:59 Last Admin: 03/13/22 21:46 Dose: 2.5 mg Documented By: ANNIA Olanzapine (Olanzapine 10 Mg/2.1 Ml Sdv) 5 mg IM NOW STA Stop: 03/14/22 09:00 Last Admin: 03/14/22 09:11 Dose: 5 mg Documented By: MARY BETH Olanzapine (Olanzapine 10 Mg/2.1 Ml Sdv) 2.5 mg IM NOW STA Stop: 03/14/22 20:50 Last Admin: 03/14/22 21:08 Dose: 2.5 mg Documented By: ANNIA Olanzapine (Olanzapine 10 Mg/2.1 Ml Sdv) 2.5 mg IM NOW STA Stop: 03/15/22 04:40 Last Admin: 03/15/22 04:52 Dose: 2.5 mg Documented By: ANNIA Description This is a 21 electrode EEG with a single channel dedicated to limited EKG. The electrodes were placed in accordance with the International 10-20 system. The background rhythm consists of a mix of 10 Hz alpha activity and 5 to 6 Hz theta activity that is seen fairly continuously throughout the study. There is a symmetric frontal beta rhythm. Photic stimulation is unremarkable. Hyperventilation is not performed. There is no focal slowing. There are no epileptiform abnormalities. There are no sleep changes. Interpretation Abnormal awake/drowsy EEG revealing evidence of a mild to moderate nonspecific encephalopathy. No epileptiform abnormalities observed. [facility] EEG Procedure Codes Indication for Procedure (1) Seizure: Neurology Neurology: [id number] EEG include record awake & drowsy
--- NOTE | 2022-03-16 17:47 | Hospitalist Progress Note ---
Date of Service March 16, 2022 Assessment & Plan (1) Fall: (2) Seizure: (3) Senile degeneration of brain: (4) HLD (hyperlipidemia): Plan Patient is a 71 yr male who presented to the [facility] from [facility] s/p fall and a reported seizure that lasted about 3 minutes. The patient has a PMH that includes: Advanced Alzheimer's dementia with behavioral disturbance, H/O CVA, HLD. Received Keppra once for empiric dosing in the ED. Dr. Saenz( Neurology) was called from the ED. He recommended to obtain EEG; no antiepileptic medication was recommended as this was patient's first seizure. In the ED, patient had 30 beats of monomorphic V. tach which self terminated. He is DNR/DN I. He was admitted to telemetry floor for further management. Fall Likely multifactorial: Seizure Vs VT Reported to have tonic-clonic seizure after a fall Scalp Hematoma due to fall-POA ? Seizure secondary to withdrawal from lorazepam Keppra given empirically while in ED, and ED staff discussed with storage consultant Neurology; Dr. Saenz. No official neuro consult unless subsequent events and recommended to obtain EEG Episode of monomorphic 30 beats of V tach in ED; self terminating --CT head:There is no hemorrhage, mass effect, or evidence of acute territorial ischemia by CT criteria. Large posterior parietal scalp hematoma. --Neck CT:No fractures within the cervical spine. EEG: Abnormal awake/drowsy EEG revealing evidence of a mild to moderate nonspecific encephalopathy. No epileptiform abnormalities observed. Seizure precautions Ativan as needed for seizure EKG shows sinus bradycardia with first-degree AV block Echo shows normal systolic function with EF of 55 to 60% with no segmental wall motion abnormality Appreciate cardiology input No aggressive management as per patient's family May need outpatient ZIO monitor Discussed with Dr. Saenz on 03/16/22/: No new medications recommended unless patient has recurrence of seizure Alzheimer's dementia with behavioral disturbance Pt relies on staff to anticipate and meet most of his ADL needs; still ambulatory with walker independently. No recent falls. Was recently started on Olanzapine for behavioral disturbance SNF as able Delirium precautions. Continue memantine HLD: Stable; on atorvastatin DVT Px: SCDs Re: Scalp Hematoma Code Status : DNR/DNI Admission and Anticipated Discharge Date Admission Date: March 13, 2022 Subjective Patient is seen and examined at bedside Pleasantly confused today Mental status seem to be back to baseline Discussed with patient's at bedside Also discussed with neurologist on-call Dr. Saenz Unable to obtain much history secondary to dementia Review of Systems Review of Systems: Unobtainable due to cognitive status Physical Exam Physical Exam: Physical Exam: Vitals signs as noted above General Appearance:Moderately built and nourished, no apparent distress Head: normocephalic, +traumatic, scalp laceration Eyes: normal inspection, EOMI Neck: supple, Trachea midline Respiratory/Chest: Normal breath sounds, CTA, No accessory muscle use Cardiovascular: S1, S2, No murmur Abdomen/GI:Soft, Non tender, Bowel sounds present Extremities/Musculoskeletal:normal inspection, no edema Neurologic/Psych:grossly no focal neurological deficits, +Dementia Skin: normal color, warm Results & Data Results & Data ([facility]) Vital Signs (Past 12 Hours) Vital Signs Temp Pulse Resp BP Pulse Ox O2 Del Method 03/16/22 16:00 36.3 C L 90 20 117/83 97 Room Air Laboratory Results [facility] 03/16/22 07:24 Sodium 140 Potassium 4.5 Chloride 106 Carbon Dioxide 28 BUN 14 Creatinine 0.94 Glucose 154 H Calcium 8.9 (1) Fall Encounter type: initial encounter Qualified Code(s): W19.XXXA - Unspecified fall, initial encounter
[2022-03-16] MEDS: ATORVASTATIN 40 MG TAB PO SCH (19:51)
[2022-03-16] MEDS ORDERED: OLANZapine 10 MG/2.1 ML SDV IM STA (20:50)
[2022-03-16] MEDS ORDERED: OLANZapine 10 MG/2.1 ML SDV IM PRN (20:50)
[2022-03-17] MEDS: DOCUSATE SODIUM 100 MG CAP PO SCH (09:54)
[2022-03-17] MEDS: OLANZAPINE 2.5 MG TAB PO SCH ×2 (09:54→17:22)
[2022-03-17] MEDS: SERTRALINE HCL 50 MG TABLET PO SCH (09:54)
[2022-03-17] MEDS: MEMANTINE HCL 10 MG TAB PO SCH ×2 (09:54→18:49)
--- NOTE | 2022-03-17 15:17 | Psychiatric Consultation ---
Date of Consultation March 17, 2022 Impression / Recommendations Impression This is a 71 yo old admitted for fall and seziure with advanced Alzheimer's dementia. Diagnostically consistent with likely improving encephalopathy/delirium superimposed on dementia with behavioral disturbance. Goal in dementia is to avoid medication management of behaviors if possible by maximizing non-pharmacologic strategies for behavioral management. However, given worsening agitation/aggression and upcoming transition to new living facility, medication continuation of olanzapine and dose adjustment felt to have ongoing risk/benefit profile that continues to favor treatment. With his at bedside we discussed medication treatment options in detail. Discussed risks, benefits and alternatives. She feels he has done well with olanzapine and would like to see this increased to help with increased agitation. Reviewed side effects including but not limited to: movement (TD, NMS), cardiac (QTc prolongation), and metabolic (stroke, insulin resistance) and necessity for routine fasting lipid and glucose labwork and AIMS done with score of 0. Reviewed that all antipsychotic medications carry black box warning for increased risk of all-cause mortality in setting of dementia which she understa nds. (1) Alzheimer's dementia with behavioral disturbance: (2) Fall: Encounter type: initial encounter Qualified Code(s): W19.XXXA - Unspecified fall, initial encounter (3) Seizure: Plan -Increase olanzapine to 2.5mg qd and before dinner. After he settles into his new memory care unit would consider dose taper to 1.25mg qAM and before dinner to minimize side effects. -Agree with avoiding ativan given increased risk of falls, confusion and disinhibition in older adults and those with dementia -Continue medical workup to rule out and treat any underlying causes contributing to potential delirium, avoid or limit use of deliriogenic medications (benzodiazepines, opioids, anticholinergics) -Continue with delirium prevention measures: raising blinds during the day, closing at night, frequent re-orientation, contact with family/friends, explaining procedures/nursing care measures prior to physical contact, correct any hearing and visual impairments -For behavioral emergency: olanzapine 2.5 mg IM x 1 (DO NOT exceed 5mg per 24 hours, check EKG if IM dose required, NEVER co-administer with IM or IV benzodiazepines). -Reviewed with hospitalist, Dr Mancia Psych History Identifying Data 71 yo man with Alzheimer dementia with behavioral disturbance, CVA a few years ago and HLD admitted after having a fall and seizure at his personal care facility. Psychiatry consulted for medication recommendations for behavioral management after behavioral code holley event yesterday evening. Chief Complaint "aleksander, aleksander bartholomew (singing softly)". History of Present Illness Joe is oriented to self only in some brief spontaneous speech but difficult to interpret sings at one point and another point attempts to communicate with me make some statements about "25 steps". Bedside is his Roxie who is able to provide significant history seems to be a very comforting presence for him. Padma notes that Joe has done well since Zyprexa 2.5 mg once daily was added about a month ago following increased agitation at [facility]. Notably when [facility] did not have their memory unit open as was initially the plan when he was placed there, and this seems to have added to dictation in that setting as he is often not allowed to leave his room or participate in certain activities due to his dementia. Plan is for transfer to an alternative setting on Sunday which does offer a memory unit and likely to better serve his needs. Well at [facility] he has been on Zyprexa for agitation since mid February and also treated with Ativan for agitation. He presented to the hospital following a fall at the facility and observed seizure activity. Since admission here been doing well but had a code holley event last night with agitation, confusion, disorganized behavior including disrobing and required Zyprexa 2.5 mg IM for this. His would prefer to avoid use of Ativan which has been discontinued since being in the hospital would rather go up on the dose of Zyprexa as this has worked very well for him. She notes that he tends to get most agitated around 4 PM in the afternoon. Typically he does not have issues sleeping though she notes he was wandering more at [facility] in part because he was often not allowed to leave his room. Reviewed with her that he does have a history of a stroke as well as high cholesterol. See psych liason note from 03/17/22 for further recent history/details. Allergies Allergy/AdvReac Type Severity Reaction Status Date / Time ampicillin Allergy Unknown colitis Verified 01/16/22 15:55 celecoxib Allergy Unknown RASH Verified 04/01/21 16:47 clindamycin Allergy Unknown colitis Verified 01/16/22 15:55 penicillin V Allergy Unknown COLITIS Verified 04/01/21 16:47 WITH ALL CILLINS Home Medications Medication Instructions Recorded Confirmed Type atorvastatin 40 mg tablet 40 mg PO QPM 04/01/21 03/13/22 History memantine 10 mg tablet 10 mg PO AMHS 04/01/21 03/13/22 History sertraline 50 mg tablet 50 mg PO DAILY 04/01/21 03/13/22 History aspirin 81 mg tablet,delayed 81 mg PO Q OTHER DAY 01/16/22 03/13/22 History release docusate sodium 100 mg capsule 100 mg PO DAILY 03/15/22 03/15/22 History (Colace) lorazepam 0.5 mg tablet 0.5 mg PO DAILY PRN Agitation 03/15/22 03/15/22 History olanzapine 2.5 mg tablet 2.5 mg PO DAILY 03/15/22 03/15/22 History Personal History Beliefs That Will Affect Care: None Patient History Medical History Ambulatory dysfunction COVID-19 Dementia Fall High cholesterol History of CVA (cerebrovascular accident) HLD (hyperlipidemia) Seizure Senile degeneration of brain Surgical History History of knee joint replacement Family History Mother Diabetes Social History Smoking Status: Never smoker Hx Alcohol Use: No Hx Substance Use: No Preferred Language: Maltese Communication Ability: Impaired Debt Collector Required: No Beliefs That Will Affect Care: None marital status: Current Living Situation: Spouse Current Living Situation Comment: 1 story home with How many Children do You have: 2 Feels Safe at Home: Yes Assistive Devices: None Physical Exam Psychiatric: Orientation: alert and oriented to person; + not oriented to place and + not oriented to time Apperance: appropriately dressed and appropriately groomed Eye Contact: + fair eye contact Motor Behavior: no abnormal motor movements; n EPS, n akathisia and n tremor Speech: + abnormal rate/rhythm/volume of speech (dysarthria, brief) Affect: euthymic affect Thought Process: + looseness of associations Thought Content: reality based without delusions Cognition: + recent memory not intact, + remote memory not intact, + attention not intact and + language not intact Insight: + severely impaired insight Judgement: + impaired judgement Vital Signs (Past 24 Hours): Last Vital Signs Temp 37.7 C H 03/16/22 18:59 Pulse 94 H 03/16/22 18:59 Resp 20 03/16/22 18:59 BP 112/76 03/16/22 18:59 Pulse Ox 92 03/16/22 18:59 O2 Del Method 03/16/22 18:59 Review of Systems Unobtainable due to cognitive status Results & Data ([facility]) Diagnostic Findings QTc 453 ms on EKG from 03/15/22 Medications Administered Atorvastatin Calcium (Atorvastatin 40 Mg Tab) 40 mg PO QPM GIANCARLO Stop: 04/12/22 20:59 Last Admin: 03/16/22 19:51 Dose: 40 mg Documented By: Admin: 03/15/22 20:50 Dose: 40 mg Documented By: Admin: 03/14/22 20:56 Dose: 40 mg Documented By: Admin: 03/13/22 20:26 Dose: 40 mg Documented By: ANNIA Docusate Sodium (Docusate Sodium 100 Mg Cap) 100 mg PO DAILY GIANCARLO Stop: 04/13/22 08:59 Last Admin: 03/17/22 09:54 Dose: 100 mg Documented By: Admin: 03/16/22 10:00 Dose: 100 mg Documented By: Admin: 03/15/22 09:26 Dose: 100 mg Documented By: Admin: 03/14/22 08:30 Dose: Not Given Documented By: MARY BETH Memantine (Memantine Hcl 10 Mg Tab) 10 mg PO AMHS GIANCARLO Stop: 04/12/22 20:59 Last Admin: 03/17/22 09:54 Dose: 10 mg Documented By: Admin: 03/16/22 19:51 Dose: 10 mg Documented By: Admin: 03/16/22 10:00 Dose: 10 mg Documented By: Admin: 03/15/22 20:51 Dose: 10 mg Documented By: Admin: 03/15/22 09:25 Dose: 10 mg Documented By: Admin: 03/14/22 20:56 Dose: 10 mg Documented By: Admin: 03/14/22 08:26 Dose: 10 mg Documented By: MARY BETH Admin: 03/13/22 20:26 Dose: 10 mg Documented By: ANNIA Olanzapine (Olanzapine 2.5 Mg Tab) 2.5 mg PO QAM GIANCARLO Stop: 04/13/22 08:59 Last Admin: 03/17/22 09:54 Dose: 2.5 mg Documented By: Admin: 03/16/22 10:00 Dose: 2.5 mg Documented By: Admin: 03/15/22 09:25 Dose: 2.5 mg Documented By: Admin: 03/14/22 08:26 Dose: 2.5 mg Documented By: MARY BETH Olanzapine (Olanzapine Zydis 5 Mg Orally Dis. Tab) 2.5 mg PO HS PRN PRN Reason: Agitation Stop: 04/12/22 20:59 Last Admin: 03/15/22 03:46 Dose: 2.5 mg Documented By: DMITRY Sertraline HCl (Sertraline Hcl 50 Mg Tablet) 50 mg PO DAILY GIANCARLO Stop: 04/13/22 08:59 Last Admin: 03/17/22 09:54 Dose: 50 mg Documented By: Admin: 03/16/22 10:00 Dose: 50 mg Documented By: Admin: 03/15/22 09:25 Dose: 50 mg Documented By: Admin: 03/14/22 08:26 Dose: 50 mg Documented By: MARY BETH Coding Level of Care Code 85916 Inpt Consult Level 3 Diagnoses Alzheimer's dementia with behavioral disturbance G30.9; F02.818 Fall W19.XXXA Encounter type: initial encounter Seizure R56.9 Time Spent (min) 40
[2022-03-17] MEDS: ATORVASTATIN 40 MG TAB PO SCH (18:49)
[2022-03-17] MEDS ORDERED: OLANZapine ZYDIS 5 MG ORALLY DIS. TAB PO SCH (21:00)
[2022-03-18] MEDS: SERTRALINE HCL 50 MG TABLET PO SCH (08:47)
[2022-03-18] MEDS: DOCUSATE SODIUM 100 MG CAP PO SCH (08:47)
[2022-03-18] MEDS: MEMANTINE HCL 10 MG TAB PO SCH ×2 (08:47→19:40)
[2022-03-18] MEDS: OLANZAPINE 2.5 MG TAB PO SCH ×2 (08:48→17:22)
--- NOTE | 2022-03-18 16:28 | Hospitalist Progress Note ---
Date of Service March 18, 2022 Assessment & Plan (1) Fall: (2) Seizure: (3) Senile degeneration of brain: (4) HLD (hyperlipidemia): Plan Patient is a 71 yr male who presented to the [facility] from [facility] s/p fall and a reported seizure that lasted about 3 minutes. The patient has a PMH that includes: Advanced Alzheimer's dementia with behavioral disturbance, H/O CVA, HLD. Received Keppra once for empiric dosing in the ED. Dr. Saenz( Neurology) was called from the ED. He recommended to obtain EEG; no antiepileptic medication was recommended as this was patient's first seizure. In the ED, patient had 30 beats of monomorphic V. tach which self terminated. He is DNR/DN I. He was admitted to telemetry floor for further management. Fall Likely multifactorial: Seizure Vs VT Reported to have tonic-clonic seizure after a fall Scalp Hematoma due to fall-POA ? Seizure secondary to withdrawal from lorazepam Keppra given empirically while in ED, and ED staff discussed with immigration case manager Neurology; Dr. Saenz. No official neuro consult unless subsequent events and recommended to obtain EEG Episode of monomorphic 30 beats of V tach in ED; self terminating --CT head:There is no hemorrhage, mass effect, or evidence of acute territorial ischemia by CT criteria. Large posterior parietal scalp hematoma. --Neck CT:No fractures within the cervical spine. EEG: Abnormal awake/drowsy EEG revealing evidence of a mild to moderate nonspecific encephalopathy. No epileptiform abnormalities observed. Seizure precautions Ativan as needed for seizure EKG shows sinus bradycardia with first-degree AV block Echo shows normal systolic function with EF of 55 to 60% with no segmental wall motion abnormality Appreciate cardiology input No aggressive management as per patient's family May need outpatient ZIO monitor Discussed with Dr. Saenz on 03/16/22/: No new medications recommended unless patient has recurrence of seizure No recurrence of seizure activity while hospitalized Alzheimer's dementia with behavioral disturbance Pt relies on staff to anticipate and meet most of his ADL needs; still ambulatory with walker independently. No recent falls. Was recently started on Olanzapine for behavioral disturbance SNF as able Delirium precautions. Continue memantine Appreciate psychiatry input Continue Olanzapine--dose adjusted to 2.5 mg twice daily Plan to taper it down to 1.25 mg twice a day as outpatient Avoid benzodiazepines HLD: Stable; on atorvastatin DVT Px: SCDs Re: Scalp Hematoma Code Status : DNR/DNI Admission and Anticipated Discharge Date Admission Date: March 13, 2022 Subjective Patient is seen and examined at bedside Was disoriented overnight per staff Pleasantly confused this morning during my encounter No apparent distress, agitation Unable to obtain much history secondary to dementia Review of Systems Review of Systems: All systems reviewed & are unremarkable except as noted in Subjective Physical Exam Physical Exam: Physical Exam: Vitals signs as noted above General Appearance:Moderately built and nourished, no apparent distress Head: normocephalic, +traumatic, scalp laceration Eyes: normal inspection, EOMI Neck: supple, Trachea midline Respiratory/Chest: Normal breath sounds, CTA, No accessory muscle use Cardiovascular: S1, S2, No murmur Abdomen/GI:Soft, Non tender, Bowel sounds present Extremities/Musculoskeletal:normal inspection, no edema Neurologic/Psych:grossly no focal neurological deficits, +Dementia Skin: normal color, warm Results & Data Results & Data ([facility]) Vital Signs (Past 12 Hours) Vital Signs Temp Pulse Pulse Resp BP Pulse Ox O2 Del Method 03/18/22 15:44 36.7 C 79 19 114/73 97 Room Air 03/18/22 15:32 77 03/18/22 08:00 90 03/18/22 11:55 36.4 C L 68 20 110/69 96 Room Air 03/18/22 08:46 37 C 75 20 115/79 96 Room Air (1) Fall Encounter type: initial encounter Qualified Code(s): W19.XXXA - Unspecified fall, initial encounter
[2022-03-18] MEDS: ATORVASTATIN 40 MG TAB PO SCH (19:39)
[2022-03-19] MEDS: OLANZAPINE 2.5 MG TAB PO SCH ×2 (09:25→17:45)
[2022-03-19] MEDS: SERTRALINE HCL 50 MG TABLET PO SCH (09:25)
[2022-03-19] MEDS: DOCUSATE SODIUM 100 MG CAP PO SCH (09:25)
[2022-03-19] MEDS: MEMANTINE HCL 10 MG TAB PO SCH ×2 (09:25→20:05)
--- NOTE | 2022-03-19 15:56 | Hospitalist Progress Note ---
Date of Service March 19, 2022 Assessment & Plan (1) Fall: (2) Seizure: (3) Senile degeneration of brain: (4) HLD (hyperlipidemia): Plan Patient is a 71 yr male who presented to the [facility] from [facility] s/p fall and a reported seizure that lasted about 3 minutes. The patient has a PMH that includes: Advanced Alzheimer's dementia with behavioral disturbance, H/O CVA, HLD. Received Keppra once for empiric dosing in the ED. Dr. Saenz( Neurology) was called from the ED. He recommended to obtain EEG; no antiepileptic medication was recommended as this was patient's first seizure. In the ED, patient had 30 beats of monomorphic V. tach which self terminated. He is DNR/DN I. He was admitted to telemetry floor for further management. Fall Likely multifactorial: Seizure Vs VT Reported to have tonic-clonic seizure after a fall Scalp Hematoma due to fall-POA ? Seizure secondary to withdrawal from lorazepam Keppra given empirically while in ED, and ED staff discussed with manager of employee relations Neurology; Dr. Saenz. No official neuro consult unless subsequent events and recommended to obtain EEG Episode of monomorphic 30 beats of V tach in ED; self terminating --CT head:There is no hemorrhage, mass effect, or evidence of acute territorial ischemia by CT criteria. Large posterior parietal scalp hematoma. --Neck CT:No fractures within the cervical spine. EEG: Abnormal awake/drowsy EEG revealing evidence of a mild to moderate nonspecific encephalopathy. No epileptiform abnormalities observed. Seizure precautions Ativan as needed for seizure EKG shows sinus bradycardia with first-degree AV block Echo shows normal systolic function with EF of 55 to 60% with no segmental wall motion abnormality Appreciate cardiology input No aggressive management as per patient's family May need outpatient ZIO monitor Discussed with Dr. Saenz on 03/16/22/: No new medications recommended unless patient has recurrence of seizure No recurrence of seizure activity while hospitalized Needs Rehab placement Alzheimer's dementia with behavioral disturbance Pt relies on staff to anticipate and meet most of his ADL needs; still ambulatory with walker independently. No recent falls. Was recently started on Olanzapine for behavioral disturbance SNF as able Delirium precautions. Continue memantine Appreciate psychiatry input Continue Olanzapine--dose adjusted to 2.5 mg twice daily Plan to taper it down to 1.25 mg twice a day as outpatient Avoid benzodiazepines HLD: Stable; on atorvastatin DVT Px: SCDs Re: Scalp Hematoma Code Status : DNR/DNI Admission and Anticipated Discharge Date Admission Date: March 13, 2022 Subjective Patient is seen and examined at bedside No agitation today Pleasantly confused Unable to provide much history Discussed with patient's family at bedside Review of Systems Review of Systems: Unobtainable due to cognitive status Physical Exam Physical Exam: Physical Exam: Vitals signs as noted above General Appearance:Moderately built and nourished, no apparent distress Head: normocephalic, +traumatic, scalp laceration Eyes: normal inspection, EOMI Neck: supple, Trachea midline Respiratory/Chest: Normal breath sounds, CTA, No accessory muscle use Cardiovascular: S1, S2, No murmur Abdomen/GI:Soft, Non tender, Bowel sounds present Extremities/Musculoskeletal:normal inspection, no edema Neurologic/Psych:grossly no focal neurological deficits, +Dementia Skin: normal color, warm Results & Data Results & Data ([facility]) Vital Signs (Past 12 Hours) Vital Signs Temp Pulse Pulse Resp BP Pulse Ox O2 Del Method 03/19/22 08:00 69 03/19/22 11:04 36.7 C 81 20 107/68 94 Room Air (1) Fall Encounter type: initial encounter Qualified Code(s): W19.XXXA - Unspecified fall, initial encounter
[2022-03-19] MEDS: ATORVASTATIN 40 MG TAB PO SCH (20:05)
--- NOTE | 2022-03-20 07:32 | Hospitalist Progress Note ---
Date of Service March 20, 2022 Assessment & Plan (1) Fall: (2) Seizure: (3) Senile degeneration of brain: (4) HLD (hyperlipidemia): Plan Patient is a 71 yr male who presented to the [facility] from [facility] s/p fall and a reported seizure that lasted about 3 minutes. The patient has a PMH that includes: Advanced Alzheimer's dementia with behavioral disturbance, H/O CVA, HLD. Received Keppra once for empiric dosing in the ED. Dr. Saenz( Neurology) was called from the ED. He recommended to obtain EEG; no antiepileptic medication was recommended as this was patient's first seizure. In the ED, patient had 30 beats of monomorphic V. tach which self terminated. He is DNR/D NI. He was admitted to telemetry floor for further management. Fall Likely multifactorial: Seizure Vs VT Reported to have tonic-clonic seizure after a fall Scalp Hematoma due to fall-POA ? Seizure secondary to withdrawal from lorazepam Keppra given empirically while in ED, and ED staff discussed with family reunification specialist Neurology; Dr. Saenz. No official neuro consult unless subsequent events and recommended to obtain EEG Episode of monomorphic 30 beats of V tach in ED; self terminating --CT head:There is no hemorrhage, mass effect, or evidence of acute territorial ischemia by CT criteria. Large posterior parietal scalp hematoma. --Neck CT:No fractures within the cervical spine. EEG: Abnormal awake/drowsy EEG revealing evidence of a mild to moderate nonspecific encephalopathy. No epileptiform abnormalities observed. Seizure precautions Ativan as needed for seizure EKG shows sinus bradycardia with first-degree AV block Echo shows normal systolic function with EF of 55 to 60% with no segmental wall motion abnormality Appreciate cardiology input No aggressive management as per patient's family May need outpatient ZIO monitor Discussed with Dr. Saenz on 03/16/22/: No new medications recommended unless patient has recurrence of seizure No recurrence of seizure activity while hospitalized Plan to discharge to SNF today Alzheimer's dementia with behavioral disturbance Pt relies on staff to anticipate and meet most of his ADL needs; still ambulatory with walker independently. No recent falls. Was recently started on Olanzapine for behavioral disturbance SNF as able Delirium precautions. Continue memantine Appreciate psychiatry input Continue Olanzapine--dose adjusted to 2.5 mg twice daily Plan to taper it down to 1.25 mg twice a day as outpatient Avoid benzodiazepines HLD: Stable; on atorvastatin DVT Px: SCDs Re: Scalp Hematoma Code Status : DNR/DNI Admission and Anticipated Discharge Date Admission Date: March 13, 2022 Subjective Patient is seen and examined at bedside No events over night Pleasantly confused this morning Discussed with patient's family at bedside Plan to discharge to SNF today Review of Systems Review of Systems: Unobtainable due to cognitive status Physical Exam Physical Exam: Physical Exam: Vitals signs as noted above General Appearance:Moderately built and nourished, no apparent distress Head: normocephalic, +traumatic, scalp laceration Eyes: normal inspection, EOMI Neck: supple, Trachea midline Respiratory/Chest: Normal breath sounds, CTA, No accessory muscle use Cardiovascular: S1, S2, No murmur Abdomen/GI:Soft, Non tender, Bowel sounds present Extremities/Musculoskeletal:normal inspection, no edema Neurologic/Psych:grossly no focal neurological deficits, +Dementia Skin: normal color, warm Results & Data Results & Data ([facility]) Vital Signs (Past 12 Hours) Vital Signs Temp Pulse Resp BP 03/19/22 20:13 36.4 C L 62 18 136/80 (1) Fall Encounter type: initial encounter Qualified Code(s): W19.XXXA - Unspecified fall, initial encounter
--- NOTE | 2022-03-20 08:10 | Discharge Summary ---
Date of Service March 20, 2022 Admission HPI Per Admitting Provider Mr. Rice is a 71 year old male who presented to the [facility] from [facility] s/p fall and a reported tonic-clonic seizure that lasted about 3 minutes. The patient did hit his head when he fell. The patient has a PMH that includes: advanced alzheimer's dementia with behavioral disturbance, H/O CVA, HLD. Due to patient's advanced dementia, history is unobtainable from him. History is obtained from patient's Amairani. The patient does not have a history of seizures and has not had one before. I was able to meet with the patients , Amairani, at the bedside and also was able to facetime with the patients DIL Rosalinda who is a Pharmacist. At baseline, the patient is ambulatory with his walker, is able to eat independently, requires prompting for the bathroom and needs assistance with bathing and dressing. She has a baby monitor in his room at [facility] and she noticed him getting up with his walker in no apparent distress and he walked into the hallway. It is unclear whether he had a seizure and then a fall or had a fall and then a seizure. In the ED, he received Keppra once for empiric dosing. I talked with Dr. Saenz with Neurology and he stated we could do an EEG. Additionally, in the ED the patient experienced a 30 beat run of monomorphic VT and spontaneously returned to NSR. Plan of care was discussed with family and they would like to have a more conservative approach to his care. The decision was made to continue monitoring with electrolyte replacement as necessary, obtain an ECHO, continue to determine underlying causes of his arrhythmia and seizure with a goal to return to his SNF. The pt stated that she is in the process of having him transferred from [facility] to [facility]. Confirmed pt to be a DNR/DNI in the event of cardiac or respiratory arrest, and confirmed no synchronized cardioversion or defibrillation. Will provide a POLST form to the family as discussed on the phone for them to complete (for future). Patient was lying in his hospital bed, but did become agitated with my physical exam. Patient became further agitated and was able to urinate in the urinal. Per patients , he appears to be neurologically at baseline. Please see A/P for further details. Admission Exam Per Admitting Provider Physical Exam Physical Exam: Neuro: AAOx1, PERRLA, unable to assess CN due to irritiability HEENT: head normocephalic, moist mucus membranes. posterior scalp hematoma with some bleeding noted. CV: S1/S2, (-) M/G/R, (-) edema, cap refill < 3 seconds Resp: Lungs CTA anteriorly. Pt refused to allow posterior auscultation. On RA GI: Abdomen S/NT/ND, Ax4 bowel sounds Musculoskeletal: 5/5 B/L UE strength, 5/5 B/L LE strength; uses walker to ambulate. Follows some commands. Skin: (-) rashes , (-) erythema. Psych: agitated and demented mood Principal Diagnosis Fall Seizure Ventricular Tachycardia Alzheimer's dementia with behavioral disturbance Scalp Hematoma Discharge Data Allergies Allergy/AdvReac Type Severity Reaction Status Date / Time ampicillin Allergy Unknown colitis Verified 01/16/22 15:55 celecoxib Allergy Unknown RASH Verified 04/01/21 16:47 clindamycin Allergy Unknown colitis Verified 01/16/22 15:55 penicillin V Allergy Unknown COLITIS Verified 04/01/21 16:47 WITH ALL CILLINS Consultations 03/13/22 11:45 ED Decision to Admit Stat 03/14/22 17:29 Consult Cardiology Routine 03/17/22 10:54 Consult Psychiatry Routine Procedures Performed Laboratory Results WBC 7.51 K/ul (4.8-10.8) 03/15/22 07:20 RBC 4.81 M/uL (4.63-6.08) 03/15/22 07:20 Hgb 15.2 g/dl (14.0-18.0) 03/15/22 07:20 Hct 43.5 % (40.1-51.0) 03/15/22 07:20 MCV 90.4 fL (80.0-100.0) 03/15/22 07:20 MCH 31.6 pg (25.0-34.0) 03/15/22 07:20 MCHC 34.9 g/dL (32.0-36.0) 03/15/22 07:20 RDW Std Deviation 42.8 fL (36.4-46.3) 03/15/22 07:20 RDW Coeff of Celeste 12.8 % (11.5-14.5) 03/15/22 07:20 Plt Count 192 K/uL (130-400) 03/15/22 07:20 MPV 9.4 fL (9.4-12.4) 03/15/22 07:20 Immature Gran % (Auto) 1.2 % 03/15/22 07:20 Neut % (Auto) 61.5 % 03/15/22 07:20 Lymph % (Auto) 21.8 % 03/15/22 07:20 Jerome % (Auto) 10.4 % 03/15/22 07:20 Eos % (Auto) 4.0 % 03/15/22 07:20 Baso % (Auto) 1.1 % 03/15/22 07:20 Neut # (Auto) 4.62 K/uL (1.4-6.5) 03/15/22 07:20 Lymph # (Auto) 1.64 K/uL (1.2-3.4) 03/15/22 07:20 Jerome # (Auto) 0.78 K/uL (0.24-0.82) 03/15/22 07:20 Eos # (Auto) 0.30 K/uL (0-0.50) 03/15/22 07:20 Baso # (Auto) 0.08 K/uL (0-0.2) 03/15/22 07:20 Immature Gran # (Auto) 0.09 K/uL (0.00-0.02) H 03/15/22 07:20 PT 11.1 Seconds (9.0-12.0) 03/13/22 09:36 INR 1.0 (0.9-1.1) 03/13/22 09:36 APTT 24.6 Seconds (21.0-31.0) 03/13/22 09:36 PTT Ratio 0.9 03/13/22 09:36 Sodium 140 mmol/L (136-145) 03/16/22 07:24 Potassium 4.5 mmol/L (3.5-5.1) 03/16/22 07:24 Chloride 106 mmol/L (98-107) 03/16/22 07:24 Carbon Dioxide 28 mmol/L (21-32) 03/16/22 07:24 Anion Gap 6 (3-11) 03/16/22 07:24 BUN 14 mg/dl (6-23) 03/16/22 07:24 Creatinine 0.94 mg/dl (0.6-1.4) 03/16/22 07:24 Est Cr Clr Drug Dosing 69.3 ml/min 03/16/22 07:24 Est GFR ( Amer) 95.5 ml/min 03/16/22 07:24 Est GFR (Non-Af Amer) 82.4 ml/min 03/16/22 07:24 BUN/Creatinine Ratio 14.9 (10-20) 03/16/22 07:24 Glucose 154 mg/dl (70-99(Fasting)) H 03/16/22 07:24 Calcium 8.9 mg/dl (8.5-10.1) 03/16/22 07:24 Phosphorus 2.9 mg/dl (2.5-4.9) 03/13/22 08:49 Magnesium 2.1 mg/dl (1.7-2.4) 03/13/22 08:49 Total Bilirubin 0.7 mg/dl (0.2-1.0) 03/13/22 08:49 AST 43 U/L (13-39) H 03/13/22 08:49 ALT 60 U/L (7-52) H 03/13/22 08:49 Alkaline Phosphatase 80 U/L (34-104) 03/13/22 08:49 Troponin I High Sens 5.7 pg/ml (0-20) 03/14/22 13:04 Total Protein 5.7 gm/dl (6.0-8.3) L 03/13/22 08:49 Albumin 3.5 gm/dl (3.4-5.0) 03/13/22 08:49 Globulin 2.2 gm/dl (2.5-4.0) L 03/13/22 08:49 Albumin/Globulin Ratio 1.6 (0.9-2) 03/13/22 08:49 Triglycerides 171 mg/dl (0-150) H 03/13/22 21:52 Cholesterol 174 mg/dl (0-200) 03/13/22 21:52 LDL Cholesterol, Calc 86 mg/dl 03/13/22 21:52 VLDL Cholesterol, Calc 34 mg/dl (0-30) H 03/13/22 21:52 HDL Cholesterol 54 mg/dl 03/13/22 21:52 Cholesterol/HDL Ratio 3.2 (0-5) 03/13/22 21:52 TSH 6.488 uIu/ml (0.300-4.500) H 03/13/22 08:49 Free T4 0.63 ng/dl (0.61-1.60) 03/13/22 08:49 Urine Color Yellow 03/13/22 10:18 Urine Appearance Clear (Clear) 03/13/22 10:18 Urine pH 8.5 (4.5-7.5) H 03/13/22 10:18 Ur Specific Ledbetter 1.013 (1.000-1.030) 03/13/22 10:18 Urine Protein Negative (Negative) 03/13/22 10:18 Urine Glucose (UA) Negative (Negative) 03/13/22 10:18 Urine Ketones Negative (Negative) 03/13/22 10:18 Urine Blood Negative (Negative) 03/13/22 10:18 Urine Nitrite Negative (Negative) 03/13/22 10:18 Urine Bilirubin Negative (Negative) 03/13/22 10:18 Urine Urobilinogen Negative (Negative) 03/13/22 10:18 Ur Leukocyte Esterase Negative (Negative) 03/13/22 10:18 Nasal Screen MRSA (PCR) Negative (Negative) 03/13/22 17:26 SARS-CoV-2, RNA, NAAT NEGATIVE (NEGATIVE) 03/13/22 11:[address] 03/13/22 08:[address] DOSE: 1027.79 mGy.cm HISTORY: Closed head injury., occipital head strike, seizure TECHNIQUE: Multiaxial CT images of the cervical spine were performed and reformatted in the sagittal and coronal plane without the use of contrast. A dose lowering technique was utilized adhering to the principles of ALARA. COMPARISON: Cervical spine CT 01/16/2022. FINDINGS: No fractures. No subluxation. Prevertebral soft tissues and the C1-C2 interval are intact. No pneumothorax. The left C2-C3 facets are fused. Moderate disc space narrowing from C3 through C5. Severe disc space narrowing from C5 through C7. IMPRESSION: No fractures within the cervical spine. ACT 112: Negative or not required by law. Electronically signed by: Mainor Angeles M.D. 03/13/2022 10:[address] 03/13/22 08:49 CT SCAN OF THE BRAIN WITHOUT IV CONTRAST CLINICAL HISTORY: Head injury. Seizure. COMPARISON STUDY: CT of the brain dated 01/16/2022. TECHNIQUE: Unenhanced axial CT scan of the brain is performed from the vertex to the skull base. A dose lowering technique was utilized adhering to the principles of ALARA. FINDINGS: Brain parenchyma: There is age-related involutional change noting mild subcortical and periventricular microangiopathic disease. There is no hemorrhage, mass effect, or evidence of acute territorial ischemia by CT criteria. Chronic lacunar infarcts are noted in the left thalamus and the left basal ganglia. Looney-white matter differentiation is preserved. No extra-axial fluid collection is seen. Ventricles, sulci, cisterns: Prominent secondary to involutional change. Intracranial vasculature: There is atherosclerotic calcification of the cavernous carotid and vertebral arteries. Calvarium: The skeletal structures are osteopenic. No depressed calvarial fracture is seen. Soft tissues: There is a large posterior parietal scalp hematoma. Sinuses and mastoids: There is mild mucosal thickening within the right maxi llary antrum. Trace mucosal thickening is seen in the ethmoid sinuses. The mastoid air cells are well pneumatized. Orbits: The bony orbits are grossly intact. IMPRESSION: 1 There is no hemorrhage, mass effect, or evidence of acute territorial ischemia by CT criteria. 2. Large posterior parietal scalp hematoma. ACT 112: Negative or not required by law. Electronically signed by: Wil Hernandez M.D. 03/13/2022 10:17 AM Chest X-Ray 03/14/22 11:48 SINGLE VIEW CHEST CLINICAL HISTORY: Postoperative cough and wheezing. FINDINGS: An AP, portable, supine chest radiograph is compared to study dated 01/16/2022. The examination is degraded by portable technique and patient rotation. The heart appears enlarged noting atherosclerotic calcification of the thoracic aorta. The pulmonary vasculature is noncongested. The lungs and pleural spaces are clear. No pneumothorax is seen. The skeletal structures are osteopenic. The bony thorax is grossly intact. IMPRESSION: No acute cardiopulmonary abnormality is identified. ACT 112: Negative or not required by law. Electronically signed by: Wil Hernandez M.D. 03/14/2022 10:13 AM Ordered Studies 03/13/22 08:48 CT cervical spine wo con Stat 03/13/22 08:49 CT head/brain wo con Stat Hospital Course (1) Fall: (2) Seizure: (3) Senile degeneration of brain: (4) HLD (hyperlipidemia): Plan Patient is a 71 yr male who presented to the [facility] from [facility] s/p fall and a reported seizure that lasted about 3 minutes. The patient has a PMH that includes: Advanced Alzheimer's dementia with behavioral disturbance, H/O CVA, HLD. Received Keppra once for empiric dosing in the ED. Dr. Saenz( Neurology) was called from the ED. He recommended to obtain EEG; no antiepileptic medication was recommended as this was patient's first seizure. In the ED, patient had 30 beats of monomorphic V. tach which self terminated. He is DNR/DNI. He was admitted to telemetry floor for further management. Fall Likely multifactorial: Seizure Vs VT Reported to have tonic-clonic seizure after a fall Scalp Hematoma due to fall-POA ? Seizure secondary to withdrawal from lorazepam Keppra given empirically while in ED, and ED staff discussed with consultant Neurology; Dr. Saenz. No official neuro consult unless subsequent events and recommended to obtain EEG Episode of monomorphic 30 beats of V tach in ED; self terminating --CT head:There is no hemorrhage, mass effect, or evidence of acute territorial ischemia by CT criteria. Large posterior parietal scalp hematoma. --Neck CT:No fractures within the cervical spine. EEG: Abnormal awake/drowsy EEG revealing evidence of a mild to moderate nonspecific encephalopathy. No epileptiform abnormalities observed. Seizure precautions Ativan as needed for seizure EKG shows sinus bradycardia with first-degree AV block Echo shows normal systolic function with EF of 55 to 60% with no segmental wall motion abnormality Appreciate cardiology input No aggressive management as per patient's family May need outpatient ZIO monitor Discussed with Dr. Saenz on 03/16/22/: No new medications recommended unless patient has recurrence of seizure No recurrence of seizure activity while hospitalized Plan to discharge to SNF today Alzheimer's dementia with behavioral disturbance Pt relies on staff to anticipate and meet most of his ADL needs; still ambulatory with walker independently. No recent falls. Was recently started on Olanzapine for behavioral disturbance SNF as able Delirium precautions. Continue memantine Appreciate psychiatry input Continue Olanzapine--dose adjusted to 2.5 mg twice daily Plan to taper it down to 1.25 mg twice a day as outpatient Avoid benzodiazepines HLD: Stable; on atorvastatin DVT Px: SCDs Re: Scalp Hematoma Code Status : DNR/DNI Total Time Total Time Spent Total Time Spent (In Minutes): 48 minutes Discharge Plan Discharge Items Patient Disposition: Transfer [facility] Reason For Visit: FALL Discharge Diagnosis: Fall Seizure Ventricular Tachycardia Alzheimer's dementia with behavioral disturbance Scalp Hematoma Activity: Per Instructions section Exercise/Sports: Gradually increase as tolerated Non-emergency contact: Primary Care Provider Call non-emergency contact if: you have any medication questions, your symptoms worsen, your pain is concerning for you and you have a fever Follow-up/Referrals: Corby Cox, [Primary Care Provider] - Diet: Regular Addtl Attending Provider Instructions: Follow-up with your primary care physician in 1 week Consider following with your neurologist Dr. Saenz if recurrence of seizure activity. -- Consider decreasing olanzapine dose to 1.25 mg qAMq and before dinner to minimize side effects as recommended by her psychiatrist. --Avoid Benzodiazepines (lorazepam) given increased risk for falls, confusion, disinhibition and elderly with dementia. Seek immediate medical attention if your symptoms reoccur or worsen Please take all medications as instructed on discharge list below. Please call if you have any questions or problems. You can reach a [facility] hospitalist on duty at [facility] 24 hours a day by calling [phone] Pending Studies at Discharge: No Stand-Alone Forms: My [facility] Skilled Items Patient informed of condition?: Yes DNR: Yes Discharge Level of Care: Skilled Communicable Disease: No Discharge Prognosis: Stable Lines: None Urinary Catheter: No Medications and DC Order Prescriptions: Continued aspirin 81 mg Tablet,Delayed Release (Dr/Ec) 81 mg PO Q OTHER DAY memantine 10 mg tablet 10 mg PO AMHS atorvastatin 40 mg tablet 40 mg PO QPM sertraline 50 mg tablet 50 mg PO DAILY docusate sodium [Colace] 100 mg Capsule 100 mg PO DAILY Changed olanzapine 2.5 mg tablet 2.5 mg PO BID Qty: 20 0RF Discontinued lorazepam 0.5 mg tablet 0.5 mg PO DAILY PRN (Reason: Agitation) Discharge Orders: Discharge Order (Routine); Ordered 03/20/22 Ordered By: Jamie Mancia Admission Data Admit Date/Time: 03/13/22 11:50 Attending Provider: Jamie Mancia Admit Provider: Juan Wilkinson Primary Care Provider: oCrby Cox Other Providers: Juan Wilkinson ; [facility] ; Popeye Macario ; Nithya Corona ; Zenaida Greenberg ; Yamila Alfred
[2022-03-20] MEDS: MEMANTINE HCL 10 MG TAB PO SCH (08:19)
[2022-03-20] MEDS: SERTRALINE HCL 50 MG TABLET PO SCH (08:19)
[2022-03-20] MEDS: DOCUSATE SODIUM 100 MG CAP PO SCH (08:19)
[2022-03-20] MEDS: OLANZAPINE 2.5 MG TAB PO SCH (08:19)
== END 2022-03-20 10:06 | DRG 101 ==
LOC: ED 08:36 → 2W 11:50 → SUATTDRO 11:50 → 2W 14:37

== ENCOUNTER 2023-06-22 19:03 | Inpatient (IN) ==
[2023-06-22] MEDS ORDERED: ACETAMINOPHEN 1,000 MG/100 ML VIAL IV STA (19:40)
[2023-06-22] MEDS ORDERED: SODIUM CHLORIDE 0.9% 500 ML IV SCH (19:45)
--- NOTE | 2023-06-22 20:04 | Emergency Department Note ---
Impression & Plan Febrile illness, acute ED Provider Note NAME: RACHAEL HOPSON AGE: 73 SEX: Male INFORMANT: Patient's ED PROVIDER(S): Almas Miller MD CHIEF COMPLAINT: Fever and cough PLAN: Disposition: Admitted Outpatient prescription management: none Referral: None MEDICAL DECISION MAKING: Patient presented with febrile illness. Sepsis workup initiated. Chest x-ray was performed and was concerning for left lower lobe infiltrate. Patient was given IV fluids and Tylenol. Lactate came back elevated as was his white blood cell count. Patient was given sepsis fluids based on ideal body weight and IV Levaquin. He has significant reactions to clindamycin and penicillins. Bio fire testing revealed a negative COVID test however he is positive for rhinovirus. Urinalysis was unremarkable. Discussed patient situation with . She notes he was prior taking care of by the [facility] primary care network in the past and would like to have the [facility] team take care of him now. Consultation was made with the [facility] hospitalist[facility]. He did meet with the patient and . After further discussion he recommended admission to the [facility] service. in agreement. Consultation was made with Dr. Raghavendra Vides of the [facility] service. Patient was evaluated in the ER for further management. Patient was admitted. He did have some mildly low blood pressure. Repeat lactate did show improvement but was still mildly elevated. Discussed this with general medicine. Patient is DNR and confirmed with . She is comfortable with fluids and antibiotics but does not want any more advanced resuscitative measures or intubation/CPR if he worsens. Due to this vasopressor medication was not administered. Dr. Vides in agreement. Of note, patient's blood pressure did improve with additional fluids Care/management discussed with: senior research manager Level of care consideration(s): After review of the information above and other included data, I feel the patient requires escalation of care to admission Triage Nursing notes: reviewed and agree them. Vital Signs: reviewed and remarkable for fever Additional History obtained from: Patient's Chronic Medical/Social Conditions affecting care: Advanced dementia Prior/ Outside/ External records reviewed: long term records reviewed regarding patient's medical status. Patient is DNR. Differential Diagnosis: Sepsis, UTI, pneumonia, metabolic, electrolyte abnormalities, cardiac sources, intracerebral event, toxicologic, neurologic, as well as other pathologies. Diagnostics, independently interpreted by me: ECG: Twelve-lead ECG reveals sinus tachycardia 112 bpm. Baseline data present. Poor R wave progression anteriorly. No ST elevation. No PVCs. Cardiac Monitoring: Cardiac monitoring ordered by me: The patient was placed on continuous cardiac monitoring and observed. It revealed a normal sinus rhythm at 92 beats per minute without ectopy or evidence of dysrhythmia. Medical decision rules: none Imaging studies: Chest x-ray concerning for left lower lobe infiltrate. HPI: 73 year old Male arrives for evaluation of fever and cough. is present helps with history. Patient has severe dementia and is debilitated. He is residing at [facility]. Patient has had fever and cough for about 4 days now. He is essentially aphasic and severely debilitated due to advanced dementia. Patient did have a pulse oximetry of 90% prehospital. He was placed on 4 L nasal cannula. Patient cannot help with the history. does note the patient has a dark tooth on the left upper side but denies any facial swelling. No vomiting reported. History is limited secondary to patient's severe dementia. PAST MEDICAL HISTORY: See Below, Alzheimer's dementia PAST SURGICAL HISTORY: See Below, SOCIAL HISTORY: See Below, HOME MEDICATIONS: See Below ALLERGIES: See Below VITALS: See Below PHYSICAL EXAMINATION: GENERAL: Awake, mildly ill-appearing, in no distress HENT: Normocephalic, atraumatic. Oropharynx unremarkable except for a darkened tooth in the left upper side. No surrounding gum erythema or facial swelling. EYES: Normal conjunctiva. Sclera non-icteric. NECK: Inspection normal. Non-tender. Supple. No nuchal rigidity. FROM. No masses. RESPIRATORY: Few scattered crackles. No cough currently. No wheezes normal respiratory effort. CARDIAC: Tachycardic rate. Normal rhythm. No murmurs. No rubs. Extremities warm and well perfused. Pulses equal. No JVD. GI: Soft, non-distended. No tenderness to palpation. No rebound or guarding. No masses. RECTAL: Deferred. MUSCULOSKELETAL: Atraumatic. Chest examination reveals no tenderness. No joint edema. LOWER EXTREMITIES: Calves are equal size bilaterally and non-tender. No edema. No discoloration. NEURO: Demented sensorium. Aphasic. Not following commands. SKIN: No rash or jaundice noted. PROCEDURES: none CRITICAL CARE: none OBSERVATION NOTE: none Past Med/Surg History Medical History (Updated 06/22/23 @ 23:06 by Yamila Rosa MD) History of CVA (cerebrovascular accident) HLD (hyperlipidemia) Senile degeneration of brain Seizure Fall COVID-19 Ambulatory dysfunction High cholesterol Dementia Surgical History History of knee joint replacement Family History Mother Diabetes Social History Smoking Status: Never smoker Hx Alcohol Use: No Hx Substance Use: No Preferred Language: Swedish Communication Ability: Impaired Communication Ability Comment: patient is very demented, confused Sewer Connector Required: No Beliefs That Will Affect Care: None marital status: Current Living Situation: Spouse Current Living Situation Comment: 1 story home with How many Children do You have: 2 Feels Safe at Home: Yes Assistive Devices: None Allergies Allergies Allergy/AdvReac Type Severity Reaction Status Date / Time ampicillin Allergy Unknown colitis Verified 06/22/23 20:36 celecoxib Allergy Unknown RASH Verified 06/22/23 20:36 clindamycin Allergy Unknown colitis Verified 06/22/23 20:36 penicillin V Allergy Unknown COLITIS Verified 06/22/23 20:36 WITH ALL CILLINS Home Meds Home Medications Medication Instructions Recorded Confirmed atorvastatin 40 mg tablet 40 mg PO QPM 04/01/21 06/22/23 memantine 10 mg tablet 10 mg PO BID 04/01/21 06/22/23 sertraline 50 mg tablet 50 mg PO QAM 04/01/21 06/22/23 aspirin 81 mg tablet,delayed 81 mg PO Q OTHER DAY 01/16/22 06/22/23 release docusate sodium 100 mg capsule 100 mg PO BID 03/15/22 06/22/23 (Colace) B complex-C 500 mg-folic 400 1 tab PO QAM 06/22/23 06/22/23 mcg-zinc 23.9 mg-cupric 3 mg-vit E tablet (Llbbxzqsxgub-Uiod-Yzwnuk) acetaminophen 325 mg tablet 650 mg PO BID 06/22/23 06/22/23 acetaminophen 325 mg tablet 650 mg PO Q6 PRN Pain 06/22/23 06/22/23 acetaminophen 325 mg tablet 650 mg PO Q6 PRN temp>100 06/22/23 06/22/23 carboxymethylcellulose sodium 0.5 2 drp OPB QID 06/22/23 06/22/23 % eye drops in a dropperette (Refresh Plus) cholecalciferol (vitamin D3) 50 50 mcg PO QAM 06/22/23 06/22/23 mcg (2,000 unit) tablet (Vitamin D3) eyelid cleansers pads 1 pad topical QAM 06/22/23 06/22/23 guaifenesin 400 mg tablet 400 mg PO QID 06/22/23 06/22/23 insulin glargine 100 unit/mL 20 unit subcut QPM 06/22/23 06/22/23 subcutaneous solution (Lantus U-100 Insulin) levothyroxine 75 mcg tablet 75 mcg PO QAM 06/22/23 06/22/23 lorazepam 0.5 mg tablet 0.25 mg PO DAILY 06/22/23 06/22/23 metformin 500 mg tablet 1,000 mg PO BID 06/22/23 06/22/23 omeprazole 20 mg capsule,delayed 20 mg PO QAM 06/22/23 06/22/23 release sennosides 8.6 mg tablet (senna) 8.6 mg PO BID 06/22/23 06/22/23 Results & Data (ED) Vital Signs Vital Signs - 24 hr 06/22/23 19:30 06/22/23 19:30 06/22/23 20:00 Temperature 38.6 C H 38.6 C H Temperature Source Rectal Rectal Pulse Rate 108 H 94 H Pulse Rate [Apical] 108 H Pulse Rhythm Regular Pulse Rhythm [Apical] Regular Pulse Strength Normal Pulse Strength [Apical] Normal Respiratory Rate 22 22 22 Respiratory Effort / Characteristics Non-Labored Non-Labored Respiratory Depth Normal Normal Blood Pressure 124/88 120/78 Blood Pressure [Right Arm] 124/88 Blood Pressure Mean 100 92 Blood Pressure Mean [Right Arm] 100 Pulse Oximetry 95 95 93 Oxygen Delivery Method Nasal Cannula Nasal Cannula Oxygen Flow Rate 2 2 Sepsis Recent Fever Within 48 Hours Yes Sepsis New/Unexplained Change in Mental Status No Sepsis Action Taken by Nursing Adv Provider Notified 06/22/23 20:10 06/22/23 20:30 06/22/23 21:00 Temperature Temperature Source Pulse Rate 83 69 93 H Pulse Rate [Apical] Pulse Rhythm Pulse Rhythm [Apical] Pulse Strength Pulse Strength [Apical] Respiratory Rate 23 23 Respiratory Effort / Characteristics Respiratory Depth Blood Pressure 103/64 114/79 Blood Pressure [Right Arm] Blood Pressure Mean 77 90 Blood Pressure Mean [Right Arm] Pulse Oximetry 94 95 Oxygen Delivery Method Oxygen Flow Rate Sepsis Recent Fever Within 48 Hours Sepsis New/Unexplained Change in Mental Status Sepsis Action Taken by Nursing 06/22/23 21:17 06/22/23 21:30 06/22/23 21:50 Temperature Temperature Source Pulse Rate 81 83 Pulse Rate [Apical] 81 Pulse Rhythm Regular Pulse Rhythm [Apical] Regular Pulse Strength Pulse Strength [Apical] Respiratory Rate 23 19 16 Respiratory Effort / Characteristics Non-Labored Respiratory Depth Normal Blood Pressure 99/69 L Blood Pressure [Right Arm] 114/79 Blood Pressure Mean 79 Blood Pressure Mean [Right Arm] 90 Pulse Oximetry 96 97 96 Oxygen Delivery Method Nasal Cannula Nasal Cannula Oxygen Flow Rate 2 2 Sepsis Recent Fever Within 48 Hours Sepsis New/Unexplained Change in Mental Status Sepsis Action Taken by Nursing 06/22/23 22:00 06/22/23 22:30 Temperature Temperature Source Pulse Rate 87 81 Pulse Rate [Apical] Pulse Rhythm Pulse Rhythm [Apical] Pulse Strength Pulse Strength [Apical] Respiratory Rate 18 19 Respiratory Effort / Characteristics Respiratory Depth Blood Pressure 93/63 L 95/66 L Blood Pressure [Right Arm] Blood Pressure Mean 73 75 Blood Pressure Mean [Right Arm] Pulse Oximetry 97 97 Oxygen Delivery Method Nasal Cannula Oxygen Flow Rate 2 Sepsis Recent Fever Within 48 Hours Sepsis New/Unexplained Change in Mental Status Sepsis Action Taken by Nursing Laboratory Data 06/22/23 19:26 06/22/23 19:26 Lab Results 06/22/23 06/22/23 06/22/23 Range/Units 19:26 20:04 20:49 WBC 13.29 H (4.8-10.8) K/ul RBC 5.12 (4.70-6.10) M/uL Hgb 15.7 (14.0-18.0) g/dl Hct 46.9 (42.0-52.0) % MCV 91.6 (80.0-100.0) fL MCH 30.7 (25.0-34.0) pg MCHC 33.5 (32.0-36.0) g/dL RDW Std Deviation 41.3 (36.4-46.3) fL RDW Coeff of Celeste 12.3 (11.5-14.5) % Plt Count 223 (130-400) K/uL MPV 10.1 (9.4-12.4) fL Immature Gran % (Auto) 0.4 % Neut % (Auto) 82.3 % Lymph % (Auto) 8.8 % [place] % (Auto) 7.5 % Eos % (Auto) 0.6 % Baso % (Auto) 0.4 % Neut # (Auto) 10.94 H (1.40-6.50) K/uL Lymph # (Auto) 1.17 L (1.20-3.40) K/uL [place] # (Auto) 1.00 H (0.11-0.59) K/uL Eos # (Auto) 0.08 (0.00-0.50) K/uL Baso # (Auto) 0.05 (0.00-0.20) K/uL Immature Gran # (Auto) 0.05 (0.01-0.20) K/uL Sodium 142 (136-145) mmol/L Potassium 3.7 (3.5-5.1) mmol/L Chloride 106 (98-107) mmol/L Carbon Dioxide 24 (21-32) mmol/L Anion Gap 12 H (3-11) BUN 16 (6-23) mg/dl Creatinine 0.71 (0.6-1.4) mg/dl Est Cr Clr Drug Dosing 92.3 ml/min Est GFR ( Amer) 109.4 ml/min Est GFR (Non-Af Amer) 94.4 ml/min BUN/Creatinine Ratio 22.5 H (10-20) Glucose 155 H (70-99(Fasting)) mg/dl Lactate 2.8 H* (0.4-2.0) mmol/L Calcium 9.4 (8.6-10.3) mg/dl Magnesium 1.8 (1.7-2.4) mg/dl Total Bilirubin 0.7 (0.2-1.0) mg/dl Direct Bilirubin 0.1 (0-0.2) mg/dl AST 33 (13-39) U/L ALT 36 (7-52) U/L Alkaline Phosphatase 78 (34-104) U/L Troponin I High Sens 12.4 (0-20) pg/ml Total Protein 7.4 (6.0-8.3) gm/dl Albumin 4.0 (3.4-5.0) gm/dl Procalcitonin 0.17 (0-0.5) ng/ml Urine Color Dark Yellow Urine Appearance Clear (Clear) Urine pH 5.5 (4.5-7.5) Ur Specific [place] 1.042 H (1.000-1.030) Urine Protein 1+ H (Negative) Urine Glucose (UA) Negative (Negative) Urine Ketones Trace H (Negative) Urine Blood Negative (Negative) Urine Nitrite Negative (Negative) Urine Bilirubin Negative (Negative) Urine Urobilinogen Negative (Negative) Ur Leukocyte Esterase Negative (Negative) Urine WBC (Auto) 1-5 (0-5) /hpf Urine RBC (Auto) 0-4 (0-4) /hpf U Hyaline Cast (Auto) 1-5 (0-5) /lpf U Epithel Cells (Auto) 20-30 H (0-5) /lpf Urine Bacteria (Auto) Negative (Negative) Adenovirus (PCR) Not Detected (NotDetected) B. pertussis DNA (PCR) Not Detected (NotDetected) B.parapertussis DNA PCR Not Detected (NotDetected) C. pneumoniae DNA (PCR) Not Detected (NotDetected) Coronavirus OC43 (PCR) Not Detected (NotDetected) Coronavirus HKU1 (PCR) Not Detected (NotDetected) Coronavirus 229E (PCR) Not Detected (NotDetected) SARS-CoV-2 (PCR) Not Detected (NotDetected) Coronavirus NL63 (PCR) Not Detected (NotDetected) Human Metapneumovir PCR Not Detected (NotDetected) Influenza Type A (PCR) Not Detected (NotDetected) Influenza Type B (PCR) Not Detected (NotDetected) M. pneumoniae (PCR) Not Detected (NotDetected) Parainfluenza 1 (PCR) Not Detected (NotDetected) Parainfluenza 2 (PCR) Not Detected (NotDetected) Parainfluenza 3 (PCR) Not Detected (NotDetected) Parainfluenza 4 (PCR) Not Detected (NotDetected) RSV (PCR) Not Detected (NotDetected) Entero/Rhino (PCR) DETECTED A* (NotDetected) Administered Medications Potassium Chloride/Sodium Chloride (Normal Saline W/20 Meq Kcl) 20 meq in 1,000 mls @ 150 mls/hr IV .Q6H40M [facility]; Protocol Stop: 06/23/23 13:14 Last Admin: 06/23/23 02:20 Dose: 150 mls/hr Documented By: Discontinued Medications Albuterol (Albut/Ipratrop 3mg/0.5mg Neb 3 Ml Vial) 3 ml NEB NOW ONE; Protocol Stop: 06/22/23 23:36 Last Admin: 06/23/23 02:45 Dose: 3 ml Documented By: DMITRIY Budesonide (Budesonide 0.5 Mg/2 Ml Vial (Pulmicort)) 0.5 mg NEB ONCE ONE Stop: 06/22/23 23:36 Last Admin: 06/23/23 02:45 Dose: 0.5 mg Documented By: DMITRIY Sodium Chloride (Nss) 500 mls @ 999 mls/hr IV .Q31M [facility] Stop: 06/22/23 20:15 Last Infusion: 06/22/23 22:51 Dose: Infused Documented By: Admin: 06/22/23 20:14 Dose: 999 mls/hr Documented By: SERGIO Acetaminophen (Ofirmev) 1,000 mg in 100 mls @ 400 mls/hr IV NOW [facility] Stop: 06/22/23 19:54 Last Infusion: 06/22/23 22:50 Dose: Infused Documented By: Admin: 06/22/23 20:13 Dose: 400 mls/hr Documented By: SERGIO Sodium Chloride (Nss) 1,000 mls @ 999 mls/hr IV .Q1H1M ONE Stop: 06/22/23 21:50 Last Infusion: 06/22/23 22:51 Dose: Infused Documented By: Admin: 06/22/23 21:04 Dose: 999 mls/hr Documented By: SERGIO Sodium Chloride (Nss) 500 mls @ 999 mls/hr IV .Q31M ONE Stop: 06/22/23 21:20 Last Infusion: 06/22/23 22:51 Dose: Infused Documented By: Admin: 06/22/23 21:42 Dose: 999 mls/hr Documented By: SERGIO Levofloxacin/Dextrose (Levaquin/D5w) 750 mg in 150 mls @ 100 mls/hr IV NOW STA Stop: 06/22/23 22:20 Last Infusion: 06/22/23 22:51 Dose: Infused Documented By: Admin: 06/22/23 21:10 Dose: 100 mls/hr Documented By: SERGIO Sodium Chloride (Nss) 500 mls @ 999 mls/hr IV .Q31M ONE Stop: 06/22/23 23:34 Last Admin: 06/23/23 02:31 Dose: Not Given Documented By: Lactated Ringer's (Lr) 1,000 mls @ 100 mls/hr IV .Q10H GIANCARLO Stop: 06/23/23 19:53 Last Admin: 06/23/23 02:25 Dose: Not Given Documented By: Albumin Human (Albumin 5%) 250 mls @ 500 mls/hr IV ONE ONE Stop: 06/23/23 00:32 Last Admin: 06/23/23 02:22 Dose: 500 mls/hr Documented By: Imaging Data Radiologist's Impression: Chest X-Ray 06/22/23 19:40 SINGLE VIEW CHEST CLINICAL HISTORY: Sepsis. FINDINGS: An AP, portable, upright chest radiograph is compared to study dated 03/14/2022. Correlation is made with chest CT dated 01/12/2013. The examination is degraded by portable technique and patient rotation. The heart is mildly enlarged. The pulmonary vasculature is noncongested. Chronic interstitial thickening is similar to previous. There are left basilar opacities. No large pleural effusion or pneumothorax is seen. The skeletal structures are osteopenic. There are chronic/healed left-sided rib fractures. IMPRESSION: 1. Cardiomegaly without radiographic evidence of congestive failure. 2. Left basilar opacities could represent atelectasis versus an infectious/inflammatory pneumonitis. Clinical correlation will be required. ACT 112: Negative or not required by law. Electronically signed by: Wil Hernandez M.D. 06/22/2023 10:46 PM Discharge Plan Visit Data Chief Complaint: Flu Like Symptoms Stated Complaint: FEVER, COUGH ED Provider: Almas Miller Discharge Problem: Febrile illness, acute Patient Disposition: Admitted As Inpatient Discharge Instructions Interventions: ED Discharge Assessment Last Done: 06/22/23 23:54
[2023-06-22 20:49] LABS: BUN Creatinine Ratio 22.5 (10-20); Bilirubin Direct 0.1 mg/dl (0-0.2); Bilirubin,Total 0.7 mg/dl (0.2-1.0); Calcium 9.4 mg/dl (8.6-10.3); Creatinine Clr Calc Pharmacy 92.3 ml/min; Est GFR (African American) 109.4 ml/min; Est GFR (Non-African American) 94.4 ml/min; Magnesium 1.8 mg/dl (1.7-2.4); Potassium 3.7 mmol/L (3.5-5.1); Total Protein 7.4 gm/dl (6.0-8.3)
[2023-06-22] MEDS ORDERED: SODIUM CHLORIDE 0.9% 1,000 ML IV ONE (20:50)
[2023-06-22] MEDS ORDERED: SODIUM CHLORIDE 0.9% 500 ML IV ONE ×2 (20:50→23:04)
[2023-06-22] MEDS ORDERED: levoFLOXacin/D5W 750 MG/150 ML BAG IV STA (20:51)
[2023-06-22 20:52] LABS: Basophils # (auto) 0.05 K/uL (0.00-0.20); Basophils % (auto) 0.4 %; Eosinophils # (auto) 0.08 K/uL (0.00-0.50); Eosinophils % (auto) 0.6 %; Hematocrit (blood only) 46.9 % (42.0-52.0); Hemoglobin 15.7 g/dl (14.0-18.0); Immature Granulocytes # (auto) 0.05 K/uL (0.01-0.20); Immature Granulocytes % (auto) 0.4 %; Lymphocytes # (auto) 1.17 K/uL (1.20-3.40); Lymphocytes % (auto) 8.8 %; Mean Corpuscular Hemoglobin 30.7 pg (25.0-34.0); Mean Corpuscular Hgb Conc 33.5 g/dL (32.0-36.0); Mean Corpuscular Volume 91.6 fL (80.0-100.0); Mean Platelet Volume 10.1 fL (9.4-12.4); Monocytes % (auto) 7.5 %; Neutrophils # (auto) 10.94 K/uL (1.40-6.50); Neutrophils % (auto) 82.3 %; Platelet Count 223 K/uL (130-400); RDW Coefficient of Variation 12.3 % (11.5-14.5); RDW Standard Deviation 41.3 fL (36.4-46.3); Red Blood Count 5.12 M/uL (4.70-6.10); White Blood Count 13.29 K/ul (4.8-10.8)
[2023-06-22 20:56] LABS: Adenovirus PCR Not Detected (NotDetected); Bordetella parapertussis PCR Not Detected (NotDetected); Bordetella pertussis PCR Not Detected (NotDetected); Chlamydia pneumoniae PCR Not Detected (NotDetected); Coronavirus 229E PCR Not Detected (NotDetected); Coronavirus CoV-2 (COVID19)PCR Not Detected (NotDetected); Coronavirus HKU1 PCR Not Detected (NotDetected); Coronavirus NL63 PCR Not Detected (NotDetected); Coronavirus OC43PCR Not Detected (NotDetected); Human Metapneumovirus PCR Not Detected (NotDetected); Influenza A PCR Not Detected (NotDetected); Influenza B PCR Not Detected (NotDetected); Mycoplasma pneumoniae PCR Not Detected (NotDetected); Parainfluenza Virus 1 PCR Not Detected (NotDetected); Parainfluenza Virus 2 PCR Not Detected (NotDetected); Parainfluenza Virus 3 PCR Not Detected (NotDetected); Parainfluenza Virus 4 PCR Not Detected (NotDetected); Respiratory Syncytial VirusPCR Not Detected (NotDetected); Troponin I High Sensitivity 12.4 pg/ml (0-20)
[2023-06-22 21:02] LABS: Rhinovirus/Enterovirus PCR DETECTED (NotDetected)
[2023-06-22 21:06] LABS: Appearance Urine Clear (Clear); Bacteria Urine Automated Negative (Negative); Bilirubin Urine Negative (Negative); Blood Urine Negative (Negative); Color Urine Dark Yellow; Epithelial Cell Urine Auto 20-30 /lpf (0-5); Glucose Urine UA Negative (Negative); Ketones Urine Trace (Negative); Leukocyte Esterase Urine Negative (Negative); Nitrite Urine Negative (Negative); Protein Urine 1+ (Negative); RBC Urine Automated 0-4 /hpf (0-4); Specific Gravity Urine 1.042 (1.000-1.030); Urobilinogen Urine Negative (Negative); pH Urine 5.5 (4.5-7.5)
--- NOTE | 2023-06-22 22:47 | XRay Report ---
SINGLE VIEW CHEST CLINICAL HISTORY: Sepsis. FINDINGS: An AP, portable, upright chest radiograph is compared to study dated 03/14/2022. Correlation is made with chest CT dated 01/12/2013. The examination is degraded by portable technique and patient rotation. The heart is mildly enlarged. The pulmonary vasculature is noncongested. Chronic interstit ial thickening is similar to previous. There are left basilar opacities. No large pleural effusion or pneumothorax is seen. The skeletal structures are osteopenic. There are chronic/healed left-sided ri b fractures. IMPRESSION: 1. Cardiomegaly without radiographic evidence of congestive failure. 2. Left basilar opacities could represent atelectasis versus an infectious/inflammatory pneumonitis. Clinical correlation will be required. ACT 112: Negative or not required by law. Electronically signed by: Wil Hernandez M.D. 06/22/2023 10:46 PM
--- NOTE | 2023-06-22 22:51 | History & Physical Report ---
Date of Service June 22, 2023 Assessment & Plan (1) Sepsis: Plan: -Pt presents with febrile illness and cough, leukocytosis, elevated lactate, CXR concerning for pneumonia, tachycardia and borderline hypotension- meeting SIRS criteria on admission -Sepsis due to pulmonary source- likely aspiration pneumonia -Noted to be rhino/enterovirus positive, possible component of viral pneumonia though suspect the superimposed bacterial infection from aspiration largely driving pt's febrile illness -Repeat lactate pending -Continue IVF repletion, currently LR 100 cc/hr -Levofloxacin initiated in ER, will continue for now for coverage of aspiration PNA -MRSA swab ordered, will add vancomycin if positive -Tylenol 1000 mg IV q8h PRN for fever -Monitor CBC (2) Pneumonia: Plan: -See above (3) Acute hypoxic respiratory failure: Plan: -Secondary to pneumonia as above -Currently stable respiratory status on 2L NC, wean to RA (4) History of CVA (cerebrovascular accident): Plan: -CVA in 2020 with resultant dysphagia limiting oral intake to liquids -Speech evaluation ordered for AM -Aspirin, atorvastatin held while NPO (5) HLD (hyperlipidemia): Plan: -Atorvastatin held while NPO (6) Anxiety with depression: Plan: -Home Zoloft and lorazepam held while NPO (7) Dementia: Plan: -History of severe dementia with essentially non-verbal status and requiring 24/7 care -Memantine held while NPO (8) Diabetes: Plan: -Home metformin held -Lantus, SSI while in hospital -BSG acceptable on admission (9) Hypothyroidism: Plan: -Home levothyroxine converted to IV while NPO (10) GERD (gastroesophageal reflux disease): Plan: -Home omeprazole switched to pantoprazole IV while NPO Plan FENGI: NPO Code status: DNR/DNI DVT prophylaxis: Lovenox Isolation: Contact Unit: PCU Disposition planning: Anticipate return to SNF History of Present Illness Chief Complaint: Fever Primary Care Provider: [facility] Pt is 73 yo M with PMH HLD, GERD, anxiety, hypothyroidism, DM2, severe dementia, CVA in 2020 w/ resultant largely nonverbal status and wheelchair-bound presenting with fever. History provided by at bedside. Pt is [facility] resident, nonverbal at baseline. reports pt has had intermittent fevers and non-productive cough with chest rattling since 1/9. She brought him to ER today after worsening condition, including 90% pulse oximetry at [facility]. He has had reduced oral intake as well, typically receiving thickened liquids. Pt arrived to ER with HR 100s, normal BP/borderline hypotensive later to 100/60, temp 38.6 C, stated on 2L NC. Initial evaluation significant for WBC 13.3, lactate 2.8. Negative PCT. UA w/ specific gravity 1.04. Rhino/enterovirus positive on RVP. CXR demonstrating LLL infiltrate. ER interventions include 2L NSS total in boluses, Tylenol 1000 mg IV, levofloxacin 750 mg IV. Pt unable to provide any history. Per , this is his baseline mental status and usually only wakes to receive feeds, rarely speaks. Allergies Allergy/AdvReac Type Severity Reaction Status Date / Time ampicillin Allergy Unknown colitis Verified 06/22/23 20:36 celecoxib Allergy Unknown RASH Verified 06/22/23 20:36 clindamycin Allergy Unknown colitis Verified 06/22/23 20:36 penicillin V Allergy Unknown COLITIS Verified 06/22/23 20:36 WITH ALL CILLINS Home Medications Medication Instructions Recorded Confirmed Type atorvastatin 40 mg tablet 40 mg PO QPM 04/01/21 06/22/23 History memantine 10 mg tablet 10 mg PO BID 04/01/21 06/22/23 History sertraline 50 mg tablet 50 mg PO QAM 04/01/21 06/22/23 History aspirin 81 mg tablet,delayed 81 mg PO Q OTHER DAY 01/16/22 06/22/23 History release docusate sodium 100 mg capsule 100 mg PO BID 03/15/22 06/22/23 History (Colace) B complex-C 500 mg-folic 400 1 tab PO QAM 06/22/23 06/22/23 History mcg-zinc 23.9 mg-cupric 3 mg-vit E tablet (Twlmzxlanpdw-Zglf-Evhpne) acetaminophen 325 mg tablet 650 mg PO BID 06/22/23 06/22/23 History acetaminophen 325 mg tablet 650 mg PO Q6 PRN Pain 06/22/23 06/22/23 History acetaminophen 325 mg tablet 650 mg PO Q6 PRN temp>100 06/22/23 06/22/23 History carboxymethylcellulose sodium 0.5 2 drp OPB QID 06/22/23 06/22/23 History % eye drops in a dropperette (Refresh Plus) cholecalciferol (vitamin D3) 50 50 mcg PO QAM 06/22/23 06/22/23 History mcg (2,000 unit) tablet (Vitamin D3) eyelid cleansers pads 1 pad topical QAM 06/22/23 06/22/23 History guaifenesin 400 mg tablet 400 mg PO QID 06/22/23 06/22/23 History insulin glargine 100 unit/mL 20 unit subcut QPM 06/22/23 06/22/23 History subcutaneous solution (Lantus U-100 Insulin) levothyroxine 75 mcg tablet 75 mcg PO QAM 06/22/23 06/22/23 History lorazepam 0.5 mg tablet 0.25 mg PO DAILY 06/22/23 06/22/23 History metformin 500 mg tablet 1,000 mg PO BID 06/22/23 06/22/23 History omeprazole 20 mg capsule,delayed 20 mg PO QAM 06/22/23 06/22/23 History release sennosides 8.6 mg tablet (senna) 8.6 mg PO BID 06/22/23 06/22/23 History Past Med/Surg History Medical History (Updated 06/22/23 @ 23:06 by Yamila Rosa MD) History of CVA (cerebrovascular accident) HLD (hyperlipidemia) Senile degeneration of brain Seizure Fall COVID-19 Ambulatory dysfunction High cholesterol Dementia Surgical History History of knee joint replacement Family History Mother Diabetes Social History Smoking Status: Never smoker Hx Alcohol Use: No Hx Substance Use: No Preferred Language: Swazi Communication Ability: Impaired Communication Ability Comment: patient is very demented, confused 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: No Beliefs That Will Affect Care: None marital status: Current Living Situation: Spouse Current Living Situation Comment: 1 story home with How many Children do You have: 2 Feels Safe at Home: Yes Assistive Devices: None Review of Systems Review of Systems: Per HPI/Subjective Physical Exam Physical Exam: General: unresponsive, mouth open HEENT: PERRL, conjunctivae clear without injection, anicteric sclerae, dry mucous membranes, clear oropharynx without exudate or erythema Neck: supple, trachea midline, no thyromegaly, no JVD, no cervical lymphadenopathy CV: Mild tachycardia but regular rhythm, normal S1 and S2, no murmurs Resp: Coarse breath sounds with crackles in LLL, no increased work of breathing Abd: Soft, nontender, nondistended, no guarding or rebound, no hepatosplenomegaly MSK: Normal bulk of all four extremities Neuro: unable to assess. Does respond to noxious stimuli Skin: no rashes or lesions, warm and dry Ext: no LE peripheral edema or erythema, capillary refill <2s in all four extremities, 2+ LE peripheral pulses b/l Results & Data Results & Data Vital Signs (Past 12 Hours) Vital Signs Temp Pulse Pulse Resp BP BP Pulse Ox 06/22/23 22:00 87 18 93/63 L 97 06/22/23 21:50 83 16 96 06/22/23 21:30 81 19 99/69 L 97 06/22/23 21:17 81 23 114/79 96 06/22/23 21:00 93 H 23 114/79 95 06/22/23 20:30 69 23 103/64 94 06/22/23 20:00 94 H 22 120/78 93 06/22/23 19:30 38.6 C H 108 H 22 124/88 95 06/22/23 19:30 38.6 C H 108 H 22 124/88 95 O2 Del Method O2 Flow Rate 06/22/23 22:00 06/22/23 21:50 Nasal Cannula 2 06/22/23 21:30 06/22/23 21:17 Nasal Cannula 2 06/22/23 21:00 06/22/23 20:30 06/22/23 20:00 06/22/23 19:30 Nasal Cannula 2 06/22/23 19:30 Nasal Cannula 2 Code Status & VTE Plan VTE Prophylaxis Plan VTE Prophylaxis will be ordered: Yes Supervising Physician Co-Signing Physician Notes Attending addendum: I have physically seen this patient, have supervised the medical residents activities, and agree with the H&P unless as otherwise noted. Assessment and Plan: Sepsis due to probable aspiration pneumonia left lower lobe/rhinovirus infection- Significant reactions to penicillins Given levofloxacin 750 mg IV from the ED, and will continue MRSA swab, start vancomycin if positive Acetaminophen 1 g IV every 8 hours as needed for mild pain or fever DuoNebs every 2 hours as needed Pulmicort Respules 0.5 mg inhaled twice daily Nasal cannula oxygen, titrate to keep pulse ox 92-94% Hypotension/dehydration- NSS + KCl 20 mill equivalents at 150 mL/h x 1 L Bilateral conjunctivitis- Start sulfacetamide 10% ophthalmic solution, 2 drops 4 times daily x 5 days Diabetes mellitus- Continue glargine split dosing as noted Placed on Accu-Cheks with NovoLog SSI Severe Parkinson's/SDAT- Continue memantine, sertraline, Resident Activity Tracking Resident Involvement: Resident Care Provided Care Provided: Adult Hospital Medicine
[2023-06-22] MEDS ORDERED: ALBUT/IPRATROP 3MG/0.5MG NEB 3 ML VIAL NEB PRN (23:34)
[2023-06-22] MEDS ORDERED: ALBUT/IPRATROP 3MG/0.5MG NEB 3 ML VIAL NEB ONE (23:35)
[2023-06-22] MEDS ORDERED: BUDESONIDE 0.5 MG/2 ML VIAL (PULMICORT) NEB ONE (23:35)
[2023-06-22] MEDS ORDERED: NSS + 20MEQ KCL 20 MEQ/1,000 ML BAG IV SCH (23:45)
[2023-06-22] MEDS ORDERED: GLUCOSE 40% GEL 15 GM TUBE PO PRN (23:54)
[2023-06-22] MEDS ORDERED: GLUCOSE 10 TAB/TUBE PO PRN (23:54)
[2023-06-22] MEDS ORDERED: DEXTROSE 50% 50 ML SYRINGE IV PRN (23:54)
[2023-06-22] MEDS ORDERED: ACETAMINOPHEN 1,000 MG/100 ML VIAL IV PRN (23:54)
[2023-06-22] MEDS ORDERED: CARBOHYDRATES FOR HYPOGLYCEMIA PO PRN (23:54)
[2023-06-22] MEDS ORDERED: GLUCAGON FOR INJ 1 MG VIAL SQ PRN (23:54)
[2023-06-22] MEDS ORDERED: LACTATED RINGER'S 1,000 ML IV SCH (23:54)
[2023-06-23] MEDS ORDERED: ALBUMIN 5% 250 ML IV ONE (00:03)
[2023-06-23 04:59] LABS: BUN Creatinine Ratio 20.6 (10-20); Bilirubin,Total 0.8 mg/dl (0.2-1.0); Calcium 8.2 mg/dl (8.6-10.3); Est GFR (African American) 114.9 ml/min; Est GFR (Non-African American) 99.1 ml/min; Potassium 3.5 mmol/L (3.5-5.1)
[2023-06-23 05:00] LABS: Albumin Globulin Ratio 1.3 (0.9-2); Albumin Level 3.4 gm/dl (3.4-5.0); Globulin 2.6 gm/dl (2.5-4.0)
--- NOTE | 2023-06-23 05:07 | Billing Data ---
Date of Service June 23, 2023 Coding Level of Care Code 84243 INT INP/OBS CARE
[2023-06-23] MEDS: INSULIN ASPART PER UNIT CHARGE SC SCH ×3 (06:13→19:11)
--- NOTE | 2023-06-23 07:15 | Hospitalist Progress Note ---
"Date of Service June 23, 2023 Assessment & Plan (1) Sepsis: Plan: Joe is a 73M w/ past medical history of severe dementia (non-verbal baseline), GERD, DM, hypothyroidism, HLD, and prior stroke (resultant dysphagia) who presented for evaluation of worsening febrile illness and cough and was admitted for management of sepsis in the setting of suspected aspiration pneumonia vs viral pneumonia. Sepsis | Suspect Aspiration PNA vs Viral PNA | Hypoxic Respiratory Failure - Presenting w/ febrile illness and cough, leukocytosis, elevated lactate, CXR w/ L basilar opacities, tachycardia and borderline hypotension - Sepsis: Patient met SIRS criteria on admission w/ suspected pulmonary source - Patient + for Rhino/Enterovirus, potential contributor to viral PNA, high suspicion for aspiration/bacterial PNA given history - Patient s/p 1.5 L NS since presentation, lactate downtrending - S/p Levofloxacin as patient is allergic to PCNs - MRSA nares negative, Procalcitonin negative, blood cultures pending - Continue Tylenol 1000 mg IV q8h PRN for fever --- Speech evaluation with low concern for aspiration, combined with negative procalcitonin, negative MRSA nares, and resolved leukocytosis, low suspicion for bacterial/aspiration PNA, discontinue Levofloxacin and continue supportive measures for Viral PNA Chronic Conditions: - Hx of CVA (2020): resultant dysphagia limites PO intake to liquids, continue Aspirin/Statin, Speech eval low risk for aspiration - HLD: continue Statin - Anxiety/Depression: continue Zoloft/lorazepam - Dementia: severe at baseline, non-verbal & requiring 24/7 care, continue Memantine - Diabetes: metformin held, continue Lantus and SSI inpatient, no longer NPO - Hypothyroidism: continue Levothyroxine PO - GERD: continue Pantoprazole PO (2) Pneumonia: (3) Acute hypoxic respiratory failure: (4) History of CVA (cerebrovascular accident): (5) HLD (hyperlipidemia): (6) Anxiety with depression: (7) Dementia: (8) Diabetes: (9) Hypothyroidism: (10) GERD (gastroesophageal reflux disease): Plan FENGI: Regular w/ thickened liquids ([place]) Code status: DNR/DNI DVT prophylaxis: Lovenox inpatient Isolation: Contact Unit: PCU Disposition planning: Anticipate return to [facility] Admission and Anticipated Discharge Date Admission Date: June 22, 2023 Supervising Physician Co-Signing Physician Notes Attending Physician Supervision Note: I independently interviewed and examined the patient and verified the anthony history and physical, reviewed labs and image studies and agree with findings and care plan noted above. SIRS due to viral infection - received IVF and levaquin. wbc improved. normal procalcitonin. d/c antibiotics. monitor. Concern of aspiration - has had VFS twice in the past - no sign of aspiration in both. will follow dietary recommendation by speech therapy at [facility]. Dementia - did bring up goals of care discussion with . would like to approach further at the [facility] Subjective 06/23: Patient resting comfortably in bed upon arrival, remains non-verbal, occasional wet cough. Patient responds to simple command to squeeze provider's hand, otherwise, no additional responses or HPI. No acute events overnight. 1400 Discussed with patient's at bedside who believes that patient has returned to baseline apart from his ongoing cough and supportive oxygen therapy. She notes that he ate lunch well without difficulty. She expressed a desire to get him back to [facility] when he is stable. Review of Systems Review of Systems: Per HPI/Subjective Physical Exam Physical Exam: General: unresponsive, mouth open HEENT: PERRL, anicteric sclerae, dry mucous membranes, clear oropharynx Neck: supple, trachea midline, no thyromegaly, no JVD, no cervical lymphadenopathy CV: RRR, normal S1 and S2, no murmurs Resp: Non-labored, breath sounds coarse, LLL crackles, no wheezing Abd: Soft, active bowel sounds Neuro: Unable to assess, will squeeze providers hand, otherwise non-responsive Skin: no rashes or lesions, warm and dry Ext: no LE edema or erythema, capillary refill <2s in all four extremities, 2+ LE peripheral pulses b/l Results & Data Results & Data Vital Signs (Past 12 Hours) Vital Signs Temp Pulse Pulse Resp BP BP Pulse Ox 06/23/23 06:00 77 18 119/86 96 06/23/23 04:40 06/23/23 04:00 81 16 116/87 99 06/23/23 02:57 84 20 125/75 93 06/23/23 02:45 84 19 99 06/23/23 02:09 36.9 C 77 19 118/80 97 06/22/23 23:27 74 06/22/23 22:30 81 19 95/66 L 97 06/22/23 22:00 87 18 93/63 L 97 06/22/23 21:50 83 16 96 06/22/23 21:30 81 19 99/69 L 97 06/22/23 21:17 81 23 114/79 96 06/22/23 21:00 93 H 23 114/79 95 06/22/23 20:30 69 23 103/64 94 06/22/23 20:10 83 06/22/23 20:00 94 H 22 120/78 93 06/22/23 19:30 38.6 C H 108 H 22 124/88 95 06/22/23 19:30 38.6 C H 108 H 22 124/88 95 O2 Del Method O2 Flow Rate 06/23/23 06:00 Nasal Cannula 2 06/23/23 04:40 Nasal Cannula 2 06/23/23 04:00 Nasal Cannula 2 06/23/23 02:57 Nasal Cannula 2 06/23/23 02:45 Nasal Cannula 2 06/23/23 02:09 Nasal Cannula 2 06/22/23 23:27 06/22/23 22:30 Nasal Cannula 2 06/22/23 22:00 06/22/23 21:50 Nasal Cannula 2 06/22/23 21:30 06/22/23 21:17 Nasal Cannula 2 06/22/23 21:00 06/22/23 20:30 06/22/23 20:10 06/22/23 20:00 06/22/23 19:30 Nasal Cannula 2 06/22/23 19:30 Nasal Cannula 2 Resident Activity Tracking Resident Involvement: Resident Care Provided Care Provided: Adult [facility] Medicine"
[2023-06-23] MEDS: BUDESONIDE 0.5 MG/2 ML VIAL (PULMICORT) NEB SCH ×2 (07:17→19:30)
[2023-06-23 08:16] LABS: Basophils # (auto) 0.04 K/uL (0.00-0.20); Basophils % (auto) 0.4 %; Eosinophils # (auto) 0.14 K/uL (0.00-0.50); Eosinophils % (auto) 1.3 %; Hematocrit (blood only) 36.1 % (42.0-52.0); Hemoglobin 12.7 g/dl (14.0-18.0); Immature Granulocytes # (auto) 0.05 K/uL (0.01-0.20); Immature Granulocytes % (auto) 0.5 %; Lymphocytes # (auto) 1.43 K/uL (1.20-3.40); Lymphocytes % (auto) 13.6 %; Mean Corpuscular Hemoglobin 31.8 pg (25.0-34.0); Mean Corpuscular Hgb Conc 35.2 g/dL (32.0-36.0); Mean Corpuscular Volume 90.5 fL (80.0-100.0); Mean Platelet Volume 9.4 fL (9.4-12.4); Monocytes # (auto) 0.82 K/uL (0.11-0.59); Monocytes % (auto) 7.8 %; Neutrophils # (auto) 8.01 K/uL (1.40-6.50); Neutrophils % (auto) 76.4 %; Platelet Count 165 K/uL (130-400); RDW Coefficient of Variation 12.3 % (11.5-14.5); RDW Standard Deviation 40.8 fL (36.4-46.3); Red Blood Count 3.99 M/uL (4.70-6.10); White Blood Count 10.49 K/ul (4.8-10.8)
[2023-06-23] MEDS ORDERED: LANTUS PER UNIT CHARGE SQ SCH (09:00)
[2023-06-23] MEDS: SERTRALINE HCL 50 MG TABLET PO SCH ×3 (09:13→09:24)
[2023-06-23] MEDS: guaiFENesin 200 MG TAB PO SCH ×5 (09:13→20:54)
[2023-06-23] MEDS: ENOXAPARIN INJ 40 MG/0.4 ML SYR SQ SCH (09:13)
[2023-06-23] MEDS: MEMANTINE HCL 10 MG TAB PO SCH ×3 (09:13→18:54)
[2023-06-23] MEDS: SULFACETAMIDE SODIUM 10% OP SOLN 15 ML BTL OP SCH ×4 (09:14→21:03)
[2023-06-23] MEDS ORDERED: PANTOprazole 40 MG in SYRINGE 0 ML IV SCH (11:00)
[2023-06-23] MEDS ORDERED: SODIUM CHLORIDE 0.9% 1,000 ML IV SCH (13:15)
[2023-06-23] MEDS ORDERED: levoFLOXacin/D5W 750 MG/150 ML BAG IV SCH (20:00)
[2023-06-23] MEDS ORDERED: ATORVASTATIN 40 MG TAB PO SCH (21:00)
[2023-06-23] MEDS: LANTUS PER UNIT CHARGE SQ SCH (21:03)
[2023-06-24] MEDS ORDERED: LEVOTHYROXINE SODIUM 75 MCG TABLET PO SCH (06:30)
--- NOTE | 2023-06-24 07:01 | Discharge Summary ---
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 History provided by at bedside. Pt is [facility], nonverbal at baseline. reports pt has had intermittent fevers and non-productive cough with chest rattling since 06/19. She brought him to ER today after worsening condition, including 90% pulse oximetry at [facility]. He has had reduced oral intake as well, typically receiving thickened liquids. Pt arrived to ER with HR 100s, normal BP/borderline hypotensive later to 100/60, temp 38.6 C, stated on 2L NC. Initial evaluation significant for WBC 13.3, lactate 2.8. Negative PCT. UA w/ specific gravity 1.04. Rhino/enterovirus positive on RVP. CXR demonstrating LLL infiltrate. ER interventions include 2L NSS total in boluses, Tylenol 1000 mg IV, levofloxacin 750 mg IV. Pt unable to provide any history. Per , this is his baseline mental status and usually only wakes to receive feeds, rarely speaks. Admission Exam Per Admitting Provider General: unresponsive, mouth open HEENT: PERRL, conjunctivae clear without injection, anicteric sclerae, dry mucous membranes, clear oropharynx without exudate or erythema Neck: supple, trachea midline, no thyromegaly, no JVD, no cervical lymphaden opathy CV: Mild tachycardia but regular rhythm, normal S1 and S2, no murmurs Resp: Coarse breath sounds with crackles in LLL, no increased work of breathing Abd: Soft, nontender, nondistended, no guarding or rebound, no hepatosplenomegaly MSK: Normal bulk of all four extremities Neuro: unable to assess. Does respond to noxious stimuli Skin: no rashes or lesions, warm and dry Ext: no LE peripheral edema or erythema, capillary refill <2s in all four extremities, 2+ LE peripheral pulses b/l Principal Diagnosis SIRS d/t Viral PNA Discharge Exam General: minimally responsive, mouth open, wet cough HEENT: PERRL, anicteric sclerae, dry mucous membranes, clear oropharynx Neck: supple, trachea midline, no JVD CV: RRR, normal S1 and S2, no murmurs Resp: Non-labored, breath sounds coarse, LLL crackles (mild improvement), no wheezing Abd: Soft, active bowel sounds Neuro: Unable to assess, will squeeze providers hand, otherwise non-responsive Skin: no rashes or lesions, warm and dry Ext: no LE edema or erythema, capillary refill <2s in all four extremities, 2+ LE peripheral pulses b/l Discharge Data Allergies Allergy/AdvReac Type Severity Reaction Status Date / Time ampicillin Allergy Unknown colitis Verified 06/22/23 20:36 celecoxib Allergy Unknown RASH Verified 06/22/23 20:36 clindamycin Allergy Unknown colitis Verified 06/22/23 20:36 penicillin V Allergy Unknown COLITIS Verified 06/22/23 20:36 WITH ALL CILLINS Consultations 06/22/23 22:00 ED Decision to Admit Stat Hospital Course (1) Sepsis: Joe is a 73M w/ past medical history of severe dementia (non-verbal baseline), GERD, DM, hypothyroidism, HLD, and prior stroke (resultant dysphagia) who p resented for evaluation of worsening febrile illness and cough and was admitted for management of sepsis in the setting of suspected pneumonia. Sepsis | Suspect Viral PNA | Hypoxic Respiratory Failure - Presenting w/ febrile illness and cough, leukocytosis, elevated lactate, CXR w/ L basilar opacities, tachycardia and borderline hypotension - Sepsis: Patient met SIRS criteria on admission w/ suspected pulmonary source - Patient + for Rhino/Enterovirus, potential contributor to viral PNA, high suspicion for aspiration/bacterial PNA given history - Patient s/p 1.5 L NS since presentation, lactate downtrending - S/p Levofloxacin as patient is allergic to PCNs - MRSA nares negative, Procalcitonin negative, blood cultures pending - Continue Tylenol 1000 mg IV q8h PRN for fever - Speech evaluation with low concern for aspiration, combined with negative procalcitonin, negative MRSA nares, and resolved leukocytosis, low suspicion for bacterial/aspiration PNA, discontinue Levofloxacin and continue supportive measures for Viral PNA --- Continue supportive measures for Viral PNA, encourage hydration and ongoing nutrition, continue Tylenol PRN Chronic Conditions: - Hx of CVA (2020): resultant dysphagia limites PO intake, continue Aspirin/Statin, Speech eval low risk for aspiration - HLD: continue Statin - Anxiety/Depression: continue Zoloft/lorazepam - Dementia: severe at baseline, non-verbal & requiring 01/01 care, continue Shaneka ntine - Diabetes: metformin held, continue Lantus and SSI inpatient, restart Metformin on discharge - Hypothyroidism: continue Levothyroxine PO - GERD: continue Pantoprazole PO FENGI: Regular w/ thickened liquids (Wrens) Code status: DNR/DNI DVT prophylaxis: Lovenox inpatient Isolation: Contact Unit: PCU Disposition planning: Anticipate return to [facility] 06/24 (2) Pneumonia: (3) Acute hypoxic respiratory failure: (4) History of CVA (cerebrovascular accident): (5) HLD (hyperlipidemia): (6) Anxiety with depression: (7) Dementia: (8) Diabetes: (9) Hypothyroidism: (10) GERD (gastroesophageal reflux disease): Total Time Total Time Spent Total Time Spent (In Minutes): See attending attestation Discharge Plan Discharge Items Patient Disposition: Transfer Care Home Fac Reason For Visit: SEPSIS, PNEUMONIA Discharge Diagnosis: Viral Pneumonia (Entero/Rhinovirus) Activity: Per Instructions section Non-emergency contact: Primary Care Provider Call non-emergency contact if: you have any medication questions and your symptoms worsen Follow-up/Referrals: [facility] [Primary Care Provider] - Diet: Carb Consistent or DM2 and Heart Healthy Liquid Consistency: Wrens thick Addtl Attending Provider Instructions: Joe is a 73M w/ past medical history of severe dementia (non-verbal baseline), GERD, DM, hypothyroidism, HLD, and prior stroke (resultant dysphagia) who presented for evaluation of worsening febrile illness and cough and was admitted for management of sepsis in the setting of suspected pneumonia. Sepsis | Suspect Viral PNA | Hypoxic Respiratory Failure - Presenting w/ febrile illness and cough, leukocytosis, elevated lactate, CXR w/ L basilar opacities, tachycardia and borderline hypotension - Sepsis: Patient met SIRS criteria on admission w/ suspected pulmonary source - Patient + for Rhino/Enterovirus, potential contributor to viral PNA, high suspicion for aspiration/bacterial PNA given history - Patient s/p 1.5 L NS since presentation, lactate downtrending - S/p Levofloxacin as patient is allergic to PCNs - MRSA nares negative, Procalcitonin negative, blood cultures pending - Continue Tylenol 1000 mg IV q8h PRN for fever - Speech evaluation with low concern for aspiration, combined with negative procalcitonin, negative MRSA nares, and resolved leukocytosis, low suspicion for bacterial/aspiration PNA, discontinue Levofloxacin and continue supportive measures for Viral PNA --- Continue supportive measures for Viral PNA, encourage hydration and ongoing nutrition, continue Tylenol PRN Chronic Conditions: - Hx of CVA (2020): resultant dysphagia limites PO intake, continue Aspirin/Statin, Speech eval low risk for aspiration - HLD: continue Statin - Anxiety/Depression: continue Zoloft/lorazepam - Dementia: severe at baseline, non-verbal & requiring 24/7 care, continue Memantine - Diabetes: metformin held, continue Lantus and SSI inpatient, restart Metformin on discharge - Hypothyroidism: continue Levothyroxine PO - GERD: continue Pantoprazole PO FENGI: Regular w/ thickened liquids (Wrens) Code status: DNR/DNI DVT prophylaxis: Lovenox inpatient Isolation: Contact Unit: PCU Disposition planning: Anticipate return to [facility] 06/24 Pending Studies at Discharge: No Stand-Alone Forms: My [facility] Skilled Items Patient informed of condition?: Yes DNR: Yes Discharge Level of Care: Skilled Communicable Disease: Yes (Entero/Rhinovirus (Contact precaution)) Discharge Prognosis: Stable Lines: None Urinary Catheter: No Medications and DC Order Prescriptions: Continued aspirin 81 mg Tablet,Delayed Release (Dr/Ec) 81 mg PO Q OTHER DAY memantine 10 mg tablet 10 mg PO BID atorvastatin 40 mg tablet 40 mg PO QPM sertraline 50 mg tablet 50 mg PO QAM docusate sodium [Colace] 100 mg Capsule 100 mg PO BID acetaminophen 325 mg Tablet 650 mg PO BID insulin glargine [Lantus U-100 Insulin] 100 unit/mL solution 20 unit SUBCUT QPM levothyroxine 75 mcg tablet 75 mcg PO QAM metformin 500 mg tablet 1,000 mg PO BID lorazepam 0.5 mg tablet 0.25 mg PO DAILY cholecalciferol (vitamin D3) [Vitamin D3] 50 mcg (2,000 unit) Tablet 50 mcg PO QAM sennosides [senna] 8.6 mg Tablet 8.6 mg PO BID omeprazole 20 mg capsule,delayed release(DR/EC) 20 mg PO QAM Rx Instructions: start 06/23/23 acetaminophen 325 mg Tablet 650 mg PO Q6 MDD 3g PRN (Reason: Pain) acetaminophen 325 mg Tablet 650 mg PO Q6 MDD 3g PRN (Reason: temp>100) Mkfnccsivdim-Pyru-Znggnr 500 mg-400 mcg- 23.9 mg-3 mg Tablet 1 tab PO QAM eyelid cleansers Pad 1 pad TOPICAL QAM Rx Instructions: apply to b/l eyes for chronic conjunctivitis carboxymethylcellulose sodium [Refresh Plus] 0.5 % Dropperette 2 drp OPB QID guaifenesin 400 mg Tablet 400 mg PO QID Rx Instructions: start 06/22/23 take for 2 weeks Discharge Orders: Discharge Order (Routine); Ordered 06/24/23 Ordered By: Nan Frias Admission Data Admit Date/Time: 06/22/23 22:50 Attending Provider: Sherrie Sands Admit Provider: Yamila Rosa Primary Care Provider: [facility], [place] Other Providers: Raghavendra Vides Other Interventions: Discharge Summary Assessment (RN) Last Done: 06/24/23 11:10 Supervising Physician Co-Signing Physician Notes Attending Physician Supervision Note: I independently interviewed and examined the patient and verified the anthony history and physical, reviewed labs and image studies and agree with findings and care plan noted above. SIRS due to viral infection - received IVF and levaquin. wbc improved. normal procalcitonin. d/melly antibiotics. stayed stable. Concern of aspiration - has had VFS twice in the past - no sign of aspiration in both. followed dietary recommendation by speech therapy at [facility]. Dementia - did bring up goals of care discussion with . would like to approach further at the SNF Resident Activity Tracking Resident Involvement: Resident Care Provided Care Provided: Adult Hospital Medicine"
[2023-06-24] MEDS: BUDESONIDE 0.5 MG/2 ML VIAL (PULMICORT) NEB SCH (07:18)
[2023-06-24] MEDS ORDERED: INSULIN ASPART PER UNIT CHARGE SC SCH (07:30)
[2023-06-24] MEDS: ENOXAPARIN INJ 40 MG/0.4 ML SYR SQ SCH (08:29)
[2023-06-24] MEDS: guaiFENesin 200 MG TAB PO SCH (08:29)
[2023-06-24] MEDS: MEMANTINE HCL 10 MG TAB PO SCH (08:29)
[2023-06-24] MEDS: SERTRALINE HCL 50 MG TABLET PO SCH (08:29)
[2023-06-24] MEDS: SULFACETAMIDE SODIUM 10% OP SOLN 15 ML BTL OP SCH (08:30)
[2023-06-24] MEDS: LANTUS PER UNIT CHARGE SQ SCH (08:38)
[2023-06-24] MEDS ORDERED: LORazepam 0.5 MG TAB PO SCH (09:00)
[2023-06-24] MEDS ORDERED: ASPIRIN 81 MG ECTAB PO SCH (09:00)
[2023-06-24] MEDS ORDERED: PANTOprazole 40 MG TAB PO SCH (09:00)
--- NOTE | 2023-06-24 20:20 | Electrocardiogram Report ---
Test Reason : Blood Pressure : / mmHG Vent. Rate : 112 BPM Atrial Rate : 112 BPM P-R Int : 194 ms QRS Dur : 076 ms QT Int : 260 ms P-R-T Axes : 060 090 -45 degrees QTc Int : 354 ms Poor data quality, interpretation may be adversely affected Sinus tachycardia Rightward axis Anterior infarct , age undetermined Abnormal ECG When compared with ECG of 15-MAR-2022 05:36, Vent. rate has increased BY 56 BPM Nonspecific T wave abnormality, worse in Anterolateral leads Confirmed by Robert Curtis ([id number]) on 06/24/2023 8:19:38 PM Referred By: REFERRED SELF Confirmed By:Robert Curtis
[2023-06-25] MEDS ORDERED: LEVOTHYROXINE SODIUM 37.5 MCG in SYRINGE 0 ML IV SCH (09:00)
== END 2023-06-24 11:30 | DRG 871 ==
LOC: ED 19:03 → SUATTDRO 22:50 → EDINP 22:50 → 2E 23:54